=== PATIENT | male | born 1930 | race Caucasian/White ===

== ENCOUNTER 2016-06-09 19:35 | Inpatient (IN) | payer MEDICARE ==
[~2016-06-09] VITALS: Ht 185.4 cm; Wt 105.9 kg
[2016-06-09 22:06] LABS: BASOPHILS 0.2 % (0.0-2.0); EOSINOPHILS 0.2 % (0-7); HEMATOCRIT 39.5 % (42.0-54.0); HEMOGLOBIN 12.7 g/dL (13.5-17.5); IMMATURE GRANULOCYTES 0.7 % (0-5); LYMPHOCYTES 10.5 % (15-50); MCH 29.6 pg (26.0-34.0); MCHC 32.2 g/dL (31.0-37.0); MCV 92.1 fL (80.0-100.0); MEAN PLATELET VOLUME 10.7 fL (7.4-10.4); MONOCYTES 7.3 % (2-11); NEUTROPHILS 81.1 % (40-80); PLATELET COUNT 259 10x3/uL (130-400); RBC 4.29 10x6/uL (4.20-6.10); RDW 13.8 % (11.5-14.5)
[2016-06-09 22:09] LABS: ANION GAP 11.5 mmol/L (8-16); CARBON DIOXIDE 31.9 mmol/L (21.0-32.0); CREATININE - SERUM 1.5 mg/dL (0.6-1.3); POTASSIUM - SERUM 4.4 mmol/L (3.5-5.1)
--- NOTE | 2016-06-09 22:50 | NUR ---
PT ARRIVED TO UNIT VIA HOSPITAL BED ACCOMPANIED BY HOSPITAL STAFF AND FAMILY. PT IS A&OX4. O2 @2LPM VIA NC AND LEFT AC PERIPHERAL 20G IV PATENT AND SLOCKED. PT HAS FX RIBS ON THE LEFT SIDE AND C/O OF PAIN 11/19. WCTM. BED LOW. CL INR EACH.
[2016-06-09 22:59] VITALS: BP 190/85; BMI 31.7
--- NOTE | 2016-06-09 23:30 | NUR ---
PT REQ AND REC'D PRN PAIN MEDICATION. WCTM. BED LOW. CL IN REACH.
[2016-06-10 00:45] VITALS: BP 193/88
--- NOTE | 2016-06-10 01:54 | NUR ---
PT RESTING IN BED, AWAKE, DENIES NEEDS. WCTM. BED LOW. CL IN REACH.
--- NOTE | 2016-06-10 04:29 | NUR ---
PT RESTING IN BED, EYES OPEN. NO NEEDS VOICED. WCTM.
[2016-06-10 05:00] VITALS: BP 188/72
--- NOTE | 2016-06-10 05:29 | NUR ---
EYES CLOSED RESPIRATIONS WITH EASE AND UNLABORED.
--- NOTE | 2016-06-10 06:44 | NUR ---
PT HAS BECOME INCREASINGLY CONFUSED THROUGHT THE NIGHT. PT HAS TAKEN OFF TELEMETRY, O2 AND GOWN SEVERAL TIMES STATING HE DIDN'T KNOW WHY. PT ONLY ORIENTED TO SELF THIS AM.
--- NOTE | 2016-06-10 07:15 | NUR ---
AWAKE ALERT CONFUSED AT PRESENT RIB BELT IN PLACE ABD DISTENDED AT PRESENT RESP EVEN AND UNLABORED AT PRESENT 02 CONT AT 2L N/C AT PRESENT.
--- NOTE | 2016-06-10 09:00 | NUR ---
PT WILL NOT LEAVE TELEMTRY ON AT PRESENT.
[2016-06-10 09:42] VITALS: BP 147/62
--- NOTE | 2016-06-10 11:00 | NUR ---
QUIET IN ROOM AT PRESENT N/C.
--- NOTE | 2016-06-10 14:15 | NUR ---
CONFUSED INCONT OF URINE AT PRESENT DENIES ANY NEEDS NO FAMILY AT BEDSIDE TELEMTRY IN PLACE.
--- NOTE | 2016-06-10 15:00 | NUR ---
ECHO DONE MARTINE WELL AT PRESENT BED ALARM IN PLACE AT PRESENT.
--- NOTE | 2016-06-10 16:00 | NUR ---
REPOSITIONED FOR COMFORT AT PRESENT DENIES ANY NEEDS AT THIS TIME .
[2016-06-10 16:30] LABS: % SATURATION 8 % (15-55); IRON 24 ug/dl (35-150); TOTAL IRON BIND CAPACITY 294 ug/dl (260-445); UNSAT IRON BIND CAPACITY 270 ug/dl (150-375)
[2016-06-10 16:45] LABS: CKMB 2.6 U/L (0.0-3.6); CREATINE KINASE 154 UL (21-232); FERRITIN 191 ng/mL (3-244); TROPONIN-I 0.037 ng/mL (0.000-0.060)
[2016-06-10 17:20] VITALS: BP 139/70
--- NOTE | 2016-06-10 18:07 | NUR ---
SLEEPING QUIETLY AT PRESENT REP EVEN AND UNLABORED RIB BELT IN PLACE INCONT OF URINE.
[2016-06-10 19:00] VITALS: BP 160/81
--- NOTE | 2016-06-10 20:00 | NUR ---
ASSESSMENT PER FLOWSHEET. SLIGHTLY CONFUSED AT TIMES. TURNS SELF CROSSWAYS IN BED REPOSITIONED. RIB BINDER IN PLACE. IV PATENT LEFT AC SALINE LOCK. SITE CLEAR. SKIN TEAR TO RT ELBOW WITH BRUISES. OPSITE IN PLACE. O2 ON 2L/M PER NC. REFUSES TO WEAR SCD'S.
--- NOTE | 2016-06-10 21:30 | NUR ---
HGPK=[id number]. HUMALOG INSULIN 2 UNITS SUBC GIVEN RT ARM PER S/S.
--- NOTE | 2016-06-10 22:31 | NUR ---
RESTING IN BED BED ALARM BED ON SR UP X2 CALL LIGHT WITHIN REACH.
[2016-06-10 23:05] LABS: CKMB 2.1 U/L (0.0-3.6); CREATINE KINASE 136 UL (21-232); TROPONIN-I 0.029 ng/mL (0.000-0.060)
[2016-06-11] VITALS (13 sets, daily range): BP systolic 112–161; BP diastolic 53–80
--- NOTE | 2016-06-11 00:13 | NUR ---
EYES CLOSED RESPIRATIONS WITH EASE AND UNLABORED. SR UP X2 CALL LIGHT WITHIN REACH BED ALARM BED ACTIVATED.
--- NOTE | 2016-06-11 03:01 | NUR ---
PT NOW ON 8L/M OXIMYZER O2 SATS RUNNING 85-88% PLACED ON OXIMYZER BY RT TECH SATS CONTINUE AT 87-89% INCREASED O2 TO 10 L/M PER OXIMYZER. NOTIFIED HEAD PUMPER FOR SOME UPDRAFT TX AND POSSIBLE DIURECTIC. BILATERAL CRACKLES NOTED.
--- NOTE | 2016-06-11 03:29 | NUR ---
GOPAL RN BENCH LAY OUT TECHNICIAN OBTAINED ORDERS FROM ER FOR UNDRAFT TX. ALBUTEROL UP DRAFT TX GIVEN PER RT TECH. URINAL PLACED PT VOIDED 100CC'S SALVADOR COLORED URINE. ABDOMEN DISTENDED BUT SOFT. BLADDER SCAN DONE 0 ML FOUND IN BLADDER. REPPOSITIONED UPRIGHT IN BED. RT TECH INSTRUCTED PT ON USE OF INCENTIVE SPIROMETER.O2 INCREASED TO 15 L/M PER OXIMYZER PER SHITAL RT.
--- NOTE | 2016-06-11 03:40 | NUR ---
O2 SATS NOW SHOWING 93% ON 15 L/M OXIMYZER. RECEIVING ALBUTEROL UPDRAFT TX.
--- NOTE | 2016-06-11 04:18 | NUR ---
SITTING UPRIGHT IN BED O2 SAT READING SHOWS 92-93% ON 15 L/M OXIMYZER.
[2016-06-11 05:18] LABS: BASOPHILS 0.1 % (0.0-2.0); EOSINOPHILS 0.1 % (0-7); HEMATOCRIT 43.9 % (42.0-54.0); IMMATURE GRANULOCYTES 0.5 % (0-5); LYMPHOCYTES 7.4 % (15-50); MCH 29.2 pg (26.0-34.0); MCHC 31.9 g/dL (31.0-37.0); MCV 91.6 fL (80.0-100.0); MEAN PLATELET VOLUME 10.7 fL (7.4-10.4); NEUTROPHILS 84.9 % (40-80); PLATELET COUNT 267 10x3/uL (130-400); RBC 4.79 10x6/uL (4.20-6.10); RDW 13.6 % (11.5-14.5)
[2016-06-11 05:19] LABS: WBC 17.9 10x3/uL (4.8-10.8)
[2016-06-11 05:56] LABS: CALC OSMOLALITY 283 mosm/kg (275-300); CALCIUM 9.2 mg/dL (8.5-10.1); CARBON DIOXIDE 28.4 mmol/L (21.0-32.0); CHLORIDE - SERUM 98 mmol/L (98-107); CKMB 2.4 U/L (0.0-3.6); CREATINE KINASE 132 UL (21-232); CREATININE - SERUM 1.4 mg/dL (0.6-1.3); GLUCOSE 198 mg/dL (74-106); POTASSIUM - SERUM 4.2 mmol/L (3.5-5.1); SODIUM 137 mmol/L (136-145); TROPONIN-I < 0.017 ng/mL (0.000-0.060); UREA NITROGEN 25 mg/dL (7-18); eGFR NON AFRICAN AMERICAN 51 mL/min (90-120)
--- NOTE | 2016-06-11 08:09 | NUR ---
AWAKE AND ALERT. OIRENTED TO SELF ONLY. ATTEMPTS TO REORIENT WITHOUT SUCCESS. LUNGS HAVE RALES THROUGHOUT LUNG KELLER. NON PRODUCTIVE COUGH NOTED. SKIN IS INTACT WITHOUT REDNESS. IV TO LEFT AC IS PATENT WITHOUT REDNESS AT INSERTION SITE. DENIES NEEDS. HOB UP 40 DEGREES. O2 AT 16L OXYMYZER.
--- NOTE | 2016-06-11 10:19 | NUR ---
ASSISTED PER STAFF TO SIT ON SIDE OF BED TO TRY AND URINATE. WILL MONITOR.
--- NOTE | 2016-06-11 10:22 | NUR ---
WOUND CARE CONSULT: OLD BRUISES
--- NOTE | 2016-06-11 11:02 | NUR ---
Rehab Note- Rehab Prescreen Order received. The patient was admitted with broken ribs, that is not an acute rehab diagnosis. The patient is also [employer] & will require a PreAuth prior to IRF stay. Thank you for this referral! Stephany Harden RN Clinical Liaison, Rehab Care/Chris
--- NOTE | 2016-06-11 12:30 | NUR ---
LUNCH TRAY SERVED IN ROOM. REFUSED TO EAT. REFUSED OFFER OF HELP OR AN ALTERNATIVE TRAY. FOUND WITH O2 OFF. SATS AT 78% WILL MONITOR.
--- NOTE | 2016-06-11 14:00 | NUR ---
SATS CONTINUE IN LOW 80'S. EVEN WITH REBREATHER HE ONLY GOES UP TO 82. WILL PLACE ON BIPAP.
--- NOTE | 2016-06-11 14:16 | EC ---
PATIENT:HARVEY MARIE DATE OF SERVICE: 06/09/16 SEX: M MEDICAL RECORD: [id number] DATE OF : [birth year] LOCATION:[id number] AGE OF PATIENT: 85 ADMISSION DATE: 06/09/16 REFERRING PHYSICIAN: INTERPRETING PHYSICIAN: BREANNA ELENA MD ECHOCARDIOGRAM REPORT ECHO CHARGES 4 ECHO COMPLETE CLINICAL DIAGNOSIS: SYNCOPE ECHOCARDIOGRAPHIC MEASUREMENTS (adult normal given) AC root (d.<3.7cm) 3.6 LV Septum d (<1.2 cm> 1.7 Valve Excursion 1.4 LV Septum (systole) 2.6 Left Atria (s.<4.0cm> 4.2 LVPW d(<1.2cm) 1.4 RV (d.<2.3cm) 1.8 LVPW (sytole) 2.2 LV diastole(<5.6CM) 4.4 MV E-F(>70mm/sec) LV systole 2.0 LVOT Diameter 1.9 MV exc.(>10mm) Est.ejection fraction (50-75%) Pericardial Effusion N DOPPLER: LVIT A 135 E 64.0 LA RVSP 49.2 LVOT 127 AOP1/2T Asc. Ao 235 RVOT 88.0 RA PA 147 AV Gradient Peak 22.2 AV Mean 14.0 AV Area 1.4 MV Gradient Peak 9.2 MV Mean 2.4 MV Area COMMENTS: Limousine Rental Clerk: Gricel FABIANOE Jinrikisha Driver:1 Dr. Elena TAPE# PACS DATE OF SERVICE: 06/10/2016 Echocardiogram FINDINGS: 1. Left ventricular chamber size is within normal limits. Left ventricular systolic function is normal. Overall ejection fraction estimated at 50%. 2. Left atrium is enlarged at 4.2 cm. Right atrium and right ventricle chamber sizes are as well mildly dilated. 3. Valvular structures: Aortic valve demonstrates mild calcific aortic ECHOCARDIOGRAM REPORT [id number] HARVEY MARIE stenosis. Valve area calculates at 1.4 cm-squared. There is a gradient of 22 mm across the valve. The remaining valvular structures have normal structure and motion. 4. Doppler interrogation reveals mild mitral regurgitation, mild tricuspid regurgitation, no other valvular insufficiency or stenosis and pulmonary systolic pressure is mildly elevated estimated at 49 mmHg. 5. No evidence of pericardial effusion or left ventricular thrombus. TRANSINT:[id number] Voice Confirmation ID: [id number] DOCUMENT ID: [id number] BREANNA ELENA MD at 1416 CC: [id number] DICTATION DATE: 06/11/16 1005 CONTINUOUS IMPROVEMENT COACH: 06/11/16 1213 ADM IN [place] [id number] [place] [id number]
--- NOTE | 2016-06-11 14:26 | NUR ---
Patient Name: HARVEY MARIE Admission Status: ER Accout number: [id number] Admission Date: 06-09-2016 : 1928 Admission Diagnosis: Attending: MICHAEL Current LOS: 2 Anticipated DC Date: Planned Disposition: Primary Insurance: [employer] CHOICE PPO MCR [employer]VANT Discharge Planning Comments: CM MET WITH PATIENT AND CALLED NIECE (MARCO)REGARDING D/C NEEDS AND PLANS. PATIENT STATED HE IS FROM [place] AND JUST MOVED HERE RECENTLY-(NIECE ALSO MOVED HERE RECENTLY FROM [place]). PATIENT LIVES AT [facility] AND NIECE LIVES TOWARD THE [facility]. NIECE STATED HE IS INDEPENDENT FOR THE MOST PART BUT SHE CHECKS ON HIM ABOUT EVERY 2 DAYS. SHE GOES AND MAKES SURE HE HAS FOOD PREPARED AND HELPS WITH HIS MEDICATION. PATIENT HAS A WALKER, CANE, AND OXYGEN AT HIS HOME. PATIENT DOES NOT HAVE A PCP HERE. PATIENTS PHARMACY IS [facility]. NIECE AND PATIENT [facility]CE VERBALIZED CHOICE OVER PHONE. CM WILL CONTINUE TO FOLLOW PATIENT WITH D/C NEEDS AND PLANS. PCP NONE (DR. COPELAND WILL FOLLOW) [facility] [phone] MARCO (NICARLIN) [phone] DR. RICHARD IN [facility] [phone] Trawl Net Maker: Regina Bejarano Is the patient Alert and Oriented? Yes 0 * How many steps to enter\exit or inside your home? ELEVATOR 0 * PCP NONE (DR. COPELAND WILL FOLLOW) 0 * Pharmacy [facility] 0 * Preadmission Environment Home Alone 0 * ADLs Independent 0 * Equipment Cane Oxygen Walker 0 * List name and contact numbers for known caregivers / representatives who currently or will assist patient after discharge: MARCO (NICARLIN) [phone] * Community resources currently utilized None 0 * Additional services required to return to the preadmission environment? Yes 0 * Can the patient safely return to the preadmission environment? Yes 0 * Has this patient been hospitalized within the prior 30 days at any hospital? No 0 Grand Total: 0
--- NOTE | 2016-06-11 15:30 | NUR ---
DR BERNARDO HERE. PATIENT TRANSFERRED TO ICU ROOM 2308 VIA BED. MARCO SEGURA NOTIFIED OF TRANSFER AND REASON FOR SAME. ALL QUESTIONS ANSWERED.
--- NOTE | 2016-06-11 15:45 | NUR ---
RECIEVED FROM MEDSUR. PLACED ON BIPAP PER RT. VSS AT THIS TIME. 02 SAT 88%. WILL MONITOR.
--- NOTE | 2016-06-11 17:00 | NUR ---
ATTEMPTED F/C PLACEMENT X2. RESISTENCE MET AND INCH INTO URETHRA. COUDE CATH ATTEMPTED WELL REGULAR F/C. REPORTED TO DR. HAJI. STATED TO CONSULT DR. GIBSON IN AM FOR F/C PLACEMENT.
--- NOTE | 2016-06-11 18:00 | NUR ---
PT URINATEAD IN BED. MORPHINE 2MG ADMINISTERED PRIOR TO INCONTINENCE CARE. FULL LINEN CHANGE PROVIDED.
--- NOTE | 2016-06-11 19:40 | NUR ---
YARN DRY ROOM WORKER PER FLOWSHEET. PT LYING SUPINE, ON BIPAP 100% VIA MASK.. AWAKE, DIFFICULT TO UNDERSTAND, ORIENTED TO SITUATION BY NURSE. VSS. LUNGS CTA, DIMINISHED B/L BASES. PAIN NOTED TO L RIB, PT GRIMMACES AND BRACES WITH COUGHING. ABD BINDER ON ORDER, NOT REC'D YET. IVF TO L AC, DSG C/D/I. URINAL AT BS AND C/L IN REACH. ALARMS ON. PT CLOSE TO NURSE STATION.
--- NOTE | 2016-06-11 20:33 | NUR ---
DR. HAJI NOTIFIED OF PT C/O PAIN, RR 24-28. ABLE TO CALL FOR HELP WITH URINAL. HOLDS L SIDE. CHRISS LR ORDERED. NEW ORDERS REC'D.
--- NOTE | 2016-06-11 21:09 | NUR ---
NO VISITORS AT THIS TIME, PT RESTING QUIETLY, NO SIGN OF DISTRESS.
[2016-06-11 21:54] LABS: APPEARANCE CLEAR (CLEAR); COLOR DK YELLOW (YELLOW); SPECIFIC GRAVITY 1.025 (1.005-1.020)
[2016-06-11 21:55] LABS: BILIRUBIN NEGATIVE (NEGATIVE); GLUCOSE 50 mg/dL (NEGATIVE); KETONE NEGATIVE (NEGATIVE); LEUKOCYTE ESTERASE NEGATIVE (NEGATIVE); NITRITE NEGATIVE (NEGATIVE); PROTEIN TRACE mg/dL (NEGATIVE); UROBILINOGEN NORMAL (NORMAL)
--- NOTE | 2016-06-11 23:49 | NUR ---
REASSESSMENT PER FLOWSHEET, NO ACUTE CHANGES. PT INCONT OF URINE ON PAD. JONNY-CARE DONE. PT MORE RELAXED AND RESTING EASIER AT THIS TIME. VSS.
[2016-06-12] VITALS (24 sets, daily range): BP systolic 101–151; BP diastolic 53–76; Ht 185.4 cm; Wt 105.9 kg
--- NOTE | 2016-06-12 00:45 | NUR ---
ABD BINDER PLACED PER MD ORDER. PT COOPERATIVE, ASSISTS WITH TURNING. ORAL CARE PROVIDED.
--- NOTE | 2016-06-12 02:26 | NUR ---
ABD BINDER AND LIDOCAINE PATCH IN PLACE. PT PULLS 750-1000 ON I.S. WITH BREAK FROM BIPAP TO 15L OXYMIZER. WEAK COUGH NOTED. PLEASANTLY CONFUSED, KNOWS NIECE'S NAME IS MARCO AND HE IS IN THE HOSPITAL. REORIENTED BY NURSE. DENIES NEED TO VOID AT THIS TIME.
--- NOTE | 2016-06-12 04:18 | NUR ---
PT REMAINS ON OXYMIZER, POX 96%. TAKING ICE CHIPS, NO DIFFICULTY SWALLOWING.
[2016-06-12 04:58] LABS: HEMATOCRIT 38.8 % (42.0-54.0); HEMOGLOBIN 12.3 g/dL (13.5-17.5); MCH 29.2 pg (26.0-34.0); MCHC 31.7 g/dL (31.0-37.0); MCV 92.2 fL (80.0-100.0); MEAN PLATELET VOLUME 10.5 fL (7.4-10.4); PLATELET COUNT 230 10x3/uL (130-400); RBC 4.21 10x6/uL (4.20-6.10); WBC 20.1 10x3/uL (4.8-10.8)
[2016-06-12 05:13] LABS: ANION GAP 10.4 mmol/L (8-16); CALCIUM 8.7 mg/dL (8.5-10.1); CARBON DIOXIDE 29.2 mmol/L (21.0-32.0); CREATININE - SERUM 1.7 mg/dL (0.6-1.3); MAGNESIUM - SERUM 1.9 mg/dL (1.8-2.4); PHOSPHOROUS 3.1 mg/dL (2.5-4.9); POTASSIUM - SERUM 3.6 mmol/L (3.5-5.1)
[2016-06-12 05:38] LABS: LYMPHOCYTES 9 % (15-50); MONOCYTES 2 % (2-11); NEUTROPHILS 79 % (40-80); PLATELET ESTIMATE NORMAL
--- NOTE | 2016-06-12 05:42 | NUR ---
PO MEDS WITH SIP OF WATER. NO DIFFICULTY SWALLOWING. I.S. 750 X 5.. PT COOPERTIVE, SPLINTING CHEST WITH COUGH.
--- NOTE | 2016-06-12 06:17 | NUR ---
AT BS VISITING.
--- NOTE | 2016-06-12 07:15 | NUR ---
REPORT RECIEVED FROM LIAISON ENGINEER NURSE. PT RESTING IN BED QUIETLY ON 15L OXIMIZER. RESP EVEN AND UNLABORED, PLEASANTLY CONFUSED. ABLE TO STATE NAME BUT CONFUSED TO TIME, PLACE, AND SITUATION. RECIEVING MORPHINE VIA SUPERVISOR DITCHING. STATES PAIN IS WELL MANAGED WITH SUPERVISOR DITCHING , BUT STILL HAS DISCOMFORT WHEN COUGHING OR MOVING IN BED. CALL LIGHT IN REACH. BED IN LOW POSITION. WILL CONTINUE TO ASSESS FOR CHANGES THROUGHOUT SHIFT. ASSESSENT COMPLETE PER FLOWSHEET.
--- NOTE | 2016-06-12 09:45 | NUR ---
MORNING MEDICATIONS ADMINISTERED PER EMAR. PT ABLE TO SWALLOW MEDICATIONS WITHOUT DIFFICULTY.
--- NOTE | 2016-06-12 11:00 | NUR ---
DR. HAJI AT BEDSIDE. UPDATE PROVIDED.
[2016-06-12 11:17] LABS: FOLATE (FOLIC ACID) - SERUM >20.0 ng/mL (>3.0)
--- NOTE | 2016-06-12 12:00 | NUR ---
PT REMAINS ON BIPAP AT THIS TIME. O2 SAT 95%. BREATHING IS EVEN AND UNLABORED. PT DENIES PAIN AT THIS TIME. WILL CONTINUE TO ASSESS.
--- NOTE | 2016-06-12 12:30 | NUR ---
DR. GIBSON AT BEDSIDE TO PLACE F/C. EVIDENT THERE WAS A MEATAL STRICTURE. PAIGE BROWN WAS ABLE TO PLACE COUDE CATHETER USING A GUIDE. SUCCESSFUL PLACEMENT NOTED. 300CC OF URINE NOTED TO COLLECTION BAG. WILL MONITOR OUTPUT.
--- NOTE | 2016-06-12 14:00 | NUR ---
ACCOMPANIED PT TO CT. PLACED ON NRB FOR TRASPORT.
--- NOTE | 2016-06-12 14:30 | NUR ---
PLACED ON VAPOTHERM PER RT AT 40L.
--- NOTE | 2016-06-12 14:45 | NUR ---
CALLED AND SPOKE TO SHERIF, UPDATE PROVIDED. DR. GIBSON STATED HE MAY TAKE PT TO OR TOMORROW TO OPERATE ON FX'D RIBS. PLANS TO PLACE AN EPIDURAL FOR PAIN CONTROL. SHERIF AGREES WITH PLAN. STATED SHE WOULD BE HERE FOR THE NEXT VISITATION TIME AT 1800. DISCUSSED NEED OF PT'S CURRENT MEDICATIONS. STATED SHE WOULD BRING LIST WITH HER. PHARMACY UPDATED.
--- NOTE | 2016-06-12 17:00 | NUR ---
PT RESTING IN BED WITH EYES CLOSED. RESP EVEN AND UNLABORED ON VAPOTHERM. VSS AT THIS TIME. NO ACUTE CHANGES NOTED.
[2016-06-12] MEDS ORDERED: BAYER CHEWABLE81 MG PO (19:21)
[2016-06-12] MEDS ORDERED: CRESTOR10 MG PO (19:22)
[2016-06-12] MEDS ORDERED: LISINOPRIL5 MG PO (19:22)
[2016-06-12] MEDS ORDERED: FUROSEMIDE20 MG PO (19:22)
[2016-06-12] MEDS ORDERED: CALTRATE 600 M600 M1 PO (19:22)
[2016-06-12] MEDS ORDERED: FLOMAX0.4 MG PO (19:22)
[2016-06-12] MEDS ORDERED: OMEPRAZOLE40 MG PO (19:24)
[2016-06-12] MEDS ORDERED: NITROQUICK0.4 MG SL (19:24)
[2016-06-12] MEDS ORDERED: MYLANTA / MAALO30 ML PO (19:24)
[2016-06-12] MEDS ORDERED: VENTOLIN HFA18 GM INH (19:26)
--- NOTE | 2016-06-12 19:30 | NUR ---
REC'D TO CARE, BUTTON DECORATING MACHINE OPERATOR PER FLOWSHEET. PT AWAKENS EASILY, PLEASANTLY CONFUSED, ORIENTED TO SELF ONLY. REORIENTED BY NURSE, ANSWERS QUESTIONS APPROP. REPORTS L SIDE PAIN WITH COUGHING AND MOVEMENT ONLY - EXPERIENCE DESIGNER MORPHINE IN USE. PT USES, REQUIRES REMINDING. VSS, NO SIGN OF DISTRESS. 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 LUNGS WITH CRACKLES B/L - PT ENCOURAGED TO COUGH AND SPLINT CHEST. HUITRON CATH PATENT AND DRAINING CLEAR, YELLOW URINE. PT BACK TO REST EASILY. ALARMS ON AND CL IN REACH.
--- NOTE | 2016-06-12 21:22 | NUR ---
NO VISITORS AT THIS TIME. FSBS 160 - COVERAGE PER S/S.
--- NOTE | 2016-06-12 22:15 | NUR ---
NEW 20GA PIV SITED TO R WRIST X 1 STICK, TUBINGS CHANGED. L AC PIV JENNY'Angel.
--- NOTE | 2016-06-12 23:02 | NUR ---
REASSESSMENT PER FLOWSHEET, NO ACUTE CHANGES. VSS. NO SIGN OF DISTRESS. RT AT BS - PLACED ON BIPAP WITH FIO2 80% PER MD ORDER. ALARMS ON. C/L IN REACH.
[2016-06-13] VITALS (24 sets, daily range): BP systolic 104–150; BP diastolic 55–73
--- NOTE | 2016-06-13 00:32 | NUR ---
BREAK FROM BIPAP FOR ORAL CARE, PT COOPERATIVE. REPOSITIONED UP IN BED, HEELS BRIDGED.
--- NOTE | 2016-06-13 02:54 | NUR ---
COMPLETE SURGERY PREP/BATH AND LINEN CHANGE DONE. WATCH AND 2 RINGS REMOVED AND PLACED IN LOCK DRAWER. JONNY-CARE DONE. SEE REASSESSMENT.
--- NOTE | 2016-06-13 04:40 | NUR ---
REPOSITIONED UP IN BED, HEELS BRIDGED. PT COOPERATIVE, HOLDS L SIDE WITH TURNING..
[2016-06-13 05:07] LABS: BASOPHILS 0.1 % (0.0-2.0); EOSINOPHILS 0.6 % (0-7); HEMATOCRIT 35.5 % (42.0-54.0); HEMOGLOBIN 10.9 g/dL (13.5-17.5); IMMATURE GRANULOCYTES 0.4 % (0-5); LYMPHOCYTES 8.7 % (15-50); MCH 28.7 pg (26.0-34.0); MCHC 30.7 g/dL (31.0-37.0); MCV 93.4 fL (80.0-100.0); MEAN PLATELET VOLUME 10.9 fL (7.4-10.4); MONOCYTES 5.4 % (2-11); NEUTROPHILS 84.8 % (40-80); PLATELET COUNT 215 10x3/uL (130-400); WBC 16.2 10x3/uL (4.8-10.8)
[2016-06-13 05:21] LABS: ANION GAP 9.2 mmol/L (8-16); CARBON DIOXIDE 28.5 mmol/L (21.0-32.0); CREATININE - SERUM 1.4 mg/dL (0.6-1.3); MAGNESIUM - SERUM 1.6 mg/dL (1.8-2.4); PHOSPHOROUS 2.8 mg/dL (2.5-4.9); POTASSIUM - SERUM 3.7 mmol/L (3.5-5.1)
--- NOTE | 2016-06-13 07:15 | NUR ---
REPORT RECIEVED FROM DIRECTOR OF PUPIL PERSONNEL PROGRAM NURSE. PT RESTING QUIETLY ON BIPAP.RESP EVEN AND UNLABORED. NO SIGNS OF ACUTE DISTRESS NOTED AT THIS TIME. VSS. WILL CONT TO ASSESS FOR CHANGES. CALL LIGHT IN REACH. BED IN LOW POSITION. ASSESSMENT COMPLETE PER FLOWSHEET.
--- NOTE | 2016-06-13 09:00 | NUR ---
SPOKE WITH DR. GIBSON. STATED HE WOULD NOT OPERATE ON PT. BUT WOULD STILL LIKE ANESTHESIA TO PLACE EPIDURAL.
--- NOTE | 2016-06-13 11:00 | NUR ---
THORACIC EPIDDURAL PLACED PER ANESTHESIA, PT EXPERIECED HYPOTENSION AND BRADYCARDIA. STARTED ON DOPAMINE GTT. WILL TITRATE NEEDED.
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
--- NOTE | 2016-06-13 15:00 | NUR ---
NO CHANGES NOTED AT THIS TIME. PLACED ON VAPOTHERM PER RT. O2 SAT 97%. WILL CONTINUE TO MONITOR.
--- NOTE | 2016-06-13 17:00 | NUR ---
RESP EVEN AND UNLABORED ON VAPOTHERM. VSS AT THIS TIME. CALL LIGHT IN REACH. BED IN LOW POSITION. WILL CONTINUE TO ASSESS FOR CHANGES.
--- NOTE | 2016-06-13 19:00 | NUR ---
REPORT RECEIVED AND ASSESSMENT COMPLETED. SEE ASSESSMENT FOR FULL DETAILS. PT ON VAPORTHERM 40% SAT 95% VSS WILL CONTINUE TO MONITOR.
--- NOTE | 2016-06-13 21:36 | NUR ---
2100 FSBS TAKEN. 226. TREATED PER SLIDING SCALE. NO OTHER CHANGES AT THIS TIME. VSS. WILL MONITOR
--- NOTE | 2016-06-13 23:20 | NUR ---
REASSESSMENT COMPLETED SEE FLOWSHEET. PT PULLED IV. REPLACED IN RIGHT WRIST. PT NOW ON BIPAP @ 100%. VSS WILL MONITOR.
[2016-06-14] VITALS (24 sets, daily range): BP systolic 99–171; BP diastolic 50–97
--- NOTE | 2016-06-14 01:00 | NUR ---
NO CHANGE IN PT STATUS AT THIS TIME. VSS. WILL MONITOR.
--- NOTE | 2016-06-14 03:00 | NUR ---
REASSESSMENT COMPLETED. SEE FLOWSHEET.
[2016-06-14 05:02] LABS: BASOPHILS 0.1 % (0.0-2.0); EOSINOPHILS 0.6 % (0-7); HEMATOCRIT 34.5 % (42.0-54.0); IMMATURE GRANULOCYTES 0.4 % (0-5); LYMPHOCYTES 11.3 % (15-50); MCHC 31.9 g/dL (31.0-37.0); MONOCYTES 6.2 % (2-11); NEUTROPHILS 81.4 % (40-80); PLATELET COUNT 237 10x3/uL (130-400); RBC 3.79 10x6/uL (4.20-6.10); RDW 13.6 % (11.5-14.5); WBC 14.2 10x3/uL (4.8-10.8)
--- NOTE | 2016-06-14 05:12 | NUR ---
PT REPOSITIONED. NO CHANGES IN STATUS AT THIS TIME. VSS. WILL MONITOR.
[2016-06-14 05:35] LABS: ANION GAP 13.1 mmol/L (8-16); CALCIUM 8.6 mg/dL (8.5-10.1); CARBON DIOXIDE 28.1 mmol/L (21.0-32.0); CREATININE - SERUM 1.3 mg/dL (0.6-1.3); MAGNESIUM - SERUM 1.9 mg/dL (1.8-2.4); PHOSPHOROUS 2.6 mg/dL (2.5-4.9); POTASSIUM - SERUM 3.2 mmol/L (3.5-5.1)
--- NOTE | 2016-06-14 07:00 | NUR ---
Received report and assumed care of patient. Pt currently awake, alert and oriented. Pt having difficulty hearing due to Vapotherm noise. Epidural in place, dressing CDI. Currently infusing 4ml/hr with a 3ml/hand packer/packager dose. Pt complaining of pain 11/19, CARRY OUT CLERK dose administered. Vapotherm @ 40L 100%. Right wirst PIV with medipore tape for securement in place with D51/2 @ 75mls/hr. PIV site is CDI, no redness or signs of infiltration. Rodríguez in place draining clear, yellow urine. SCDs in place, skin checked for redness or breakdown. Heels elevated off bed via pillows. See shift assessment flowsheet for all findings.
--- NOTE | 2016-06-14 08:45 | NUR ---
Patient changed settings on vapotherm. vapotherm readjusted. Instructed patient not to touch the vapotherm.
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
--- NOTE | 2016-06-14 10:12 | NUR ---
Nutrition follow-up: Diet: Regular as tolerated Pt eating breakfast at this time; po intake ~80% of meal Labs reviewed Wt: 228# Will provide food choices with selective menus and honor food preferences. RDN following.
--- NOTE | 2016-06-14 10:30 | NUR ---
breathing treatment per RT and BIPAP mask. Pt keeps removing mask.
--- NOTE | 2016-06-14 10:40 | NUR ---
Ross with speech here for swallow eval, informed him patient is receiving breathing treatment and that itd be finished shortly.
--- NOTE | 2016-06-14 11:22 | NUR ---
Patient asking for Go phone, phone not found in patient belongings.
--- NOTE | 2016-06-14 12:07 | NUR ---
Ross with speech in room to see patien for swallow eval. PT did well and is on a regular diet per his recommendations. Pt denied lunch tray due to eating with the evaluation. Ross will follow up tomorrow due to patient confusion.
--- NOTE | 2016-06-14 13:30 | NUR ---
RT in room doing breathing treatment.
--- NOTE | 2016-06-14 14:45 | NUR ---
Patient appears asleep.
--- NOTE | 2016-06-14 17:30 | NUR ---
Patient D/C IV due to confusion. Pt reoriented. New PIV 20 gauge started in right hand after 1 additional attempt. Pt tolerated well. PIV wrapped in COBAN.
--- NOTE | 2016-06-14 17:58 | NUR ---
Patients neice called, password verified, update given.
--- NOTE | 2016-06-14 18:37 | NUR ---
RT in room to do breathing treatment at this time.
--- NOTE | 2016-06-14 19:35 | NUR ---
REC'D TO CARE, INSURANCE LOSS CONTROL SURVEYOR PER FLOWSHEET. PT AWAKE, PLEASANTLY CONFUSED. IV INFUSING TO R HAND, SECURED WITH COBAN. 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 LUNGS WITH CRACKLES B/L AND DIMINISHED BASES. PT HOLDS L SIDE WITH COUGHING. EPIDURAL INFUSING - SEE FLOWSHEET. PT ONLY SHOWING SIGNS OF PAIN WITH MOVEMENT AND COUGHING. HUITRON CATH PATENT.. ATTEMPT TO REORIENT, WILL CONT CLOSE MONITORING. ALARMS ON.
--- NOTE | 2016-06-14 21:00 | NUR ---
NO VISITORS, PT RESTING QUIETLY.
--- NOTE | 2016-06-14 22:10 | NUR ---
PT INCONT OF SMALL SMEAR YELLOW STOOL. JONNY-CARE, HUITRON CARE DONE AND PADS CHANGED. PT COOPERATIVE AND ASSISTED WITH TURNING.
--- NOTE | 2016-06-14 22:52 | NUR ---
REASSESSMENT PER FLOWSHEET. NO ACUTE CHANGES. AT THIS TIME PT IS RESTING QUIETLY, BIPAP VIA MASK PER MD ORDER. VSS. NO SIGN OF DISTRESS.
[2016-06-15] VITALS (23 sets, daily range): BP systolic 93–190; BP diastolic 47–100
--- NOTE | 2016-06-15 00:51 | NUR ---
PT CONFUSED AND AGITATED. SWITCHED BACK TO VAPOTHERM, GIVEN DRINK OF WATER AND PT CALMED. UNABLE TO REORIENT, PT HAVING HALLUCINATIONS. POX 95% - WILL CONT CLOSE MONITORING.
--- NOTE | 2016-06-15 01:00 | NUR ---
PT CONFUSED BUT COOPERATIVE, STILL HALLUCINATING AND GRABBING AT THINGS IN THE AIR.
--- NOTE | 2016-06-15 03:06 | NUR ---
ABG RESULTED. SEE REASSESSMENT.
[2016-06-15 04:54] LABS: BASOPHILS 0.2 % (0.0-2.0); EOSINOPHILS 0.8 % (0-7); HEMATOCRIT 34.8 % (42.0-54.0); HEMOGLOBIN 11.2 g/dL (13.5-17.5); IMMATURE GRANULOCYTES 0.9 % (0-5); LYMPHOCYTES 12.2 % (15-50); MCH 29.1 pg (26.0-34.0); MCHC 32.2 g/dL (31.0-37.0); MCV 90.4 fL (80.0-100.0); MONOCYTES 9.3 % (2-11); NEUTROPHILS 76.6 % (40-80); PLATELET COUNT 254 10x3/uL (130-400); RBC 3.85 10x6/uL (4.20-6.10); RDW 13.5 % (11.5-14.5); WBC 13.3 10x3/uL (4.8-10.8)
[2016-06-15 05:10] LABS: ANION GAP 10.2 mmol/L (8-16); CALCIUM 8.8 mg/dL (8.5-10.1); CARBON DIOXIDE 30.3 mmol/L (21.0-32.0); CREATININE - SERUM 1.4 mg/dL (0.6-1.3); POTASSIUM - SERUM 3.5 mmol/L (3.5-5.1)
--- NOTE | 2016-06-15 05:12 | NUR ---
PT RESTING QUIETLY AT THIS TIME. VSS. NO SIGN OF DISTRESS.
--- NOTE | 2016-06-15 07:00 | NUR ---
Received report and assumed care of patient from Morgan Duarte RN. Patient is currently awake, alert and confused. Vapotherm at 40 LPM and 85% FIO2. Epidural dressing CDI. Right hand PIV wrapped with Coban, dressing CDI. Sinus rhythm on CM. Rodríguez cath draining clear yellow urine. See shift assessment flowsheet for all findings.
--- NOTE | 2016-06-15 07:45 | NUR ---
Patient confused, pulling off Vapotherm . Eva with Rt switched him to oxmizer.
--- NOTE | 2016-06-15 09:10 | NUR ---
Patient attempting to get OOB. Pt had BM, cleaned up, linens changed. Pt pulled up in bed. Instructed to splint and cough, good productive cough performed.
--- NOTE | 2016-06-15 09:33 | NUR ---
Patient attempting to get OOB again. Bed alarm on. Pt pulled up and turned. Epidural remains intact.
--- NOTE | 2016-06-15 10:20 | NUR ---
Patient resting at this time.
--- NOTE | 2016-06-15 11:20 | NUR ---
around to see patient. POC discussed.
--- NOTE | 2016-06-15 11:30 | NUR ---
Patients brother, Rohan Cruz called from [place] and was provided update upon being able to provide and information about patient. Pt also okayed me to speak to his brother about his condition and care.
--- NOTE | 2016-06-15 12:37 | NUR ---
Patient tolerating BIPAP, no attempts to remove it at this time.
--- NOTE | 2016-06-15 13:23 | NUR ---
Patient had pulled off O2, O2 saturation had decreased, pt pulled out christine cath. A complete linen change was performed, christine cath was replaced and bilateral soft wrist restraints were placed per order.
--- NOTE | 2016-06-15 14:15 | NUR ---
Bipap remains in place, bilateral wrist restraints. Patient sleeping. VSS.
--- NOTE | 2016-06-15 17:13 | NUR ---
Patient resting at this time. On oxymizer, bilateral wrist restraints remain in place. VSS.
--- NOTE | 2016-06-15 19:10 | NUR ---
REPORT RECEIVED AND CARE TAKEN OVER. PATIENT RESTING IN BED, COMPLAINS OF MODERATE PAIN IN LEFT RIBS, BOLUS GIVEN THROUGH EPIDURAL WHICH IS IN PLACE AND PATENT. S1S2 NOTED, CRACKLES HEARD WITH LUNG SOUNDS THAT DID NOT CLEAR WITH COUGH. COUGH IS WEAK AND NON-PRODUCTIVE. INCENITIVE DONE AT THIS TIME WITH POOR EFFORT. PULLED TO ABOUT 500. OXYMYZER ON @ 10L WITH SATS IN MID 90'S. PERIPHERAL PULSES +2. SEE FLOWSHEET FOR MORE DETAILS.
--- NOTE | 2016-06-15 19:47 | NUR ---
Paged for order for hypertension through answering service.
--- NOTE | 2016-06-15 20:05 | NUR ---
DR COPELAND CALLED BACK AND I REPORTED PATIENT WAS HYPERTENSIVE, BUT AFTER BOLUS OF PAIN MEDS PATIENT'S PRESSURE DROPPED TO LOW 100'S. TOLD HER I WOULD MONITOR BP AND CALL BACK WITH ANY NEEDS.
--- NOTE | 2016-06-15 21:10 | NUR ---
NO VISITORS AT THIS TIME.
--- NOTE | 2016-06-15 23:10 | NUR ---
REASSESSMENT COMPLETE. PATIENT IS NOW ON BIPAP WITH SATS IN HIGH 90'S. [facility] INTACT, PATIENT DENIES PAIN AT THIS MOMENT. VSS. WILL MONITOR.
[2016-06-16] VITALS (23 sets, daily range): BP systolic 89–172; BP diastolic 41–90
--- NOTE | 2016-06-16 01:10 | NUR ---
PATIENT RESTING IN BED WITH EYES CLOSED, REPOSITIONED FOR COMFORT, [facility] INTACT AND DRESSING DRY.
--- NOTE | 2016-06-16 03:10 | NUR ---
REASSESSMENT COMPLETE, NO CHAGES AT THIS TIME. XRAY IN ROOM.
[2016-06-16 04:35] LABS: BASOPHILS 0.2 % (0.0-2.0); EOSINOPHILS 1.3 % (0-7); HEMATOCRIT 33.5 % (42.0-54.0); HEMOGLOBIN 10.7 g/dL (13.5-17.5); IMMATURE GRANULOCYTES 2.6 % (0-5); LYMPHOCYTES 11.6 % (15-50); MCH 28.8 pg (26.0-34.0); MCHC 31.9 g/dL (31.0-37.0); MCV 90.1 fL (80.0-100.0); MEAN PLATELET VOLUME 10.4 fL (7.4-10.4); MONOCYTES 9.5 % (2-11); NEUTROPHILS 74.8 % (40-80); PLATELET COUNT 248 10x3/uL (130-400); RBC 3.72 10x6/uL (4.20-6.10); RDW 13.6 % (11.5-14.5); WBC 13.4 10x3/uL (4.8-10.8)
[2016-06-16 04:49] LABS: ANION GAP 9.7 mmol/L (8-16); CALCIUM 8.7 mg/dL (8.5-10.1); CREATININE - SERUM 1.1 mg/dL (0.6-1.3); MAGNESIUM - SERUM 1.9 mg/dL (1.8-2.4); PHOSPHOROUS 2.4 mg/dL (2.5-4.9); POTASSIUM - SERUM 3.7 mmol/L (3.5-5.1)
--- NOTE | 2016-06-16 05:10 | NUR ---
PATIENT INCONTINENT OF STOOL, PATIENT CLEANED AND LINENS CHANGED. PATIENT TOLERATED WELL, VSS.
--- NOTE | 2016-06-16 07:40 | NUR ---
LYING IN BED RESTING AT THIS TIME, BIPAP IN PLACE. NO ACUTE DISTRESS NOTED. PT AWAKENS EASILY WHEN STAFF STATES PT NAME. [facility] PUMP IN PLACE, NO LEAKING NOTED. WILL CONTINUE PLAN OF CARE.
--- NOTE | 2016-06-16 07:55 | NUR ---
DR MANNING ROUNDED ON PT AT THIS TIME. NOTED PT HAS BEEN HAVING CONFUSION. DR MANNING TURNED OFF EPIDURAL PUMP AT THIS TIME TO SEE IF CONFUSION CAN BECOME MORE CLEAR. NO ACUTE DISTRESS NOTED. WILL CONTINUE PLAN OF CARE.
--- NOTE | 2016-06-16 09:21 | NUR ---
INCONTINENT CARE PROVIDED. NOTED INCONTINENT BOWEL MOVEMENT. PT CLEANED UP AND JONNY CARE AND HUITRON CARE PROVIDED VIA TOTAL X 2 PERSON ASSIST. NO ACUTE DISTRESS NOTED. WILL CONTINUE PLAN OF CARE.
--- NOTE | 2016-06-16 10:11 | NUR ---
SITTING UP IN BED AT THIS TIME. NO ACUTE DISTRESS NOTED. STILL NOTED TO HAVE CONFUSION TO SITUATION, TIME, AND LOCATION. REORIENTATION PROVIDED FREQUENTLY. WILL CONTINUE PLAN OF CARE.
--- NOTE | 2016-06-16 11:37 | NUR ---
UP IN BED AWAKE AT THIS TIME. NOTED PT STILL HAVING SHORTNESS OF BREATH, OXIMIZER AT 13L AND OXYGEN SATURATION AT 88% PT IS EATING LUNCH. RESPIRATORY WILL PLACE BIPAP SOON PT FINISHES LUNCH. WILL CONTINUE PLAN OF CARE.
--- NOTE | 2016-06-16 12:58 | NUR ---
RESTING AT THIS TIME. NO ACUTE DISTRESS NOTED. BIPAP IN PLACE. OXYGEN SATURATION AT 91%. WILL CONTINUE PLAN OF CARE.
--- NOTE | 2016-06-16 14:49 | NUR ---
NOTED PT TO BE MORE ORIENTED AT THIS TIME. STILL SOME CONFUSION TO SITUATION AND TIME HOWEVER PT ABLE TO STATE LOCATION AND NAME. PT ALSO AT THIS TIME COMPLAINS OF PAIN TO RIBS STATING HE IS HURTING "PRETTY BAD." WILL CONTACT DR NAIK TO NOTIFY FOR FURTHER ORDERS.
--- NOTE | 2016-06-16 15:01 | NUR ---
ANESTHESIOLOGY ROUNDING ON PT AT THIS TIME. EPIDURAL RESTARTED AT THIS TIME. WILL CONTINUE PLAN OF CARE.
--- NOTE | 2016-06-16 16:00 | NUR ---
PT NOT NOTED TO ATTEMPT TO PULL AT LINES OR TUBING. BILATERAL SOFT WRIST RESTRAINTS DC AT THIS TIME. WILL CONTINUE TO OBSERVE.
--- NOTE | 2016-06-16 16:08 | NUR ---
NOTED PT BROTHER AND IMELDA TAPAN, VISITED PT AT THIS TIME FROM OUT OF STATE. UPDATE GIVEN. PT SHERIF REQUESTED THIS NURSE SPEAK WITH HER OUTSIDE OF ROOM. SHERIF STATED SHE WAS CONCERNED IF THE INJURY OF THE PATIENT WAS CONSISTENT WITH THE STORY OF A FALL. THIS NURSE CONTACT CASE MANAGEMENT AND WITH THE HELP OF CASE MANAGEMENT REVIEWED PT PAST NOTES AND NOTED THAT THERE WERE NO IMPLICATIONS WHICH CHALLENGED THE INTEGRITY OF THE CAUSE OF INJURY. DR COPELAND ALSO CALLED AT THIS TIME AND NOTIFIED OF PT SHERIF CONCERN AND DR COPELAND STATED SHE ALSO FELT LIKE THE STORY WAS CONSISTENT WITH THE INJURY. PT DEONNACARLIN NOTIFIED OF INFORMATION AND SHE RESPONDED THAT SHE FELT BETTER AND FELT AT "PEACE" WITH THE STORY. NO FURTHER QUESTIONS OR CONCERNS.
--- NOTE | 2016-06-16 17:14 | NUR ---
NOTED EPIDURAL DRIP ORDER HAD BEEN DC BY "[facility]" CALLED DR MANNING TO SEE IF HE WANTED THIS NURSE TO REORDER IT SINCE THEY DID NOT HAVE INTENTIONS TO DC ORDER YET. DR MANNING STATED TO NOT REORDER ANYTHING BECAUSE HE WOULD ROUND AND SEE PT IN A LITTLE WHILE AND FIX THE ORDER THEN. WILL CONTINUE TO OBSERVE.
--- NOTE | 2016-06-16 18:09 | NUR ---
STATES AT THIS TIME HIS PAIN LEVEL HAS DECREASED TO A TOLERABLE LEVEL. DENIES ANY NEEDS. NO ACUTE DISTRESS NOTED. WILL CONTINUE PLAN OF CARE.
--- NOTE | 2016-06-16 19:30 | NUR ---
REPORT RECEIVED AND CARE ASSUMED. AWAKE AND ORIENTED TO NAME, PLACE AND TIME. DENIES ANY PAIN AT THIS TIME. EPIDURAL ON AT 4 ML CONTINUOUS DRIP. O2 VIA OXIMIZER ON AT 10 ML. HUITRON CATHETER PATENT WITH YELLOW URINE. RIGHT HAND IV SITE PATENT,BUT OOZING BLOODY DRAINAGE. SCD'S ON BILATERALLY. WILL CONTINUE TO MONITOR CLOSELY.
--- NOTE | 2016-06-16 22:40 | NUR ---
NEW IV RESITED IN LEFT FOREARM X ONE ATTEMPT WITH #20G CATHETER PER KARYN PUGH RN
--- NOTE | 2016-06-16 23:05 | NUR ---
REASSESSMENT COMPLETED. BI-PAP PLACED ON PATIENT AT THIS TIME. NO SIGNS OF DISTRESS NOTED. EPIDURAL PUMP WITH CAD. ON CONTINUOUS DRIP AT 4 ML.HR.
[2016-06-17] VITALS (24 sets, daily range): BP systolic 87–159; BP diastolic 43–73
[2016-06-17 04:48] LABS: BASOPHILS 0.2 % (0.0-2.0); HEMATOCRIT 31.2 % (42.0-54.0); HEMOGLOBIN 10.1 g/dL (13.5-17.5); IMMATURE GRANULOCYTES 4.6 % (0-5); LYMPHOCYTES 11.6 % (15-50); MCH 29.1 pg (26.0-34.0); MCHC 32.4 g/dL (31.0-37.0); MCV 89.9 fL (80.0-100.0); MEAN PLATELET VOLUME 10.3 fL (7.4-10.4); NEUTROPHILS 72.6 % (40-80); PLATELET COUNT 262 10x3/uL (130-400); RBC 3.47 10x6/uL (4.20-6.10); RDW 13.8 % (11.5-14.5); WBC 13.5 10x3/uL (4.8-10.8)
[2016-06-17 05:08] LABS: ANION GAP 13.3 mmol/L (8-16); CALCIUM 8.5 mg/dL (8.5-10.1); CARBON DIOXIDE 26.2 mmol/L (21.0-32.0); CREATININE - SERUM 1.3 mg/dL (0.6-1.3); MAGNESIUM - SERUM 1.8 mg/dL (1.8-2.4); PHOSPHOROUS 2.8 mg/dL (2.5-4.9); POTASSIUM - SERUM 3.5 mmol/L (3.5-5.1)
--- NOTE | 2016-06-17 07:36 | NUR ---
SITTING UP IN BED AT THIS TIME. BIPAP IN PLACE. NO ACUTE DISTRESS NOTED AT THIS TIME. PT STILL HAVING SOME CONFUSION TO TIME. REORIENTATIN PROVIDED. ABLE TO STATE LOCATION, SITUATION, AND NAME. WILL CONTINUE PLAN OF CARE.
--- NOTE | 2016-06-17 09:12 | NUR ---
PT SWITCHED FROM BIPAP TO OXIMIZER AT 13L AT THIS TIME. OXYGEN SATURATION AT 91%. WILL CONTINUE PLAN OF CARE.
--- NOTE | 2016-06-17 09:13 | NUR ---
SITTING UP IN BED EATING BREAKFAST VIA SET UP ASSIST. NO ACUTE DISTRESS NOTED. WILL CONTINUE PLAN OF CARE.
--- NOTE | 2016-06-17 12:27 | NUR ---
UP IN BED EATING LUNCH VIA SETUP ASSIST. DENIES ANY NEEDS. WILL CONTINUE PLAN OF CARE.
--- NOTE | 2016-06-17 14:26 | NUR ---
UP IN BED AWAKE AT THIS TIME. DENIES ANY NEEDS. NO ACUTE DISTRESS NOTED. WILL CONTINUE PLAN OF CARE.
--- NOTE | 2016-06-17 17:29 | NUR ---
TOTAL BED CHANGE PROVIDED. NOTED SMALL BOWEL MOVEMENT. JONNY CARE AND HUITRON CARE PROVIDED VIA TOTAL X 2 ASSIST. DENIES ANY NEEDS AT THIS TIME. WILL CONTINUE PLAN OF CARE.
--- NOTE | 2016-06-17 17:56 | NUR ---
NOTED BLOOD PRESSURE OF 87/46 WITH MAP OF 58 AT THIS TIME. BP CUFF READJUSTED AND BLOOD PRESSURE RECHECKED AND STILL NOTED LOW. PT IS ON EPIDURAL DRIP AND HAS NOT RECIEVED BOLUS. WHEN SPEAKING WITH PT HE STATES HE FEELS FINE. WILL CONTINUE TO OBSREVE.
--- NOTE | 2016-06-17 18:24 | NUR ---
BP 97/44 MAP 56. CONTINUING TO OBSERVE.
--- NOTE | 2016-06-17 18:44 | NUR ---
BP 105/43 WITH MAP OF 67. WILL CONTINUE TO OBSERVE.
--- NOTE | 2016-06-17 19:40 | NUR ---
REC'D PT ON OXYMIZER @ 11LITERSS RESTING EYES CLOSED, AWAKENS EASILY ORIENTED TO PERSON AND TIME, REORIENTED TO SITUATION, STATES " I FELL", LEFT FOREARM PIV WITH NS @ 50CC/HR, ABD ROUND SOFT, PT DENIES TENDERNESS, HUITRON PATENT DRAINING SALVADOR COLORED URINE, BILAT SCD'S INTACT AND ON, EPIDURAL INFUSING TO BACK @ 4CC/HR WITH 3CC Q15MIN BOLUS AVAILABLE, PT DENIES PAIN AT THIS TIME, PPP, SR UP X 2, VISIBLE TO NURSES STATION.
--- NOTE | 2016-06-17 21:15 | NUR ---
EVENING MEDS GIVEN, PT INCONTINENT OF STOOL, PARTIAL BATH AND LINEN CHANGE PROVIDED, STOOL SAMPLE OBTAINED AND SENT TO LAB, PT REPOSITIONED ONTO RIGHT SIDE SUPPORTED WITH PILLOWS, O2 SAT DECREASED TO 83% WITH TURNING, WILL MONITOR CLOSELY FOR CHANGES.
--- NOTE | 2016-06-17 21:50 | NUR ---
RT AT BS TO PLACE PT ON BIPAP @ 70%, VSS, O2 SAT 94%, BP STABLE.
--- NOTE | 2016-06-17 22:35 | NUR ---
PT YELLING "HELP ME, I CAN'T BREATH IT'S TOO LOUD, TAKE IT OFF", ATTEMPTED TO CALM PT ON BIPAP, REMAINS AGITATED, O2 SAT 94%.
--- NOTE | 2016-06-17 22:45 | NUR ---
PT AGITATED PULLING AT BIPAP, BIPAP REMOVED AND PT PLACED ON OXYMIZER @ 11 LITERS, PT STATES " I WAS GOING TO HAVE A HEART ATTACK IF THAT THING STAYED ON", O2 SAT 89%, EXPLAINED TO PT WE WOULD ATTEMPT TO LEAVE BIPAP OFF.
--- NOTE | 2016-06-17 23:15 | NUR ---
PT CALLING FOR HELP HAD PULLED OXYMIZER OFF, O2 SAT 84%, OXYMIZER REAPPLIED, EXPLAINED TO PT HE MUST LEAVE ON, PT COMPLAINS OF SEVERE LEFT SIDED PAIN WHEN COUGHING, REMINDED PT BROKEN RIBS, EPIDURAL BOLUS BUTTON PUSHED FOR BREAKTHROUGH PAIN, PT ATTEMPTING TO COUGH CONGESTION NOTED, PILLOW PROVIDED FOR SPLINTING WHEN COUGHING, O2 SAT 93%.
[2016-06-18] VITALS (24 sets, daily range): BP systolic 122–180; BP diastolic 55–98
--- NOTE | 2016-06-18 00:43 | NUR ---
PT CONTINUES TO COMPLAIN OF RIB PAIN, EPIDURAL CONTINUES TO INFUSE @ 4CC/HR, NORCO 10/325 GIVEN PO FOR BREAKTHROUGH PAIN, BP 159/69, RT AT BEDSIDE, PT AGREEABLE TO WEAR BIPAP AT THIS TIME.
--- NOTE | 2016-06-18 02:15 | NUR ---
PT ASKING FOR BIPAP TO BE REMOVED, RT AT BS, PT PLACED ON 15 LITER OXYMIZER, REPOSITIONED ONTO BACK, ARMS ELEVATED ON PILLOWS, VSS.
--- NOTE | 2016-06-18 03:40 | NUR ---
RADIOLOGY @ BS FOR AM CXR
[2016-06-18 04:08] LABS: BASOPHILS 0.4 % (0.0-2.0); EOSINOPHILS 2.1 % (0-7); HEMATOCRIT 32.9 % (42.0-54.0); HEMOGLOBIN 10.4 g/dL (13.5-17.5); IMMATURE GRANULOCYTES 5.6 % (0-5); LYMPHOCYTES 16.4 % (15-50); MCH 28.4 pg (26.0-34.0); MCHC 31.6 g/dL (31.0-37.0); MCV 89.9 fL (80.0-100.0); MEAN PLATELET VOLUME 10.4 fL (7.4-10.4); MONOCYTES 8.1 % (2-11); NEUTROPHILS 67.4 % (40-80); PLATELET COUNT 309 10x3/uL (130-400); RBC 3.66 10x6/uL (4.20-6.10); RDW 13.7 % (11.5-14.5)
[2016-06-18 04:27] LABS: % SATURATION 10 % (15-55); IRON 19 ug/dl (35-150); TOTAL IRON BIND CAPACITY 187 ug/dl (260-445); UNSAT IRON BIND CAPACITY 168 ug/dl (150-375)
[2016-06-18 04:36] LABS: ALBUMIN 2.2 g/dL (3.4-5.0); ANION GAP 12.7 mmol/L (8-16); BILIRUBIN - TOTAL 0.5 mg/dL (0.2-1.3); CALCIUM 8.8 mg/dL (8.5-10.1); CARBON DIOXIDE 26.7 mmol/L (21.0-32.0); CREATININE - SERUM 1.3 mg/dL (0.6-1.3); MAGNESIUM - SERUM 1.8 mg/dL (1.8-2.4); PHOSPHOROUS 3.3 mg/dL (2.5-4.9); POTASSIUM - SERUM 3.4 mmol/L (3.5-5.1); PROTEIN - SERUM 6.8 g/dL (6.4-8.2)
--- NOTE | 2016-06-18 05:00 | NUR ---
PT REPOSITIONED UP IN BED AND ONTO LEFT SIDE SUPPORTED WITH PILLOWS.
--- NOTE | 2016-06-18 06:10 | NUR ---
SERUM K 3.4 40MEQ GIVEN PO IN ORANGE JUICE PER ELECTROLYTE PROTOCOL, DOSE TO BE REPEATED IN 4HRS, WILL REPORT TO ONCOMING SHIFT.
--- NOTE | 2016-06-18 07:15 | NUR ---
REPORT RECIEVED FROM MILL MANAGER NURSE. PT RESTING IN BED QUIETLY. RECIEVING O2 VIA OXYMIZER AT 15 LITERS. 02 SAT 92%. ORIENTED TO PERSON AND PLACE ONLY. REORIENTATION PROVIDED. LEFT FOREARM INFUSING NS AT 50CC/HR, ABD SOFT, DENIES TENDERNESS, HUITRON PATENT, DRAINING SALVADOR COLORED URINE, BILAT SCD'S INTACT AND ON, EPIDURAL INFUSING AT 4CC/HR, EPIDUREAL SITE C/D/I. DENIES PAIN AT THIS TIME. STATES HE HAS PAIN WHEN HE COUGHS. WEAK PEDAL PULSES NOTED. CALL LIGHT IN REACH. BED IN LOW POSITION. WILL CONTINUE TO ASSESS.
--- NOTE | 2016-06-18 09:00 | NUR ---
PRODUCTIVE COUGH NOTED POST USE OF IS. CLEAR SECRECTIONS NOTED. PULLING 750 ON IS. WILL CONTINUE TO ENCOURAGE COUGHING AND DEEP BREATHING.
--- NOTE | 2016-06-18 10:00 | NUR ---
PLACED IN CHAIR PER PT. TOLERATED WELL. CALL LIGHT IN REACH. WILL CONT TO ASSESS.
--- NOTE | 2016-06-18 10:10 | NUR ---
Nutrition follow-up: Diet: Regular mechanical soft with thin liquids PO intake ~75% average of meals Labs reviewed RDN following.
--- NOTE | 2016-06-18 11:00 | NUR ---
PT ASSISTED TO BSC WITH HELP OF ANOTHER NURSE. PT HAD DIARRHEA. PERICARE/FOLEYCARE PROVIDED. ASSITED BACK TO CHAIR.
--- NOTE | 2016-06-18 11:45 | NUR ---
LUNCH TRAY PLACED ON BEDSIDE TABLE. PT DENIED FURTHER NEEDS. CALL LIGHT IN REACH.
--- NOTE | 2016-06-18 14:00 | NUR ---
PT REMAINS IN CHAIR. NO ACUTE CHANGES NOTED AT THIS TIME. WILL CONT TO MONITOR.
--- NOTE | 2016-06-18 16:00 | NUR ---
PT ASSISTED TO BSC. DIARRHEA NOTED ONCE AGAIN. SAMPLE TAKEN TO LAB FOR CDT. WILL CONTINUE TO MONITOR.
--- NOTE | 2016-06-18 16:15 | NUR ---
ASSISTED BACK TO BED PER PT. CALL LIGHT PLACED IN REACH.
--- NOTE | 2016-06-18 17:00 | NUR ---
SHERIF CALLED IN REGARDS TO CT GUIDED THORACENTESIS. CONSENTS FILLED OUT AND IN CHART.
--- NOTE | 2016-06-18 19:30 | NUR ---
REPORT REC'D AND CARE ASSUMED, REC'D PT ON O2 VIA 15L OXYMIZER, AWAKENS TO VERBAL STIMULI, PT ORIENTED TO PERSON ONLY AT THIS TIME, REORIENTED EASILY AT THIS TIME, LEFT FOREARM PIV PATENT WITH NS @ 50CC/HR INFUSING, PT DENIES TENDERNESS, PT DENIES PAIN AT THIS TIME, STATES " I AM BETTER TODAY", EPIDURAL INFUSING @ 4CC/HR WITH 3CC Q15MIN BOLUS AVIALABLE FOR BREAKTHROUGH PAIN, RIGHT ARM BRUISE NOTED, HUITRON PATENT DRAINING CONCENTRATED URINE, BILAT SCD'S INTACT AND ON, PP WEAK, GENERALIZED EDEMA, SR UP X 2, VISIBLE TO NURSES STATION.
--- NOTE | 2016-06-18 21:10 | NUR ---
EVENING MEDS GIVEN, PT REPOSITIONED UP IN BED AND ONTO LEFT SIDE SUPPORTED WITH PILLOWS.
--- NOTE | 2016-06-18 21:20 | NUR ---
PT'S NIECE AT BS, UPDATE GIVEN AND QUESTIONS ANSWERED.
--- NOTE | 2016-06-18 23:40 | NUR ---
PT SLEEPING SOUNDLY AT THIS TIME, AWAKENS TO VERBAL STIMULI, REMAINS DISORIENTED TO TIME AND PLACE, PT REMAINS ON 15LITER OXYMIZER, O2 SAT 93%, CRACKLES NOTED TO RIGHT UPPER LOBE, LEFT LUNG DIMINSHED, VSS, WILL CONT TO MONITOR FOR CHANGES.
[2016-06-19] VITALS (23 sets, daily range): BP systolic 123–195; BP diastolic 56–125
--- NOTE | 2016-06-19 00:30 | NUR ---
PT REPOSITIONED IN BED FOR COMFORT, PT HUMMING AND SINGING AT TIMES, DENIES PAIN OR NEEDS, WILL CONT TO MONITOR FOR CHANGES.
--- NOTE | 2016-06-19 03:10 | NUR ---
RADIOLOGY AT BS FOR AM CXR, PT REPOSITIONED UP AND ONTO BACK .
[2016-06-19 05:06] LABS: BASOPHILS 0.3 % (0.0-2.0); EOSINOPHILS 2.3 % (0-7); HEMATOCRIT 34.8 % (42.0-54.0); HEMOGLOBIN 11.2 g/dL (13.5-17.5); IMMATURE GRANULOCYTES 4.3 % (0-5); LYMPHOCYTES 12.6 % (15-50); MCH 28.9 pg (26.0-34.0); MCHC 32.2 g/dL (31.0-37.0); MCV 89.7 fL (80.0-100.0); MEAN PLATELET VOLUME 9.8 fL (7.4-10.4); NEUTROPHILS 74.5 % (40-80); PLATELET COUNT 332 10x3/uL (130-400); RBC 3.88 10x6/uL (4.20-6.10); RDW 13.8 % (11.5-14.5); WBC 14.1 10x3/uL (4.8-10.8)
--- NOTE | 2016-06-19 05:15 | NUR ---
PT INCONTINENT OF STOOL, COMPLETE BATH AND LINEN CHANGE PROVIDED, REPOSITIONED UP IN BED AND ONTO LEFT SIDE SUPPORTED WITH PILLOW, PT'S O2 SAT DECREASED TO 83% WHILE TURNING TAKING LONGER TO RECOVER, WILL MONITOR CLOSELY FOR CHANGES.
[2016-06-19 05:18] LABS: ANION GAP 11.3 mmol/L (8-16); CALCIUM 9.1 mg/dL (8.5-10.1); CARBON DIOXIDE 27.7 mmol/L (21.0-32.0); CREATININE - SERUM 1.1 mg/dL (0.6-1.3); MAGNESIUM - SERUM 1.8 mg/dL (1.8-2.4)
--- NOTE | 2016-06-19 06:00 | NUR ---
PT RESTING EYES CLOSED, O2 SAT 91%, BP IMPROVED SINCE APRESOLINE, NO VISITORS IN AT THIS TIME
--- NOTE | 2016-06-19 07:00 | NUR ---
Received report and assumed care of patient. Pt currently asleep, nebulizer mask currently on patient. 15 L oxymizer also being worn by patient. Rodríguez cath draining clear yellow urine. BP currently reading high. Left forearm PIV with NS @ 50. PAtient to be going to IR with thoracentesis this morning. Consents verified on front of chart. Gabby with IR called and will be taking patient this morning.
--- NOTE | 2016-06-19 08:01 | NUR ---
Gabby with IR through to see patient. Pts epidural and mental status discussed.
--- NOTE | 2016-06-19 08:10 | NUR ---
Patient taken to IR per Aysha with radiology.
[2016-06-19 08:17] LABS: INR 1.18 (0.85-1.17); PROTIME 14.9 SECONDS (11.6-15.0)
--- NOTE | 2016-06-19 09:09 | NUR ---
Patient back from IR. Reconnected to monitors, c.o pain in left side of chest. Epidural ASSOCIATE PROFESSOR OF LITERACY pushed
--- NOTE | 2016-06-19 10:55 | NUR ---
Patients O2 saturation alarming. RT currently at a Rapid Response, pt switched from oxymizer to BIPAP. Pt tolerating well.
--- NOTE | 2016-06-19 11:03 | NUR ---
Patients O2 saturation remains better since being placed on BIPAP. Pt not attempting to remove mask at this time.
[2016-06-19 11:43] LABS: PROTEIN - BODY FLUID 2.8 G/DL
[2016-06-19 12:01] LABS: LYMPH - BF 35 %; MACROPHAGES BF 29 %; MESOTHELIALS BF 12 %; NEUT - BF 24 %
--- NOTE | 2016-06-19 12:15 | NUR ---
through, epidural discontinued. Pt tolerated well.
--- NOTE | 2016-06-19 12:28 | NUR ---
Patients nephew here to see patient. Pts POC discussed. Ny with CM will follow up with nephew.
--- NOTE | 2016-06-19 12:48 | NUR ---
RECEIVED MESSAGE TO CALL PATIENT'S NEPHEWWILBER. [phone]. WE SPOKE ABOUT PATIENT AND HIS NEED FOR A PCP. THEY ARE PLANNING TO TRY TO GET ONE OF THE [facility] PHYSICIANS TO TAKE HIM PCP. HIS NEPHEW HAS QUESTIONS ABOUT REHAB AT SNF AND IF [employer] WILL PAY. I EXPLAINED THE DIFFERENCE IN MANANGED MEDICARE REPLACEMENT AND REGULAR MEDICARE AND THAT [employer] WOULD BE CONTACTED PRIOR TO PLACEMENT FOR PREAUTHORIZATION. HE DOES NOT REALLY UNDERSTAND SO I HAVE TOLD HIM THAT IF PATIENT NEEDS SNF REHAB THE FACILITY WILL GET PREAUTH AND THEY WILL TALK WITH HIM AT THAT TIME. CM TO FOLLOW.
--- NOTE | 2016-06-19 14:39 | NUR ---
Patient up to side of bed with Alfred with PT. Pt tolerating well. L forearm PIV d/c, fluids paused. Will resite.
--- NOTE | 2016-06-19 14:54 | NUR ---
Patient laying back in bed. Oxymizer decreased to 10L per . Will monitor 02 saturation closely.
--- NOTE | 2016-06-19 15:30 | NUR ---
PAtients PIV resited to Left A/C, coban used to secure sites. PIV flushes and draws. PIPE ROLLER and Main fluids restarted.
--- NOTE | 2016-06-19 16:47 | NUR ---
Patient tolerating oxymizer @ 10L. Resting quietly.
--- NOTE | 2016-06-19 18:31 | NUR ---
Breathing treatment per RT. Pt states he has BM.
--- NOTE | 2016-06-19 19:30 | NUR ---
REC'D PT RESTING IN BED, EYES CLOSED, O2 @ 10LITERS VIA OXYMIZER, PT AWAKENS TO VERBAL STIMULI, ORIENTED TO PERSON ONLY AT THIS TIME, REORIENTS EASILY, LEFT A/C PIV WITH NS @ 50CC/HR, ABD SOFT, HUITRON PATENT DRAINING CONCENTRATED URINE, LEFT BACK DRSG CDI FROM PREVIOUS THOARCENTESIS TODAY, PT DENIES NEEDS, DILAUDID AUTOMATION CONTROLS ENGINEER 0.2MG Q10MIN WITH 4MG Q4HR LOCKOUT, SR UP X 2, BED IN LOW POSITION, CALL LIGHT IN REACH, VISIBLE TO NURSES STATION.
--- NOTE | 2016-06-19 21:15 | NUR ---
EVENING MEDS GIVEN, PT REPOSITIONED UP AND ONTO LEFT SIDE SUPPORTED WITH PILLOWS, PT MORE ALERT AT THIS TIME, DENIES PAIN, VSS, NO VISITORS IN AT THIS TIME.
--- NOTE | 2016-06-19 23:05 | NUR ---
REASSESSMENT COMPLETED, PT EASILY AWAKENS, DENIES PAIN AT THIS TIME, BP STABLE, WILL MONITOR FOR CHANGES.
[2016-06-20] VITALS (23 sets, daily range): BP systolic 127–185; BP diastolic 56–93
--- NOTE | 2016-06-20 | NUR ---
ROUTINE EYE DROPS GIVEN ORDRED, ONE DROP APPLIED TO LEFT EYE, PT DENIES NEEDS, SR UP X 2, VISIBLE TO NURSES STATION.
--- NOTE | 2016-06-20 02:00 | NUR ---
PT RESTING EYES CLOSED, RESP EVEN AND UNLABORED, VSS, WILL CONT TO MONITOR
--- NOTE | 2016-06-20 03:50 | NUR ---
RADIOLOGY @ BS FOR AM CXR.
--- NOTE | 2016-06-20 04:15 | NUR ---
LAB AT FOR AM LAB DRAW
[2016-06-20 04:56] LABS: BASOPHILS 0.3 % (0.0-2.0); EOSINOPHILS 1.6 % (0-7); HEMATOCRIT 35.4 % (42.0-54.0); HEMOGLOBIN 11.4 g/dL (13.5-17.5); IMMATURE GRANULOCYTES 2.8 % (0-5); LYMPHOCYTES 12.9 % (15-50); MCHC 32.2 g/dL (31.0-37.0); MCV 90.1 fL (80.0-100.0); MONOCYTES 5.7 % (2-11); NEUTROPHILS 76.7 % (40-80); PLATELET COUNT 396 10x3/uL (130-400); RBC 3.93 10x6/uL (4.20-6.10); RDW 13.9 % (11.5-14.5); WBC 13.5 10x3/uL (4.8-10.8)
[2016-06-20 05:39] LABS: CARBON DIOXIDE 25.8 mmol/L (21.0-32.0); CREATININE - SERUM 1.1 mg/dL (0.6-1.3); MAGNESIUM - SERUM 1.8 mg/dL (1.8-2.4); POTASSIUM - SERUM 3.8 mmol/L (3.5-5.1)
--- NOTE | 2016-06-20 05:40 | NUR ---
PT REPOSITIONED UP IN BED, PT DIAPHORETIC, BLANKET REMOVED, PT POSITIONED ONTO RIGHT SIDE SUPPORTED WITH PILLOW, PT STATES "IT HURTS", DILAUDID DRY JANITOR IN USE, BP ELEVATED 185/58, WILL MONITOR CLOSELY FOR CHANGES.
--- NOTE | 2016-06-20 06:00 | NUR ---
NO VISITORS IN AT THIS TIME
--- NOTE | 2016-06-20 07:15 | NUR ---
RECIEVED REPORT FROM ANIMAL SHELTER WORKER NURSE. PT RESTING IN BED QUIELTY. RECIEVING O2 AT 10L OXYMIZER. AA0 TO SELF AND SITUATION. ASSESSMENT COMPLETE PER FLOWSHEET. DENIES NEEDS AT THIS TIME. WILL CONTINUE TO ASSESS. CALL LIGHT IN REACH. BED IN LOW POSITION. ASSESSMENT COMPLETE PER FLOWSHEET.
--- NOTE | 2016-06-20 08:00 | NUR ---
BATH AND TOTAL LINEN CHANGE PROVIDED POST INCONTINENT EPISODE OF STOOL. TURNED AND REPOSITIONED FOR COMFORT.
--- NOTE | 2016-06-20 09:55 | NUR ---
Nutrition follow-up: Diet: regualr mechanical soft with thin liquids Ensure with meals PO intake ~50% of meals Labs reviewed s/p thoracentesis 06/19 Wt: 227# RDN following.
--- NOTE | 2016-06-20 10:15 | NUR ---
PT TRANSFERED TO CHAIR PER PT. TOLERATED WELL.
--- NOTE | 2016-06-20 12:00 | NUR ---
PT ATE 50% OF LUNCH WITH MINIMAL ASSIST.
[2016-06-20 14:22] LABS: FUNGUS STAIN Final report (())
--- NOTE | 2016-06-20 15:00 | NUR ---
PT AT BEDSIDE TO ASSIST PT BACK TO BED. PT REFUSED. STATED HE WANTED TO STAY IN CHAIR. WILL ASSIST BACK TO BED WHEN READY.
[2016-06-20 15:23] LABS: AFB SPECIMEN PROCESSING Concentration (())
--- NOTE | 2016-06-20 17:00 | NUR ---
REFUSED DINNER. STATED HE ONLY WANTED TO DRINK HIS ENSURE AND EAT SOME JELLO.
--- NOTE | 2016-06-20 19:00 | NUR ---
ASSISTED BACK TO BED WITH ASSIST OF NURSE. TOLERATED WELL.
--- NOTE | 2016-06-20 19:00 | NUR ---
REPORT RECIEVED, INITIAL ASSESSMENT COMPLETE, PLEASE SEE FLOW SHEETS FOR DETAILS. COMPLAINS OF PAIN ON LEFT RIB AREA AND BUTTOCKS 01/20, INFORMED HIM HE CAN USE HIS [place]URA TUAR[place] WHEN NEEDED, HE VERBALIZED UNDERSTANDING. PT ALERT AND ORIENTED X2, DISORIENTED TO PLACE AND TIME. REORIENTED AT THIS TIME. BED LOW AND LOCKED, CALL LIGHT IN REACH. VSS ATT, WILL CONTINUE TO MONITOR.
--- NOTE | 2016-06-20 21:00 | NUR ---
PT RESTING IN BED, PROVIDED POSITION CHANGE TO BACK. SAYS PAIN TOLERABLE ATT. DENIES ANY NEEDS. BED LOW AND LOCKED, CALL LIGHT IN REACH, WILL CONTINUE TO MONITOR.
--- NOTE | 2016-06-20 23:00 | NUR ---
REASSESSMENT COMPLETE, PLEASE SEE FLOW SHEETS FOR DETAILS. NO CHANGES NOTED. PT PULLED UP AND REPOSITIONED IN BED. DENIES PAIN/NEEDS ATT, VSS, WILL CONTINUE TO MONITOR.
[2016-06-21] VITALS (24 sets, daily range): BP systolic 120–198; BP diastolic 58–94
--- NOTE | 2016-06-21 01:00 | NUR ---
TURNING PROVIDED. DENIES PAIN/NEEDS AT THIS TIME, WOULD LIKE TO GO BACK TO SLEEP AND DOES SO QUICKLY. NO S&S OF ACUTE DISTRESS NOTED, RR EVEN AND UNLABORED, VSS, WILL CONTINUE TO MONTIOR.
--- NOTE | 2016-06-21 03:00 | NUR ---
REASSESSMENT COMPLETE, PLEASE SEE FLOW SHEETS FOR DETAILS. PT DISORIENTED TO PLACE AND TIME STILL. DENIES PAIN/NEEDS AT THIS TIME. VSS, WILL CONTINUE TO MONITOR.
[2016-06-21 03:27] LABS: BASOPHILS 0.2 % (0.0-2.0); EOSINOPHILS 1.8 % (0-7); HEMATOCRIT 34.3 % (42.0-54.0); HEMOGLOBIN 10.9 g/dL (13.5-17.5); IMMATURE GRANULOCYTES 1.6 % (0-5); LYMPHOCYTES 10.9 % (15-50); MCH 28.5 pg (26.0-34.0); MCHC 31.8 g/dL (31.0-37.0); MCV 89.8 fL (80.0-100.0); MEAN PLATELET VOLUME 9.5 fL (7.4-10.4); NEUTROPHILS 79.5 % (40-80); PLATELET COUNT 386 10x3/uL (130-400); RBC 3.82 10x6/uL (4.20-6.10); RDW 13.8 % (11.5-14.5); WBC 14.1 10x3/uL (4.8-10.8)
[2016-06-21 03:33] LABS: CALC OSMOLALITY 281 mosm/kg (275-300); CALCIUM 8.6 mg/dL (8.5-10.1); CARBON DIOXIDE 28.6 mmol/L (21.0-32.0); CHLORIDE - SERUM 102 mmol/L (98-107); GLUCOSE 167 mg/dL (74-106); POTASSIUM - SERUM 3.6 mmol/L (3.5-5.1); SODIUM 138 mmol/L (136-145); UREA NITROGEN 19 mg/dL (7-18); eGFR NON AFRICAN AMERICAN 75 mL/min (90-120)
[2016-06-21 03:47] LABS: MAGNESIUM - SERUM 2.2 mg/dL (1.8-2.4)
--- NOTE | 2016-06-21 05:00 | NUR ---
PT SLEEPING, NO S&S OF ACUTE DISTRESS NOTED, BP ELEVATED WILL GIVE APRESOLINE ORDERED. BREATHING SHALLOW. NSR NOTED. BED LOW AND LOCKED, CALL LIGHT IN REACH, WILL CONTINUE TO MONITOR.
--- NOTE | 2016-06-21 07:15 | NUR ---
REPORT RECIEVED FROM REAL ESTATE TRANSACTION MANAGER NURSE. PT RESTING IN BED QUIETLY. RECIEVING O2 AT 10L VIA OXYMIZER. O2 SAT 94% DENIES NEEDS AT THIS TIME. ASSESSMENT COMPLETE PER FLOWSHEET. WILL CONT TO MONITOR FOR CHANGES. CALL LIGHT IN REACH. BED IN LOW POSITION. BED ALARM ON.
--- NOTE | 2016-06-21 09:45 | NUR ---
ASSISTED TO RECLINER PER PT. TOLERATED WELL. TOTAL LINEN CHANGE PROVIDED. CALL LIGHT PLACED IN REACH. WILL CONT TO MONITOR.
--- NOTE | 2016-06-21 11:15 | NUR ---
LUNCH TRAY SET UP ON BEDSIDE TABLE. NO ASSISTANCE REQUIRED. WILL ASSESS INTAKE.
--- NOTE | 2016-06-21 13:06 | NUR ---
Rehab Prescreening Consult recieved and the chart has been reviewed. He has [employer] managed MCR that will require a preauth. A PT/OT eval will need to be completed prior to submitting information for their review. Leticia Gaming RN Clinical Liaison, Rehab
--- NOTE | 2016-06-21 13:37 | NUR ---
SPEECH THERAPY AND OCCUPATIONAL THERAPY AT BEDSIDE.
--- NOTE | 2016-06-21 14:30 | NUR ---
PT AT BEDSIDE. PT STATED HE WOULD LIKE TO REMAIN IN RECLINER. WILL ASSIST TO BED ONCE READY.
--- NOTE | 2016-06-21 18:00 | NUR ---
REMAINS IN CHAIR. O2 WEANED DOWN TO 5LNC PER RT. PT TOLERATING WELL. WILL CONT TO ASSESS.
--- NOTE | 2016-06-21 19:00 | NUR ---
REPORT REC'D, ASSUMED PATIENT CARE. ASSESSMENT COMPLETED PER FLOW SHEETS. PT SITTING IN CHAIR AT THIS TIME, DENIES ANY DISCOMFORT, CONFUSED WITH TIME. REORIENTED. ST ON CM WITH HR TO 104. LUNG SOUNDS WHEEZING WITH EXPIRATION TO ULB, DIMINISHED TO LLB, UNLABORED. O2 SAT 96% ON 6L OXIMYZER. LEFT PIV INTACT, CLEAN AND DRY INFUSING IV FLUIDS PER ORDER VIA PUMP. HUITRON INTACT TO GRAVITY WITH CL/YELLOW DRAINAGE TO BAG. PPP. BEDSIDE TABLE AND CALL LIGHT IN REACH. WILL CONT TO MONITOR.
--- NOTE | 2016-06-21 21:00 | NUR ---
ASSITED TO BED, PT MARTINE WELL. REPOSITIONED FOR COMFORT. FAMILY AT BEDSIDE, UPDATED.
--- NOTE | 2016-06-21 23:00 | NUR ---
REASSESSMENT COMPLETED PER FLOW SHEETS. PT AROUSES EASILY WITH VOICES, NO SIGNS OF DISTRESS NOTED AT THIS TIME. VSS. NO NEEDS VOICES. CALL LIGHT IN REACH, CPOC.
[2016-06-22] VITALS (15 sets, daily range): BP systolic 104–188; BP diastolic 45–98
--- NOTE | 2016-06-22 00:30 | NUR ---
CARE ASSUMED...PT RESTING WITH NO DISTRESS. VSS. NO NEEDS VOICED. CONT CURRENT POC.
--- NOTE | 2016-06-22 01:18 | NUR ---
PRN APRESOLINE ADM FOR BP 188/108. NEEDS MET. WILL REASSES.
--- NOTE | 2016-06-22 02:06 | NUR ---
PRN APRESOLINE EFFECTIVE...149/59
--- NOTE | 2016-06-22 03:20 | NUR ---
REASESSMENT COMPLETED. SEE FLOWSHEET FOR ALL FINDINGS. RESTING WITH NO DISTRESS. AOX4. RESP UNLABORED. SCANT EXP WHEEZES THRU OUT UPPER LOBES. SPO2 97% ON O2 AT 4 LPM NC. SR-ST ON THE MONITOR. AFEBRILE. ABD SOFT, BSA X4. F/C PATENT WITH CLR YELLOW UOP. DENIES DISCOMFORT. HOB UP. C/L IN REACH. CONT CURRENT POC.
[2016-06-22 04:00] LABS: BASOPHILS 0.3 % (0.0-2.0); EOSINOPHILS 1.7 % (0-7); HEMATOCRIT 35.6 % (42.0-54.0); HEMOGLOBIN 11.3 g/dL (13.5-17.5); IMMATURE GRANULOCYTES 1.7 % (0-5); MCH 28.5 pg (26.0-34.0); MCHC 31.7 g/dL (31.0-37.0); MCV 89.9 fL (80.0-100.0); MEAN PLATELET VOLUME 9.7 fL (7.4-10.4); MONOCYTES 5.7 % (2-11); NEUTROPHILS 79.6 % (40-80); PLATELET COUNT 435 10x3/uL (130-400); RBC 3.96 10x6/uL (4.20-6.10); RDW 13.9 % (11.5-14.5); WBC 14.3 10x3/uL (4.8-10.8)
[2016-06-22 04:14] LABS: CALC OSMOLALITY 284 mosm/kg (275-300); CARBON DIOXIDE 27.4 mmol/L (21.0-32.0); CHLORIDE - SERUM 102 mmol/L (98-107); GLUCOSE 180 mg/dL (74-106); MAGNESIUM - SERUM 1.7 mg/dL (1.8-2.4); POTASSIUM - SERUM 3.5 mmol/L (3.5-5.1); SODIUM 139 mmol/L (136-145); UREA NITROGEN 18 mg/dL (7-18); eGFR NON AFRICAN AMERICAN 75 mL/min (90-120)
--- NOTE | 2016-06-22 04:44 | NUR ---
PER ELECTROLYTE PROTOCOL, MAG AND K+ LEVELS TREATED PO. NO DISTRESS. POSITIONED FOR COMFORT. VSS. CONT CURRENT POC.
--- NOTE | 2016-06-22 05:29 | NUR ---
REPOSITIONED IN BED. VSS. NO NEEDS VOICED. CONT POC.
--- NOTE | 2016-06-22 07:15 | NUR ---
REPORT RECIEVED FROM COPING MACHINE OPERATOR NURSE. PT RESTING IN BED QUIETLY. NO S/SX OF ACUTE DISTRESS NOTED AT THIS TIME. RECIEVING 02 AT 4L O2 SAT 98%. ASSESSMENT COMPLETE PER FLOWSHEET. CALL LIGHT IN REACH. BED IN LOW POSITION. WILL CONT TO ASSESS FOR CHANGES.
--- NOTE | 2016-06-22 09:15 | NUR ---
ASSITED TO CHAIR PER RT. INCONTINENT CARE PROVIDED. WATERY STOOL NOTED WHEN ASSISTING PT TO CHAIR. PT STATED," HE DIDN'T KNOW IT WAS COMING". MAX ASSIST NEEDED WHEN MOVING. CALL LIGHT IN REACH. WILL CONT TO ASSESS.
--- NOTE | 2016-06-22 10:42 | NUR ---
Nutrition Follow Up: Pt reported that he felt better and his appetite seemed to be improving. He stated that he likes Ensure and has been drinking it. Pt is eating 55% meal avg on a Regular [facility] Soft diet; Ensure TID. +BM 06/20/16. I<O. Wt gain of 3# since admit. Labs noted - Glucose elevated. Meds noted including NS @ 50 ml/hr, Lantus, Dopamine, Humalog and Zofran. Pt with fair po intake at this time. Rec continue current diet, supplement regimen. RD following.
--- NOTE | 2016-06-22 12:30 | NUR ---
ATE 25% OF LUNCH TRAY. DRANK 100% OF THE ENSURE. STATED HE WASN'T TO HUNGRY. FRESH ICE WATER PLACED IN REACH.
--- NOTE | 2016-06-22 13:00 | NUR ---
REPORT GIVEN TO ЕЛЕНА FINNEY ON MED SURG. WILL TRANSFER VIA W/C WITH ASSIST.
--- NOTE | 2016-06-22 13:15 | NUR ---
REPORT RECEIVED FROM ЕЛЕНА IBARRA IN ICU AT THIS TIME. WILL CONTINUE WITH PLAN OF CARE ONCE PT IS TRANSFERRED TO 2200.
--- NOTE | 2016-06-22 14:30 | NUR ---
RECEIVED TO ROOM 2201 AT THIS TIME FROM ICU VIA WHEELCHAIR. ALERT AND ORIENTED. RESPIRATIONS EVEN AND NON LABORED. OXYGEN ON 4L VIA NC. CALL LIGHT IN REACH, ORIENTED TO ROOM. WILL CONTINUE WITH PLAN OF CARE.
--- NOTE | 2016-06-22 17:06 | NUR ---
OT NOTE: PT COMPLETED BUE AAROM FOR INCREASED ACTIVITY TOLERANCE . PT COMPLETED GROOMING TASK WITH SETUP. THANK YOU, SIOBHAN MANN/Morgan
--- NOTE | 2016-06-22 19:20 | NUR ---
RECIEVED PT LYING IN BED WITH EYES CLOSED, EASILY AROUSED, ASSESSMENT COMPLETED, NO ACUTE DISTRESS NOTED, DENIES PAIN OR DISCOMFORT, SAFETY MEASURES IN PLACE, CL IN REACH, DOOR OPEN FOR EASY MONITORING
--- NOTE | 2016-06-22 20:52 | NUR ---
MEDS GIVEN PER MAR, MARTINE WELL, NO DISTRESS NOTED, FALL PRECAUTIONS IN PLACE, CL IN REACH
--- NOTE | 2016-06-22 23:40 | NUR ---
PRN ZOFRAN GIVEN PER JUL FOR NAUSEA WITH EMESIS, MARTINE WELL, WILL MONITOR
[2016-06-23] VITALS (7 sets, daily range): BP systolic 122–192; BP diastolic 57–73
[2016-06-23 04:52] LABS: BASOPHILS 0.2 % (0.0-2.0); HEMATOCRIT 32.8 % (42.0-54.0); HEMOGLOBIN 10.5 g/dL (13.5-17.5); IMMATURE GRANULOCYTES 1.8 % (0-5); MCH 28.9 pg (26.0-34.0); MCV 90.4 fL (80.0-100.0); MEAN PLATELET VOLUME 9.7 fL (7.4-10.4); MONOCYTES 5.8 % (2-11); NEUTROPHILS 80.2 % (40-80); PLATELET COUNT 459 10x3/uL (130-400); RBC 3.63 10x6/uL (4.20-6.10); RDW 14.1 % (11.5-14.5)
[2016-06-23 05:10] LABS: CALC OSMOLALITY 284 mosm/kg (275-300); CALCIUM 8.7 mg/dL (8.5-10.1); CARBON DIOXIDE 30.9 mmol/L (21.0-32.0); CHLORIDE - SERUM 102 mmol/L (98-107); GLUCOSE 209 mg/dL (74-106); MAGNESIUM - SERUM 1.8 mg/dL (1.8-2.4); POTASSIUM - SERUM 4.1 mmol/L (3.5-5.1); SODIUM 138 mmol/L (136-145); UREA NITROGEN 21 mg/dL (7-18); eGFR NON AFRICAN AMERICAN 75 mL/min (90-120)
--- NOTE | 2016-06-23 07:20 | NUR ---
IV INFILTRATED; IV REMOVED WITH CATHETER IN TACT AND PLACED IN SHARPS. WARM COMPRESS PLACED ON INFILTRATED SITE
--- NOTE | 2016-06-23 07:20 | NUR ---
RECIEVED PATIENT DURING WALKING ROUNDS. PATIENT LYING IN BED WITH EVEN RESPRIATIONS. EYES CLOSED. ASSESSMENT DONE PER FLOWSHEET. BED IN LOW POSITION AND CALL LIGHT WITHIN REACH. WILL CONTINUE TO MONITOR. NO SIGNS OF DISTRESS.
--- NOTE | 2016-06-23 07:39 | NUR ---
PATIENT RESTING QUIETLY WITH EYES CLOSED. PATIENT WEARING OXYGEN VIA NASAL CANNULA AT 4L/MIN. BED IN LOWEST POSITION, CALL LIGHT IN REACH. BED RAILS UP X'S 2. HOB 40 DEGREES. IV TO LEFT AC INFUSING NS AT 50ML/HR. DILAUDID CORPORATE LEGAL SECRETARY 0.2MG/10MIN/4MG LOCKOUT FOR 4 HOURS. HUITRON CATHETER DRAINING TO GRAVITY. SCDS TO BILATERAL LEGS. NO SIGNS OF DISTRESS NOTED. DOOR IS OPEN.
--- NOTE | 2016-06-23 13:27 | NUR ---
VERY SLEEPY AND LETHARGIC, BUT EASILY AROUSABLE. WILL CONTINUE TO MONITOR.
--- NOTE | 2016-06-23 16:04 | NUR ---
FREQUENTLY DROWSEY ALL DAY TODAY; PHYSICAL STIMULI TO WAKE UP AND FALLS BACK TO SLEEP DURING CONVERSATION.
--- NOTE | 2016-06-23 18:39 | NUR ---
AROUSES TO PHYSICAL STIMULI; HAS BEEN ASLEEP ALL DAY. NO OTHER CHANGING SINCE INITAL SHIFT ASSESSMENT.
--- NOTE | 2016-06-23 19:40 | NUR ---
REC'D PT IN BED RESTING AT THIS TIME WITH EYES CLOSED EASILY TO AROUSED WHEN NAME IS CALLED. RESP EVEN AND UNLABORED WITH NO DISTRESS NOTED. HAS O2 IN USE VIA N/C @ 5 L/M. ASSESSMENT COMPLETED AT THIS TIME. WILL CONTINUE TO OBSERVE. C/L IN REACH AT BEDSIDE
[2016-06-24] VITALS: BP 152/76
--- NOTE | 2016-06-24 01:11 | NUR ---
RESTING WITH EYES CLOSED, HUITRON DRAINING TO GRAVITY, NC IN PLACE, NO DISTRESS NOTED, FALL PRECAUTIONS IN PLACE, CL IN REACH
[2016-06-24 04:00] VITALS: BP 151/65
[2016-06-24 05:31] LABS: BASOPHILS 0.3 % (0.0-2.0); EOSINOPHILS 0.9 % (0-7); HEMATOCRIT 32.5 % (42.0-54.0); HEMOGLOBIN 10.2 g/dL (13.5-17.5); LYMPHOCYTES 9.5 % (15-50); MCH 28.7 pg (26.0-34.0); MCHC 31.4 g/dL (31.0-37.0); MCV 91.3 fL (80.0-100.0); MEAN PLATELET VOLUME 9.9 fL (7.4-10.4); MONOCYTES 5.8 % (2-11); NEUTROPHILS 82.5 % (40-80); PLATELET COUNT 441 10x3/uL (130-400); RBC 3.56 10x6/uL (4.20-6.10); WBC 13.8 10x3/uL (4.8-10.8)
[2016-06-24 05:45] LABS: CALC OSMOLALITY 284 mosm/kg (275-300); CALCIUM 8.5 mg/dL (8.5-10.1); CARBON DIOXIDE 32.6 mmol/L (21.0-32.0); CHLORIDE - SERUM 99 mmol/L (98-107); CREATININE - SERUM 0.9 mg/dL (0.6-1.3); GLUCOSE 191 mg/dL (74-106); POTASSIUM - SERUM 3.5 mmol/L (3.5-5.1); SODIUM 140 mmol/L (136-145); eGFR NON AFRICAN AMERICAN 84 mL/min (90-120)
[2016-06-24 05:47] LABS: UREA NITROGEN 15 mg/dL (7-18)
--- NOTE | 2016-06-24 07:00 | NUR ---
REPORT RECIEVED ASSUMED CARE. PATIENT IN BED WITH IV INTACT. NO COMPLAINTS. CALL LIGHT WITHIN REACH.
--- NOTE | 2016-06-24 08:00 | NUR ---
IV OUT. CATH TIP INTACT. NO COMPLAINTS AT THIS TIME. ASSESSMENT COMPLETE, VS STABLE. PATIENT OUT OF BED WITH PT TO CHAIR. BOUDREUXS APPLIED TO RASH ON BUTTOCKS. NO OTHER PROBLEMS AT THIS TIME. CALL LIGHT WITHIN REACH.
[2016-06-24 08:03] VITALS: BP 130/57
--- NOTE | 2016-06-24 10:20 | NUR ---
PATIENT IV RESTARTED ON RIGHT AC AT THIS TIME. TOLERATED WITH SMALL AMOUNT OF PAIN. SITTING UP IN CHAIR WITH NO COMPLAINTS. CALL LIGHT WITHIN REACH.
[2016-06-24 11:11] VITALS: BP 132/56
--- NOTE | 2016-06-24 14:00 | NUR ---
PATIENT BACK TO BED ASSISTED BY PT. NO COMPLAINTS AT THIS TIME. IV INTACT. CALL LIGHT WITHIN REACH.
--- NOTE | 2016-06-24 16:10 | NUR ---
PATIENT IN BED WITH NO COMPLAINTS. LAYING ON SIDE WITH IV INTACT. IVF DC'D PER ORDER. VAULT CUSTODIAN DC'D PER ORDER. CALL LIGHT WITHIN REACH.
[2016-06-24 16:22] VITALS: BP 132/57
--- NOTE | 2016-06-24 19:30 | NUR ---
REC'D IN BED AWAKE AND ALERT TO SELF. RESP EVEN AND UNALBORED WITH NO DISTRESS NOTED. HAS O2 IN USE VIA N/C. NO C/O NOTED OR VOICED. ASSESSMENT COMPLETED. C/L IN REACH AT BEDSIDE.
[2016-06-24 20:00] VITALS: BP 170/67
[2016-06-25] VITALS (7 sets, daily range): BP systolic 125–155; BP diastolic 53–71
--- NOTE | 2016-06-25 | NUR ---
EYES CLOSED RESPIRATIONS WITH EASE AND UNLABORED. SR UP X2 CALL LIGHT WITHIN REACH.
[2016-06-25 05:00] LABS: BASOPHILS 0.3 % (0.0-2.0); EOSINOPHILS 0.8 % (0-7); HEMATOCRIT 32.4 % (42.0-54.0); HEMOGLOBIN 10.1 g/dL (13.5-17.5); IMMATURE GRANULOCYTES 0.9 % (0-5); LYMPHOCYTES 10.4 % (15-50); MCH 28.5 pg (26.0-34.0); MCHC 31.2 g/dL (31.0-37.0); MCV 91.5 fL (80.0-100.0); MEAN PLATELET VOLUME 9.9 fL (7.4-10.4); MONOCYTES 7.3 % (2-11); NEUTROPHILS 80.3 % (40-80); PLATELET COUNT 427 10x3/uL (130-400); RBC 3.54 10x6/uL (4.20-6.10); RDW 13.9 % (11.5-14.5); WBC 14.2 10x3/uL (4.8-10.8)
[2016-06-25 05:32] LABS: ANION GAP 8.4 mmol/L (8-16); CALCIUM 8.1 mg/dL (8.5-10.1); CREATININE - SERUM 1.1 mg/dL (0.6-1.3); POTASSIUM - SERUM 3.4 mmol/L (3.5-5.1)
--- NOTE | 2016-06-25 07:40 | NUR ---
AWAKE ALERT COLOR ADQ SKIN WARM AND DRY RESP EVEN AND UNLABORED AT PRESENT SCDS IN PLACE AT PRESENT.
--- NOTE | 2016-06-25 08:00 | NUR ---
PT ASSESSMENT COMPLETE NO ACUTE DISTRESS NOTED VOICES ALL NEEDS TO STAFF PT IS CONFUSED AT TIMES ALL ADLS PER STAFF ASSIST. PT UP WITH ASSIST PER P.T. DRESSING NOTED TO LEFT MID BACK
--- NOTE | 2016-06-25 10:54 | NUR ---
Faxed an update to [facility] this AM per their request. It is doubtful they will approve based on the PT notes. PT documented on 06/23 that his therapy was held. On 06/24 they documented he walked a few feet to the chair. Per the clinical reviewer Noemy at [facility] this is not an acceptable note to describe a patient's functional decline or capabilities. The [facility] will be made aware. Leticia Gaming RN Clinical Liaison, Rehab
--- NOTE | 2016-06-25 12:00 | NUR ---
NUTRITION MONITORING & EVAL CHART REVIEWED. PT VISIT. TOLERATING REG MECH SOFT DIET. 100% INTAKE BREAKFAST. ENSURE WITH MEALS. RD FOLLOWING
--- NOTE | 2016-06-25 14:43 | NUR ---
PT WITH NO DISTRESS NTOED SITTING UP IN CHAIR AT BEDSIDE.
--- NOTE | 2016-06-25 15:11 | NUR ---
Recieved a call from Noemy at [facility]. This patient has been denied for acute inpatient rehab. Called the [facility] with this information. Leticia Gaming RN Clinical Liaison, rehab
--- NOTE | 2016-06-25 17:22 | NUR ---
OT NOTE: PT COMPLETED SITTING BALANCE AXS WITH SBA/CGA. PT COMPLETED BUE AROM IN ALL PLANES WHILE SEATED. PT COMPLETED ORAL CARE AND GROOMING WITH SET UP. THANK YOU, SIOBHAN MANN/Morgan
--- NOTE | 2016-06-26 02:00 | NUR ---
PT IN BED WITH RESPIRATIONS EVEN AND UNLABORED. NO DISTRESS IS NOTED. SIDE RAILS X 2. BED IS LOW. CALL LIGHT IN REACH.
[2016-06-26 05:42] LABS: BASOPHILS 0.3 % (0.0-2.0); EOSINOPHILS 1.6 % (0-7); HEMATOCRIT 31.4 % (42.0-54.0); HEMOGLOBIN 9.9 g/dL (13.5-17.5); LYMPHOCYTES 17.5 % (15-50); MCH 28.9 pg (26.0-34.0); MCHC 31.5 g/dL (31.0-37.0); MCV 91.5 fL (80.0-100.0); MEAN PLATELET VOLUME 9.7 fL (7.4-10.4); MONOCYTES 7.7 % (2-11); NEUTROPHILS 71.9 % (40-80); PLATELET COUNT 466 10x3/uL (130-400); RBC 3.43 10x6/uL (4.20-6.10); RDW 14.1 % (11.5-14.5); WBC 11.5 10x3/uL (4.8-10.8)
[2016-06-26 05:56] LABS: ANION GAP 7.1 mmol/L (8-16); CALCIUM 8.8 mg/dL (8.5-10.1); CARBON DIOXIDE 36.1 mmol/L (21.0-32.0); CREATININE - SERUM 1.1 mg/dL (0.6-1.3); MAGNESIUM - SERUM 1.9 mg/dL (1.8-2.4); PHOSPHOROUS 3.3 mg/dL (2.5-4.9); POTASSIUM - SERUM 3.2 mmol/L (3.5-5.1)
[2016-06-26 08:12] VITALS: BP 142/60
--- NOTE | 2016-06-26 08:19 | NUR ---
PT ASSESSMENT COMPLETE AWAKE AND ALERT ORINETD TO NAME ONLY VOICES NEEDS TO STAFF HAS DRESSING TO LEFT MIDDLE BACK LUNGS CLEAR WITH EXPIRATORY WHEEZING NOTED BSA X 4 O2 5 LPM OXYMIZER WILL MONITOR,
--- NOTE | 2016-06-26 10:16 | NUR ---
PATIENT ALERT IN HIGH [place] POSITION. RESPIRATIONS EVEN AND UNLABORED. SIDE RAILS UP X2. BED IN LOW POSITION. CALL LIGHT IN REACH.
[2016-06-26 12:06] VITALS: BP 160/67
[2016-06-26 17:31] VITALS: BP 140/76
[2016-06-26 20:00] VITALS: BP 102/46
--- NOTE | 2016-06-26 20:04 | NUR ---
OT NOTE: PT COMPLETED SELF FEEDING TASK WITH SET UP. PT COMPLETED BED MOB WITH MOD A. PT COMPLETED BUE STRENGTHENING EXS FOR INCREASED ENDURANCE WITH ADLS. THANK YOU, SIOBHAN MANN/Giuliana
--- NOTE | 2016-06-26 23:15 | NUR ---
RESTING WITH EYES CLOSED, RESP WITH EASE, NO ACUTE DISTRESS NOTED, FALL PRECAUTIONS IN PLACE, CL IN REACH
[2016-06-27] VITALS: BP 160/70
--- NOTE | 2016-06-27 00:35 | NUR ---
CARE ASSUMED AT THIS TIME. REPORT FROM ELIDIA GUADALUPE. PT RESTING QUIETLY, BREATHING EVEN AND UNLABOURED ON 4LNC. EYES CLOSED. BED IN LOWEST POSITION, CALL LIGHT IN REACH, ASSESSMENT PER FLOWSHEET. WILL CONTINUE TO MONITOR.
--- NOTE | 2016-06-27 03:49 | NUR ---
PT BATHED, LINEN AND GOWN CHANGED AT THIS TIME. REPOSITIONED FOR COMFORT, PT DENIES ANY NEEDS. CALL LIGHT IN REACH, WILL CONTINUE TO MONITOR.
[2016-06-27 04:00] VITALS: BP 144/69
[2016-06-27 05:50] LABS: BASOPHILS 0.5 % (0.0-2.0); EOSINOPHILS 1.8 % (0-7); HEMATOCRIT 33.8 % (42.0-54.0); HEMOGLOBIN 10.4 g/dL (13.5-17.5); IMMATURE GRANULOCYTES 0.9 % (0-5); LYMPHOCYTES 15.2 % (15-50); MCH 28.3 pg (26.0-34.0); MCHC 30.8 g/dL (31.0-37.0); MCV 91.8 fL (80.0-100.0); MEAN PLATELET VOLUME 9.5 fL (7.4-10.4); MONOCYTES 6.3 % (2-11); NEUTROPHILS 75.3 % (40-80); PLATELET COUNT 439 10x3/uL (130-400); RBC 3.68 10x6/uL (4.20-6.10); RDW 14.1 % (11.5-14.5); WBC 10.4 10x3/uL (4.8-10.8)
--- NOTE | 2016-06-27 05:51 | NUR ---
CXR CHANGED TO PCXR DUE TO PATIENT TO WEAK
[2016-06-27 06:09] LABS: CALC OSMOLALITY 287 mosm/kg (275-300); CALCIUM 8.2 mg/dL (8.5-10.1); CARBON DIOXIDE 35.5 mmol/L (21.0-32.0); CHLORIDE - SERUM 102 mmol/L (98-107); GLUCOSE 162 mg/dL (74-106); SODIUM 142 mmol/L (136-145); UREA NITROGEN 16 mg/dL (7-18); eGFR NON AFRICAN AMERICAN 75 mL/min (90-120)
--- NOTE | 2016-06-27 07:00 | NUR ---
REPORT RECIEVED ASSUMED CARE. PATIENTIN BED WITH IV INTACT. NO COMPLAINTS AT THIS TIME. CALL LIGHT WITHIN REACH.
[2016-06-27 08:18] VITALS: BP 155/81
--- NOTE | 2016-06-27 08:30 | NUR ---
PATIENT SITTING UP IN BED EATING BREAKFAST. NO COMPLAINTS OR SIGNS OF DISTRESS. CALL LIGHT WITHIN REACH.
--- NOTE | 2016-06-27 10:47 | NUR ---
06/27/2016 10:45 DCP: Discharge Planning Clinical update faxed to [facility] N[facility]ez. Waiting determination. CM will follow.
[2016-06-27 11:41] VITALS: BP 127/52
--- NOTE | 2016-06-27 13:28 | NUR ---
OT NOTE: PT REPORTED FEELING MUCH BETTER TODAY. PERFORMED SIT TO STAND EXS WITH MIN/CGA. STILL REPORTS PAIN IN L SIDE SECONDARY TO RIB FXS. PERFORMED 1 SET OF UE AROM EXS WITHOUT DIFFICULTY
--- NOTE | 2016-06-27 13:40 | NUR ---
PATIENT ASSISTED TO [facility] [place] [facility] ASSIST. NO COMPLAINTS OR PROBLEMS. IV INTACT. CALL LIGHT WITHIN REACH.
--- NOTE | 2016-06-27 15:45 | NUR ---
PATIENT IN BED WITH IV INTACT. NO COMPLAINTS. CALL LIGHT WITHIN REACH.
[2016-06-27 15:53] VITALS: BP 118/54
--- NOTE | 2016-06-27 18:24 | NUR ---
OT NOTE: PT REQUIRED MIN A FOR OPENING CONTAINERS DURING DINNER. PT COMPLETED BED MOB WITH MIN A. THANK YOU, SIOBHAN MANN/Morgan
--- NOTE | 2016-06-27 18:45 | NUR ---
PATIENT IN BED WITH IV INTACT. NO COMPLAINTS. BSCDS ON AND WORKING. HUITRON INTACT. CALL LIGHT WITHIN REACH.
--- NOTE | 2016-06-27 19:40 | NUR ---
PT RESTING QUIETLY WATCHING TV. RESP EVEN AND UNLABORED ON 4L NC. DENIES ANY NEEDS AT THIS TIME. BED IN LOWEST POSITION,CALL LIGHT IN REACH, ASSESSMENT PER FLOWSHEET.
[2016-06-27 20:00] VITALS: BP 113/51
--- NOTE | 2016-06-27 23:35 | NUR ---
PT YELLING OUT, UPON ENTERING ROOM PT RESTING IN BED. WHEN ASKED IF HE WAS FEELING OK HE REPLIED," YEP! i JUST MISSED YOU." BED IN LOWEST POSITION,CALL LIGHT IN REACH. WILL CONTINUE TO MONITOR.
[2016-06-28] VITALS: BP 145/54
--- NOTE | 2016-06-28 02:00 | NUR ---
RESTING WITH EYES CLOSED, RESP WITH EASE, NO DISTRESS NOTED, HUITRON DRAINING TO GRAVITY, FALL PRECAUTIONS IN PLACE, CL IN REACH
--- NOTE | 2016-06-28 03:00 | NUR ---
PATIENT SLEEPING WITH NO DISTRESS NOTED. RR EVEN AND UNLABORED. O2 @ 4L VIA NC. IV TO LEFT FA PATENT WITH NO REDNESS OR SWELLING. B/A ON. SCD'S ON. SRX2. BED LOW. CALL LIGHT WITHIN REACH.
[2016-06-28 04:00] VITALS: BP 150/79
[2016-06-28 06:11] LABS: BASOPHILS 0.5 % (0.0-2.0); EOSINOPHILS 2.3 % (0-7); HEMATOCRIT 32.7 % (42.0-54.0); HEMOGLOBIN 10.1 g/dL (13.5-17.5); IMMATURE GRANULOCYTES 0.8 % (0-5); MCH 28.4 pg (26.0-34.0); MCHC 30.9 g/dL (31.0-37.0); MCV 91.9 fL (80.0-100.0); MEAN PLATELET VOLUME 9.5 fL (7.4-10.4); MONOCYTES 6.9 % (2-11); NEUTROPHILS 73.5 % (40-80); PLATELET COUNT 419 10x3/uL (130-400); RBC 3.56 10x6/uL (4.20-6.10); WBC 10.6 10x3/uL (4.8-10.8)
[2016-06-28 06:28] LABS: CALC OSMOLALITY 283 mosm/kg (275-300); CALCIUM 8.4 mg/dL (8.5-10.1); CARBON DIOXIDE 34.9 mmol/L (21.0-32.0); CHLORIDE - SERUM 99 mmol/L (98-107); GLUCOSE 182 mg/dL (74-106); POTASSIUM - SERUM 4.3 mmol/L (3.5-5.1); SODIUM 139 mmol/L (136-145); UREA NITROGEN 16 mg/dL (7-18); eGFR NON AFRICAN AMERICAN 75 mL/min (90-120)
[2016-06-28 06:46] LABS: HEMOGLOBIN A1C 8.7 % (4.8-6.0)
--- NOTE | 2016-06-28 07:55 | NUR ---
PT ASSESSMENT COMPLETE. PT AWAKE, ALERT AND ORIENTED X3, CONFUSED TO PLACE. SEE ASSSESSMENT FLOWSHEET. CALL LIGHT IN REACH, SIDE RAILS UP X2, BED IN LOW POSITION.
[2016-06-28 07:58] VITALS: BP 144/57
[2016-06-28 11:39] VITALS: BP 107/54
--- NOTE | 2016-06-28 12:50 | NUR ---
NUTRITION MONITORING & EVAL CHART REVIEWED, PT VISIT. TOLERATING REG MECH SOFT DIET. 50 TO 75% INTAKE RECENT MEALS. RD FOLLOWING
--- NOTE | 2016-06-28 13:00 | NUR ---
AMBULATING IN HALLWAY WITH PT AT THIS TIME.
[2016-06-28 15:45] VITALS: BP 135/54
--- NOTE | 2016-06-28 17:29 | NUR ---
PT EATING SUPPER MEAL BLOOD SUGAR TREATED PER ORDER WITH HUMALOG SLIDING SCALE.
--- NOTE | 2016-06-28 18:52 | NUR ---
OT NOTE: PT COMPLETED ORAL CARE AND GROOMING WITH SET UP. PT COMPLETED BUE GROSS MOTOR AXS FOR INCREASED I WITH ADLS. THANK YOU, SIOBHAN MANN/Morgan
[2016-06-28 20:00] VITALS: BP 116/57
--- NOTE | 2016-06-28 20:59 | NUR ---
AWAKE,ALERT,O2 PER NC INTACT WITH NO DISTRESS NOTED. IV PATENT TO LEFT ARM WITHOUT REDNESS OR EDEMA. NO COMPLIANTS VOICED. CL IN REACH.
[2016-06-29] VITALS: BP 140/66
--- NOTE | 2016-06-29 02:44 | NUR ---
RESTING QUIETLY.NO DISTRESS NOTED. CL IN REACH.
[2016-06-29 04:00] VITALS: BP 159/72
[2016-06-29 05:08] LABS: BASOPHILS 0.4 % (0.0-2.0); EOSINOPHILS 2.5 % (0-7); HEMATOCRIT 34.2 % (42.0-54.0); HEMOGLOBIN 10.7 g/dL (13.5-17.5); IMMATURE GRANULOCYTES 0.9 % (0-5); LYMPHOCYTES 20.2 % (15-50); MCH 28.5 pg (26.0-34.0); MCHC 31.3 g/dL (31.0-37.0); MCV 91.2 fL (80.0-100.0); MEAN PLATELET VOLUME 9.5 fL (7.4-10.4); MONOCYTES 6.2 % (2-11); NEUTROPHILS 69.8 % (40-80); PLATELET COUNT 382 10x3/uL (130-400); RBC 3.75 10x6/uL (4.20-6.10); RDW 13.9 % (11.5-14.5); WBC 10.9 10x3/uL (4.8-10.8)
[2016-06-29 05:33] LABS: ALBUMIN 2.5 g/dL (3.4-5.0); ALKALINE PHOSPHATASE 120 U/L (46-116); ALT (SGPT) 19 U/L (10-68); CALC OSMOLALITY 280 mosm/kg (275-300); CALCIUM 8.8 mg/dL (8.5-10.1); CARBON DIOXIDE 34.3 mmol/L (21.0-32.0); CHLORIDE - SERUM 99 mmol/L (98-107); GLUCOSE 165 mg/dL (74-106); MAGNESIUM - SERUM 1.8 mg/dL (1.8-2.4); PHOSPHOROUS 3.7 mg/dL (2.5-4.9); POTASSIUM - SERUM 4.2 mmol/L (3.5-5.1); PRO BNP 2365 pg/mL (0-450); SODIUM 138 mmol/L (136-145); UREA NITROGEN 15 mg/dL (7-18); eGFR NON AFRICAN AMERICAN 75 mL/min (90-120)
--- NOTE | 2016-06-29 06:29 | NUR ---
AWAKE WITH NO COMPLIANTS. NO DISTRESS NOTED. CL IN REACH
--- NOTE | 2016-06-29 07:16 | NUR ---
Patient is awake and he is oriented, he is able to state what city he is in, he can tell me how he fractured his left ribs, says he fell out of bed and hit a wall. O2 at 4, scd's on, iv in left forearm, patent. No c/o at this time.
[2016-06-29 08:13] VITALS: BP 167/79
--- NOTE | 2016-06-29 08:52 | NUR ---
CM REASSESSMENT NOTE: PATIENT WILL D/C TODAY BY AMBULANCE TO A SKILLED BED AT [facility]. D/C IMM NOTICE SIGNED. FAMILY (MARCO) AWARE OF DISCHARGE AND IS CALLING [facility].
[2016-06-29] MEDS ORDERED: MUCINEX DM ER1 EAC1 PO (10:12)
[2016-06-29] MEDS ORDERED: TOBREX5 ML LEFT EYE (10:12)
[2016-06-29] MEDS ORDERED: LASIX20 MG PO (10:12)
[2016-06-29] MEDS ORDERED: LIDODERM 5 %1 PATCH TRANSDERM (10:13)
[2016-06-29] MEDS ORDERED: PROTONIX40 MG PO (10:13)
[2016-06-29] MEDS ORDERED: LANTUS INSULIN10 ML SC (10:13)
[2016-06-29] MEDS ORDERED: HUMALOG 30100 UNITS/ SC (10:13)
[2016-06-29] MEDS ORDERED: MIRALAX17 GM PO (10:13)
--- NOTE | 2016-06-29 12:15 | NUR ---
REPORT CALLED TO ELOINA AT [facility], D/C'D PT'S IV SITE, HUITRON CATH INTACT. PATIENT IS AWARE HE IS LEAVING TO GET REHAB AT [facility] PATIENT REMAINS ON O2 AT 4L/M PER N/C. PATIENT IS EATING DINNER, DID SCOOT HIM UP IN BED AND HE HAD BM, DID CHANGE PATIENT AND CLEAN UP EMS IS ON THEIR WAY TO TAKE HIM TO [facility].
--- NOTE | 2016-06-29 12:40 | NUR ---
EMS HERE TO TAKE PATIENT TO [facility] BUT THEY ALLOWED PATIENT TO EAT AT THIS TIME.
[2016-06-29 12:43] VITALS: BP 117/57
--- NOTE | 2016-06-29 13:00 | NUR ---
PATIENT FINISHED EATING AND EMS ASSISTED PATIENT TO STRETCHER, HE IS D[facility].
--- NOTE | 2016-07-11 10:18 | OP ---
PATIENT NAME: HARVEY MARIE MEDICAL RECORD: [id number] :[birth year] LOCATION:D[id number] ADMISSION DATE:06/11/16 SURGEON: EVGENY GIBSON MD DATE OF OPERATION: 06/12/2016 PREOPERATIVE DIAGNOSES: 1. Inability to pass a urinary catheter. 2. Urinary retention. POSTOPERATIVE DIAGNOSES: 1. Inability to pass a urinary catheter. 2. Urinary retention. 3. Meatal urethral stricture. PROCEDURE: Placement of a 16-Kenyan coude catheter over a guide. SURGEON: Evgeny Gibson MD INVENTORY CONTROL/SHIPPING RECEIVING: None. BLOOD LOSS: Minimal. ANESTHESIA: None. OPERATIVE COURSE: The patient was seen in his bedside. The penis and genitals were sterilely prepped and draped. I retracted the foreskin. I prepped the meatus. I loaded a well-lubricated 16-Kenyan coude catheter over a guide. I was able to advance the coude catheter a few inches into the penile urethra and then encountered a strictured area. With general force I was able to get past the strictured area and advanced the coude catheter into the bladder. The guide was removed. The balloon was inflated with 10 cc of normal saline. There was a prompt production a large amount of clear urine. TRANSINT:[id number] Voice Confirmation ID: [id number] DOCUMENT ID: [id number] EVGENY GIBSON MD at 1018 CC: [id number] DICTATION DATE: 06/12/16 1240 MEDICAL INVESTIGATOR: 06/12/16 1350 DIS IN 06/29/16 [place] [id number] [place] [id number]
--- NOTE | 2016-07-11 10:18 | PN ---
PATIENT:HARVEY MARIE MEDICAL RECORD: [id number] LOCATION:D[facility] ADMISSION DATE: 06/11/16 PROGRESS NOTE DATE OF SERVICE: 06/13/2016 Progress Note Addendum CHIEF COMPLAINT: Pain. I saw the patient as he was about to undergo placement of epidural catheter by Dr. Onofre for chest wall analgesia. He is afebrile. He is tachypneic. He has got a moderately labored work of breathing as well as expiratory wheezes. The patient underwent a CTA of the chest. I have personally reviewed the CT images. I have personally reviewed the CT report. Symptoms are somewhat improved. I do not think it would be necessary to proceed with rib plating or ORIF of the ribs. Lying supine aggravates his shortness of breath. Sitting up alleviates to some degree. For the typed portion of the progress note including the past medical and surgical history, allergies, current medications as well as family history, please see the chart. On the CT images, the patient appears to have bilateral airspace disease posteriorly. Perhaps a small pleural effusion on the left, but not enough where it would necessitate a chest tube or a CT-guided placement of a drain. REVIEW OF SYSTEMS: No nausea or vomiting, no fever or chills. Positive for dyspnea on exertion, positive for PND, positive for orthopnea, positive for chest wall pain. The review of systems is negative other than as is described above. PHYSICAL EXAMINATION: GENERAL: The patient appears acutely ill. He also appears chronically ill. VITAL SIGNS: Reviewed. HEAD: External ears appear normal. EYES: Extraocular movements are intact. NECK: Trachea is midline. CHEST: No intercostal retractions. PULMONARY: Moderately labored. Also, as described above. BACK: Mild thoracic kyphosis. ABDOMEN: No peritonitis with movement. EXTREMITIES: No peripheral cyanosis. INTEGUMENT: There is an intertriginous rash. NEUROLOGIC: Answers questions. LYMPHATICS: No lymphangitic streaking of the exposed extremities. IMPRESSION: Blunt chest trauma with respiratory insufficiency and numerous rib fractures. A chest wall pain. A small pleural effusion versus small left hemothorax. Bilateral airspace disease. PLAN: Analgesia by the anesthesia staff. Pulmonary toilet, etc. by the extracorporeal circulation specialist. I will be available to see the patient on a p.r.n. basis. TRANSINT:[id number] Voice Confirmation ID: [id number] DOCUMENT ID: [id number] PROGRESS NOTE [id number] HARVEY MARIE, SUSANA PEDRO at 1018 CC: [id number] DICTATION DATE: 06/13/16 1024 MANAGEMENT PSYCHOLOGIST: 06/13/16 1752 DIS IN 06/29/16 [place] [id number] [place] [id number]
--- NOTE | 2016-07-11 10:18 | CN ---
PATIENT NAME:HARVEY MARIE MEDICAL RECORD: [id number] : [birth year] LOCATION:[facility] ADMIT DATE: 06/11/16 ACCOUNT: [id number] CONSULTING PHYSICIAN: SUSANA GIBSON MD REFERRING PHYSICIAN: NICHELLE NARAYAN MD DATE OF CONSULTATION: 06/12/2016 CHIEF COMPLAINT: Chest trauma. HISTORY OF PRESENT ILLNESS: The patient was at a restaurant and fell. He injured numerous ribs. It appears at least one rib, likely has 2 different fractures. I have reviewed his sequential chest x-rays. I am concerned that he has got significant alveolar disease bilaterally, worse on the left, probably have a pulmonary contusion and likely have either a pleural effusion and/or a hemothorax on the left. I have talked to Dr. Mehta. I am going to ask the anesthesia staff to consider placing either a thoracic epidural or some rib blocks. The patient is on BiPAP and is struggling. It may be that he will require mechanical ventilation. If he has several ribs that have 2 different breaks, he may be a candidate for rib placing. The nurses could not insert a urinary catheter. I have inserted coude catheter at the bedside and this is dictated separately. The patient was very orthopneic, so being supine aggravates. Nothing alleviates. He is evidently doing better on BiPAP than he had been doing. He cannot talk because he is so dyspneic. This limits the history of present illness as well as the review of systems in this patient. This is a surgery consultation note addendum. For the typed portion of the consult note, please see the chart. This includes the past medical and surgical history, allergies, social history, as well as current medications. REVIEW OF SYSTEMS: Limited due to the severity of his illness. PHYSICAL EXAMINATION: GENERAL: The patient appears acutely ill. Also appears chronically ill. VITAL SIGNS: Reviewed. HEAD: External ears appear normal. EYES: Extraocular movements are intact. NECK: Trachea is midline. CHEST: Severely labored. Expiratory wheezes. Decreased breath sounds in the left base. Intercostal retractions. ABDOMEN: No peritonitis with movement. EXTREMITIES: No peripheral cyanosis. INTEGUMENT: There is an intertriginous rash. BACK: Mild thoracic kyphosis. LYMPHATICS: No lymphangitic streaking of the exposed extremities. PSYCHIATRIC: Anxious affect. NEUROLOGIC: He is able to follow some commands. GENITOURINARY: Uncircumcised. IMPRESSION: Blunt chest trauma with probable pleural effusion, hemothorax and several broken ribs and the patient has ventilatory failure and is in respiratory distress. He is on BiPAP and there was difficulty inserting a urinary catheter, which has not been inserted until I came and evaluated the patient. This is dictated separately. CONSULT REPORT [id number] HARVEY MARIE PLAN: A CT scan to better evaluate the patient's pulmonary anatomy as well as the number of rib fractures and see how much fluid was present on the left side and whether removal of this fluid from the left hemithorax may be therapeutic for this patient and the urinary catheter has been placed without difficulty. TRANSINT:[id number] Voice Confirmation ID: [id number] DOCUMENT ID: [id number] SUSANA GIBSON MD at 1018 CC: NANCY MEHTA MD and NICHELLE NARAYAN MD [id number] DICTATION DATE: 06/12/16 1238 AEROSOL SUPERVISOR: 06/12/16 1604 DIS IN 06/29/16 [facility] [address] [place] [address]
[2016-07-17 13:15] LABS: FUNGUS MYCOLOGY CULTURE Final report (())
[2016-08-08 13:20] LABS: ACID FAST CULTURE Negative (()); ACID FAST SMEAR Negative (())
== END 2016-06-29 13:10 | DRG 186 ==
LOC: D.ER 19:35 → D.MS 21:28 → OBSVTIME 21:28 → D.MS 21:28 → D.ICU 06-11 15:10 → D.MS 06-22 14:21
PROVIDERS: Emergency Medicine; Family Medicine; General Practice; Internal Medicine Pulmonary Disease; ADMIT Family Medicine
PROC: 5A09557 Assistance with Respiratory Ventilation, Greater than 96 Consecutive Hours, Continuous Positive Airway Pressure (ICD-10-PCS; 2016-06-11)
PROC: 3E0R3CZ (ICD-10-PCS; 2016-06-11)
PROC: 0T9B70Z Drainage of Bladder with Drainage Device, Via Natural or Artificial Opening (ICD-10-PCS; principal; 2016-06-12)
PROC: 00HU33Z Insertion of Infusion Device into Spinal Canal, Percutaneous Approach (ICD-10-PCS; 2016-06-13)
PROC: 0T9B70Z Drainage of Bladder with Drainage Device, Via Natural or Artificial Opening (ICD-10-PCS; 2016-06-13)
PROC: 0W9B3ZZ Drainage of Left Pleural Cavity, Percutaneous Approach (ICD-10-PCS; 2016-06-19)
DX: J94.2 Hemothorax (principal); J96.01 Acute respiratory failure with hypoxia; J18.9 Pneumonia, unspecified organism; R53.2 Functional quadriplegia; I50.33 Acute on chronic diastolic (congestive) heart failure; S27.329A Contusion of lung, unspecified, initial encounter; J44.0 Chronic obstructive pulmonary disease with (acute) lower respiratory infection; J98.11 Atelectasis; N17.9 Acute kidney failure, unspecified; S22.42XA Multiple fractures of ribs, left side, initial encounter for closed fracture; I13.0 Hypertensive heart and chronic kidney disease with heart failure and stage 1 through stage 4 chronic kidney disease, or unspecified chronic kidney disease; E11.22 Type 2 diabetes mellitus with diabetic chronic kidney disease; N18.9 Chronic kidney disease, unspecified; W19.XXXA Unspecified fall, initial encounter; I25.10 Atherosclerotic heart disease of native coronary artery without angina pectoris; D64.9 Anemia, unspecified; Z95.5 Presence of coronary angioplasty implant and graft; I25.2 Old myocardial infarction; Z87.891 Personal history of nicotine dependence; I95.9 Hypotension, unspecified; R00.1 Bradycardia, unspecified; Z66 Do not resuscitate

== ENCOUNTER 2016-07-13 19:26 | Inpatient (IN) | payer MEDICARE ==
[~2016-07-13] VITALS: Ht 180.3 cm; Wt 86.3 kg
[~2016-07-13 19:26] MED LIST: BAYER CHEWABLE81 MG PO; CALTRATE 600 M600 M1 PO; CRESTOR10 MG PO; FLOMAX0.4 MG PO; FUROSEMIDE20 MG PO; HUMALOG 30100 UNITS/ SC; LANTUS INSULIN10 ML SC; LASIX20 MG PO; LIDODERM 5 %1 PATCH TRANSDERM; LISINOPRIL5 MG PO; MIRALAX17 GM PO; MUCINEX DM ER1 EAC1 PO; MYLANTA / MAALO30 ML PO; NITROQUICK0.4 MG SL; OMEPRAZOLE40 MG PO; PROTONIX40 MG PO; TOBREX5 ML LEFT EYE; VENTOLIN HFA18 GM INH
[2016-07-13 20:42] LABS: BASOPHILS 0.3 % (0.0-2.0); EOSINOPHILS 2.9 % (0-7); HEMATOCRIT 36.2 % (42.0-54.0); IMMATURE GRANULOCYTES 0.7 % (0-5); LYMPHOCYTES 24.2 % (15-50); MCH 28.2 pg (26.0-34.0); MCHC 30.4 g/dL (31.0-37.0); MCV 92.8 fL (80.0-100.0); MEAN PLATELET VOLUME 9.8 fL (7.4-10.4); MONOCYTES 8.1 % (2-11); NEUTROPHILS 63.8 % (40-80); PLATELET COUNT 315 10x3/uL (130-400); RDW 14.4 % (11.5-14.5)
[2016-07-13 20:57] LABS: ALBUMIN 3.1 g/dL (3.4-5.0); ANION GAP 11.1 mmol/L (8-16); BILIRUBIN - TOTAL 0.34 mg/dL (0.2-1.3); CALCIUM 8.5 mg/dL (8.5-10.1); CARBON DIOXIDE 32.4 mmol/L (21.0-32.0); CREATININE - SERUM 1.5 mg/dL (0.6-1.3); POTASSIUM - SERUM 4.5 mmol/L (3.5-5.1); PROTEIN - SERUM 7.3 g/dL (6.4-8.2)
[2016-07-13 21:05] LABS: APTT 27.6 SECONDS (22.8-39.4); INR 1.06 (0.85-1.17); PROTIME 13.7 SECONDS (11.6-15.0)
[2016-07-14 00:22] VITALS: BP 138/63; BMI 22.5
--- NOTE | 2016-07-14 01:00 | NUR ---
HUITRON CATH INCERTED PER ORDER DUE TO URINE RETENTION AND ACCURATE I&O. 16 GREEK HUITRON CATH INCERTED USING STERILE TECHNIQUE MET WITH CLEAR YELLOW URINE RETURN, INSTILLED 10 CC OF NS INTO BULB. STAT LOCK IN PLACE AND CATH SECURE. PT TOLERATED WELL.
[2016-07-14 01:49] VITALS: BP 185/86
[2016-07-14 06:44] LABS: HEMATOCRIT 37.5 % (42.0-54.0); HEMOGLOBIN 11.5 g/dL (13.5-17.5)
--- NOTE | 2016-07-14 07:30 | NUR ---
RECIEVED PT DURING WALKING ROUNDS. PT RESTING COMFORTABLY IN BED WITH NO COMPLAINTS OF PAIN OR DISCOMFORT AT THIS TIME. PT ORIENTED X4. ASSESSMENT DONE PER FLOWSHEET. BED IN LOW POSITION AND CALL LIGHT WITHIN REACH. WILL CONTINUE TO MONITOR.
[2016-07-14 09:08] VITALS: BP 146/70
[2016-07-14 09:39] VITALS: Ht 180.3 cm; Wt 86.3 kg
--- NOTE | 2016-07-14 11:11 | NUR ---
PT IV CONTINUOUSLY ALARMING SAYING "OCCULUEDED PT SIDE" STUDENT NURSE RE SECURED THE PTS IV AT THIS TIME TO PREVENT THE IV TUBING FROM HAVING A OCCLUSION. PT RESTING COMFORTABLY AND BED IN LOW POSITION. WILL CONTINUE TO MONITOR.
--- NOTE | 2016-07-14 12:06 | NUR ---
RESTING QUIETLY IN BED WITH EYES CLOSED. NO NEEDS NOTED. NO SIGNS OF BLEEDING THIS AM.
[2016-07-14 12:41] VITALS: BP 103/66
[2016-07-14 14:02] LABS: HEMATOCRIT 36.6 % (42.0-54.0); HEMOGLOBIN 11.1 g/dL (13.5-17.5)
--- NOTE | 2016-07-14 17:00 | NUR ---
PT HAS MEDIUM SIZED FIRM STOOL AT THIS TIME, SAMPLE SENT TO LAB FOR OCCULT STOOL. BED IN LOW POSITION AND CALL LIGHT WITHIN REACH. WILL CONTINUE TO MONITOR.
[2016-07-14 19:05] VITALS: BP 145/85
[2016-07-14 20:00] VITALS: BP 146/57
--- NOTE | 2016-07-14 20:15 | NUR ---
BM, INCONTINENT AT THIS TIME. BED CHANGE AND BED BATH PROVIDED. NO BLOOD NOTED IN STOOL. WILL CONTINUE TO MONITOR.
[2016-07-14 23:41] LABS: HEMATOCRIT 36.1 % (42.0-54.0); HEMOGLOBIN 11.2 g/dL (13.5-17.5)
--- NOTE | 2016-07-15 03:25 | NUR ---
PT RESTING QUIETLY, RESP EVEN AND UNLABORED. FOLY CATH TO LEFT SIDE OF BED, HAT BINDER TO RESUME CARE.
[2016-07-15 05:50] LABS: BASOPHILS 0.5 % (0.0-2.0); HEMATOCRIT 38.1 % (42.0-54.0); HEMOGLOBIN 11.9 g/dL (13.5-17.5); IMMATURE GRANULOCYTES 0.3 % (0-5); LYMPHOCYTES 20.6 % (15-50); MCH 28.4 pg (26.0-34.0); MCHC 31.2 g/dL (31.0-37.0); MCV 90.9 fL (80.0-100.0); MEAN PLATELET VOLUME 9.5 fL (7.4-10.4); MONOCYTES 7.4 % (2-11); NEUTROPHILS 69.2 % (40-80); PLATELET COUNT 276 10x3/uL (130-400); RBC 4.19 10x6/uL (4.20-6.10); RDW 14.3 % (11.5-14.5); WBC 9.7 10x3/uL (4.8-10.8)
[2016-07-15 06:11] LABS: ANION GAP 12.5 mmol/L (8-16); CARBON DIOXIDE 28.6 mmol/L (21.0-32.0); POTASSIUM - SERUM 4.1 mmol/L (3.5-5.1)
[2016-07-15 06:15] LABS: CREATININE - SERUM 1.1 mg/dL (0.6-1.3)
--- NOTE | 2016-07-15 07:25 | NUR ---
SLEEPING AT THIS TIME. HOB FLAT WITH RESPIRATIONS EVEN AND NON LABORED. SRX3 WITH BED IN LOWEST POSITION AND WHEELS LOCKED. CALL LIGHT IN REACH AND DOOR OPEN. WILL CONTINUE WITH PLAN OF CARE.
[2016-07-15 08:14] VITALS: BP 159/77
--- NOTE | 2016-07-15 11:15 | NUR ---
SCHEDULED FLORAJEN ADMINISTERED AT THIS TIME. PT ALERT AND ORIENTED. ASSESSMENT PERFORMED. CALL LIGHT IN REACH, DENIES PAIN OR NEEDS. HARESH MAT ALARM IN USE FOR FALL PRECAUTIONS. WILL CONTINUE WITH PLAN OF CARE, DOOR OPEN.
[2016-07-15] MEDS ORDERED: ANUSOL-HC25 MG RC (11:40)
--- NOTE | 2016-07-15 12:20 | NUR ---
SPOKE WITH WILLY RN AT [facility], , REGARDING PT'S DISCHARGE. SHE STATED THAT SHE WOULD SEE IF THEY COULD ACCEPT HIM BACK TODAY AND CALL ME BACK AT [phone].
[2016-07-15 12:31] VITALS: BP 124/68
--- NOTE | 2016-07-15 13:15 | NUR ---
SPOKE WITH ЕЛЕНА AGUILERA AT [facility] AND SHE STATED THAT SINCE PT HAS [employer] INSURANCE IT WOULD REQUIRE A PRIOR AUTHORIZATION BEFORE PT COULD RETURN AND THAT IT COULD NOT BE DONE TODAY. INFORMED PT THAT HE WOULD NOT BE GOING BACK TO [facility] TODAY AND THAT IT WOULD LIKELY BE TOMORROW BEFORE HE WOULD RETURN. PT VERBALIZED UNDERSTANDING.
[2016-07-15 13:47] LABS: HEMATOCRIT 36.6 % (42.0-54.0); HEMOGLOBIN 11.3 g/dL (13.5-17.5)
[2016-07-15 15:33] VITALS: BP 120/69
--- NOTE | 2016-07-15 16:55 | NUR ---
PT PLACED ON AND OFF OF THE BED MADRID AT THIS TIME. PULLED UPRIGHT AND POSITIONED IN BED. CALL LIGHT IN REACH, WILL CONTINUE WITH PLAN OF CARE.
--- NOTE | 2016-07-15 19:30 | NUR ---
RECIEVED SHIFT REPORT. PT IS LYING IN BED. ALERT AND ORIENTED AND ABLE TO VERBALIZE NEEDS. IV IS PATENT AND SALINE LOC AT THIS TIME. O2 @ 2 PER NASAL CANNULA. SCD'S ON. PT IS AMBULATORY WITH ASSISTANCE. HUITRON IS DRAINING URINE BY GRAVITY. PT STATES PAIN IS 8/10. NO NEEDS ARE VERBALIZED AT THIS TIME. WILL CONTINUE TO MONITOR. SIDE RAILS ARE UP X 2. BED IS IN LOWEST POSITION. HARESH MAT IS ON FOR SAFETY. CALL LIGHT IS WITHIN REACH.
--- NOTE | 2016-07-15 20:10 | NUR ---
SHIFT ASSESSMENT COMPLETED. SUPPOSITORY GIVEN PER ORDER. PT RECIEVED 2 UNITS INSULIN PER SLIDING SCALE FOR SELB=233. NO NEEDS ARE VOICED. WILL MONITOR. SIDE RAILS X 2. BED LOW. HARESH ON. CALL LIGHT IN REACH.
[2016-07-15 21:00] VITALS: BP 114/65
[2016-07-15 22:18] LABS: HEMATOCRIT 35.9 % (42.0-54.0); HEMOGLOBIN 11.3 g/dL (13.5-17.5)
[2016-07-16 01:00] VITALS: BP 102/60
[2016-07-16 05:11] LABS: HEMATOCRIT 37.3 % (42.0-54.0); HEMOGLOBIN 11.7 g/dL (13.5-17.5)
[2016-07-16 08:40] VITALS: BP 117/50
--- NOTE | 2016-07-16 10:10 | NUR ---
Patient Name: HARVEY MARIE Admission Status: ER Accout number: [id number] Admission Date: 07-13-2016 : 1928 Admission Diagnosis: Attending: CRISTINA Current LOS: 3 Anticipated DC Date: 07-16-2016 Planned Disposition: [facility] Primary Insurance: [employer] CHOICE PPO [employer] Discharge Planning Comments: CM CALLED PATIENTS SHERIF (MARCO) REGARDING D/C NEEDS AND PLANS. PATIENT WAS ADMITTED FROM [facility] AND WILL RETURN THERE AT DISCHARGE. PATIENT WILL GO TO [facility] ONCE DISCHARGED FROM [facility]. PATIENT HAS NO LOCAL PCP YET AND USES [facility] AT THE [facility]. CM WILL CONTINUE TO FOLLOW PATIENT WITH D/C NEEDS AND PLANS. [facility] [phone] [facility] ([place]) [phone] Nuclear Powerplant Supervisor: Regina Bejarano How many steps to enter\exit or inside your home? 0 0 * PCP DR. RICHARD IN [place] NO ONE HERE 0 * [facility] [phone] * Preadmission Environment [facility] 0 * Facility Name [facility] 0 * ADLs Partial Dependent 0 * Partial ADLs (Assistance needed) Bathing Dressing Medication Management Toileting Transfers 0 * Equipment Shower Chair Walker Wheelchair 0 * List name and contact numbers for known caregivers / representatives who currently or will assist patient after discharge: MARCO MATRINES ([facility]) [phone] 0 * Community resources currently utilized None 0 * Additional services required to return to the preadmission environment? Yes 0 * Can the patient safely return to the preadmission environment? Yes 0 * Has this patient been hospitalized within the prior 30 days at any hospital? Yes 0 Grand Total: 0
[2016-07-16 10:22] LABS: BASOPHILS 0.4 % (0.0-2.0); EOSINOPHILS 2.2 % (0-7); HEMATOCRIT 37.8 % (42.0-54.0); HEMOGLOBIN 11.7 g/dL (13.5-17.5); IMMATURE GRANULOCYTES 0.4 % (0-5); LYMPHOCYTES 20.3 % (15-50); MCH 28.5 pg (26.0-34.0); MEAN PLATELET VOLUME 10.1 fL (7.4-10.4); MONOCYTES 7.5 % (2-11); NEUTROPHILS 69.2 % (40-80); PLATELET COUNT 283 10x3/uL (130-400); RBC 4.11 10x6/uL (4.20-6.10); RDW 14.4 % (11.5-14.5); WBC 10.8 10x3/uL (4.8-10.8)
[2016-07-16 10:32] LABS: ALBUMIN 2.9 g/dL (3.4-5.0); ANION GAP 9.6 mmol/L (8-16); BILIRUBIN - TOTAL 0.47 mg/dL (0.2-1.3); CALCIUM 8.8 mg/dL (8.5-10.1); CARBON DIOXIDE 30.3 mmol/L (21.0-32.0); CREATININE - SERUM 1.1 mg/dL (0.6-1.3); POTASSIUM - SERUM 3.9 mmol/L (3.5-5.1); PROTEIN - SERUM 6.8 g/dL (6.4-8.2)
[2016-07-16 12:23] VITALS: BP 115/51
[2016-07-16 14:19] LABS: HEMATOCRIT 37.4 % (42.0-54.0); HEMOGLOBIN 11.7 g/dL (13.5-17.5)
[2016-07-16 16:38] VITALS: BP 127/56
[2016-07-16 19:00] VITALS: BP 134/55
[2016-07-16 23:43] LABS: HEMATOCRIT 35.3 % (42.0-54.0); HEMOGLOBIN 11.1 g/dL (13.5-17.5)
[2016-07-17 04:00] VITALS: BP 173/72
--- NOTE | 2016-07-17 04:00 | NUR ---
PATIENT ASLEEP IN BED, SEDS IN PLACE, O2 AT 2L. NO NEEDS AT THIS TIME. BED LOW, CALL LIGHT WITHIN REACH. CONTINUE TO MONITOR
[2016-07-17 05:38] LABS: BASOPHILS 0.4 % (0.0-2.0); EOSINOPHILS 2.7 % (0-7); HEMATOCRIT 37.5 % (42.0-54.0); HEMOGLOBIN 11.8 g/dL (13.5-17.5); IMMATURE GRANULOCYTES 0.5 % (0-5); LYMPHOCYTES 20.8 % (15-50); MCH 28.2 pg (26.0-34.0); MCHC 31.5 g/dL (31.0-37.0); MEAN PLATELET VOLUME 9.6 fL (7.4-10.4); MONOCYTES 7.4 % (2-11); NEUTROPHILS 68.2 % (40-80); PLATELET COUNT 265 10x3/uL (130-400); RBC 4.18 10x6/uL (4.20-6.10); RDW 14.3 % (11.5-14.5); WBC 10.1 10x3/uL (4.8-10.8)
[2016-07-17 05:43] LABS: MCV 89.7 fL (80.0-100.0)
--- NOTE | 2016-07-17 07:05 | NUR ---
PATIENT RESTING QUIETLY WITH EYES CLOSED UPON ENTERING ROOM. PATIENT AROUSED EASILY. PATIENT DENIES NEEDS AT THIS TIME. ASSESSMENT COMPLETED. BED IN LOWEST POSITION, CALL LIGHT IN REACH. BED RAILS UP X'S 2.
[2016-07-17 08:13] VITALS: BP 132/69
[2016-07-17 12:23] VITALS: BP 109/50
--- NOTE | 2016-07-17 12:42 | NUR ---
DNR PAPER WORK ON THE CHART. SHOWED IT TO AND VASHTI LEY.
[2016-07-17 14:11] LABS: HEMATOCRIT 37.3 % (42.0-54.0); HEMOGLOBIN 11.6 g/dL (13.5-17.5)
[2016-07-17 15:28] VITALS: BP 125/54
--- NOTE | 2016-07-17 16:25 | NUR ---
CM REASSESSMENT NOTE: PATIENT HAS A DISCHARGE IN TO [facility]. PATIENT IS RETURNING THERE FOR REHAB. ELVIN AT [employer] SENT AUTH IN AND HAS TALKED TO 3 DIFFERENT ASSEMBLER CAMPER AT [employer]. CM HAS CALLED 3 TIMES TO [employer] AND THEY ARE SAYING THEY HAVE NOT HEARD ANYTHING FROM INS[employer] ON HIS AUTH. [employer] STATED THEY WILL CALL WHEN APPROVED.
--- NOTE | 2016-07-17 18:15 | NUR ---
HUITRON CARE COMPLETED BY THE INA URENA.
[2016-07-17 19:00] VITALS: BP 140/59
--- NOTE | 2016-07-17 20:00 | NUR ---
ASSESSMENT PER FLOWSHEET. IV LEFT FOREARM SALINE LOCKED SITE CLEAR. HUITRON TO BEDSIDE DRAINAGE WITH SALVADOR COLORED URINE. SR UP X2 CALL LIGHT WITHIN REACH O2 ON 2L/M PER NC. NO DISTRESS..
--- NOTE | 2016-07-17 21:15 | NUR ---
MEDS GIVEN PER MAR. JGEJ=[id number]. HUMALOG INSULIN 4 UNITS GIVEN SUBC PER S/S
[2016-07-17 21:57] LABS: HEMATOCRIT 35.2 % (42.0-54.0); HEMOGLOBIN 11.2 g/dL (13.5-17.5)
--- NOTE | 2016-07-18 | NUR ---
RESTING QUIETLY REPOSITIONED IN BED SR UP X2 CALL LIGHT WITHIN REACH.
--- NOTE | 2016-07-18 02:29 | NUR ---
EYES CLOSED RESPIRATIONS WITH EASE AND UNLABORED.
[2016-07-18 04:00] VITALS: BP 104/55
--- NOTE | 2016-07-18 06:00 | NUR ---
CKMI=[id number] 2 UNITS HUMALOG INSULIN GIVEN SUBC PER S/S. NO CHANGES IN ASSESSMENT.
[2016-07-18 06:36] LABS: HEMATOCRIT 37.2 % (42.0-54.0); HEMOGLOBIN 11.6 g/dL (13.5-17.5)
[2016-07-18 08:13] VITALS: BP 136/69
--- NOTE | 2016-07-18 09:13 | NUR ---
CM REASSESSMENT NOTE: JEFFRY MACKEY WITH [facility] CALLED AND STATED SHE HAD A HARD TIME WITH [employer] RETURNING CALLS AND GETTING INFO FROM THEM. PATIENT HAS BEEN DECLINED AT THIS TIME. CM RESUBMITTED NEW PT NOTES FROM YESTERDAY AND OTHER CLINICALS. [facility] STATED THEY WOULD CALL CM BACK TODAY WITH AN ANSWER.
[2016-07-18 09:41] LABS: BASOPHILS 0.3 % (0.0-2.0); EOSINOPHILS 2.6 % (0-7); IMMATURE GRANULOCYTES 0.5 % (0-5); MCH 28.3 pg (26.0-34.0); MCHC 31.1 g/dL (31.0-37.0); MCV 91.1 fL (80.0-100.0); MONOCYTES 7.6 % (2-11); PLATELET COUNT 269 10x3/uL (130-400); RBC 4.03 10x6/uL (4.20-6.10); RDW 14.3 % (11.5-14.5)
[2016-07-18 09:51] LABS: ALBUMIN 2.9 g/dL (3.4-5.0); ANION GAP 9.9 mmol/L (8-16); BILIRUBIN - TOTAL 0.54 mg/dL (0.2-1.3); CALCIUM 8.9 mg/dL (8.5-10.1); CARBON DIOXIDE 31.3 mmol/L (21.0-32.0); CREATININE - SERUM 1.2 mg/dL (0.6-1.3); POTASSIUM - SERUM 4.2 mmol/L (3.5-5.1); PROTEIN - SERUM 6.3 g/dL (6.4-8.2)
[2016-07-18 12:10] VITALS: BP 122/47
--- NOTE | 2016-07-18 12:53 | NUR ---
NUTRITION MONITORING & EVAL CHART REVIEWED, PT VISIT. TOLERATING MECH SOFT DIET. NOTE POSSIBLE DC. RD FOLLOWING
[2016-07-18 14:26] LABS: HEMATOCRIT 36.7 % (42.0-54.0); HEMOGLOBIN 11.4 g/dL (13.5-17.5)
[2016-07-18 16:36] VITALS: BP 144/69
--- NOTE | 2016-07-18 17:00 | NUR ---
HUITRON CARE COMPLETED. DISCHARGE INSTRUCTIONS COMPLETED WITH PATIENT, PATIENT VERBALIZED UNDERSTANDING AND DENIES QUESTIONS. D/C IV, PATIENT TOLERATED WELL. PATIENT DENIES NEEDS.
--- NOTE | 2016-07-18 17:21 | NUR ---
CALLED REPORT TO SADIE AT [facility].
--- NOTE | 2016-07-18 17:40 | NUR ---
PATIENT LEFT VIA WHEELCHAIR WITH STAFF MEMBER FROM [facility].
== END 2016-07-18 20:52 | DRG 393 ==
LOC: D.ER 19:26 → D.MS 23:01
PROVIDERS: Emergency Medicine; Family Medicine Adult Medicine; Internal Medicine Gastroenterology; ADMIT Emergency Medicine
DX: K64.9 Unspecified hemorrhoids (principal); R53.2 Functional quadriplegia; D62 Acute posthemorrhagic anemia; N17.9 Acute kidney failure, unspecified; K59.00 Constipation, unspecified; K57.90 Diverticulosis of intestine, part unspecified, without perforation or abscess without bleeding; I10 Essential (primary) hypertension; I25.10 Atherosclerotic heart disease of native coronary artery without angina pectoris; K21.9 Gastro-esophageal reflux disease without esophagitis; E11.65 Type 2 diabetes mellitus with hyperglycemia; Z79.4 Long term (current) use of insulin

== ENCOUNTER 2016-07-24 14:40 | Emergency (ER) | payer MEDICARE ==
[2016-07-14 09:39] VITALS: BMI 26.5
[~2016-07-24 14:40] MED LIST changes: +ANUSOL-HC25 MG RC
== END 2016-07-24 17:40 | disposition home or self-care (01) ==
LOC: D.ER 14:40
DX: S09.90XA Unspecified injury of head, initial encounter (principal); W19.XXXA Unspecified fall, initial encounter; Y93.89 Activity, other specified; Y92.129 Unspecified place in nursing home as the place of occurrence of the external cause; E11.9 Type 2 diabetes mellitus without complications; K21.9 Gastro-esophageal reflux disease without esophagitis; I10 Essential (primary) hypertension

== ENCOUNTER 2016-07-27 00:03 | Inpatient (IN) | payer MEDICARE ==
[~2016-07-27] VITALS: Ht 180.3 cm; Wt 123.8 kg
[2016-07-27 00:36] LABS: BASOPHILS 0.3 % (0.0-2.0); EOSINOPHILS 2.9 % (0-7); HEMATOCRIT 37.3 % (42.0-54.0); HEMOGLOBIN 11.8 g/dL (13.5-17.5); IMMATURE GRANULOCYTES 0.5 % (0-5); LYMPHOCYTES 16.6 % (15-50); MCH 28.3 pg (26.0-34.0); MCHC 31.6 g/dL (31.0-37.0); MCV 89.4 fL (80.0-100.0); MEAN PLATELET VOLUME 9.7 fL (7.4-10.4); MONOCYTES 8.5 % (2-11); NEUTROPHILS 71.2 % (40-80); PLATELET COUNT 299 10x3/uL (130-400); RBC 4.17 10x6/uL (4.20-6.10); RDW 14.5 % (11.5-14.5); WBC 11.7 10x3/uL (4.8-10.8)
[2016-07-27 00:42] LABS: APPEARANCE HAZY (CLEAR); BILIRUBIN NEGATIVE (NEGATIVE); COLOR YELLOW (YELLOW); GLUCOSE NEGATIVE (NEGATIVE); KETONE NEGATIVE (NEGATIVE); LEUKOCYTE ESTERASE 2+ (NEGATIVE); NITRITE NEGATIVE (NEGATIVE); PH 5.5 (5.0-6.0); PROTEIN TRACE mg/dL (NEGATIVE); SPECIFIC GRAVITY 1.015 (1.005-1.020); UROBILINOGEN NORMAL (NORMAL)
[2016-07-27 00:50] LABS: AMORPHOUS SEDIMENT <1+ /lpf (NONE SEEN); BACTERIA MANY /hpf (NONE SEEN); EPITHELIAL CELLS RARE /hpf (0-5); GRANULAR CAST RARE /lpf (NONE SEEN); HYALINE CAST OCC /lpf (NONE SEEN); WAXY CAST RARE /lpf (NONE SEEN); WHITE CELLS - URINE >50 /hpf (0-5)
[2016-07-27 00:53] LABS: CALCIUM 8.8 mg/dL (8.5-10.1); CARBON DIOXIDE 34.9 mmol/L (21.0-32.0); CREATININE - SERUM 1.4 mg/dL (0.6-1.3); POTASSIUM - SERUM 3.9 mmol/L (3.5-5.1); TROPONIN-I 0.016 ng/mL (0.000-0.060)
--- NOTE | 2016-07-27 02:06 | NUR ---
REC'D SHIFT REPORT FROM ER NURSE GLENIS. PT WILL BE ARRIVING SOON. ROOM SET-UP READY FOR PT. WILL CONTINUE WITH ADMISSION WORKUP WHEN PT ARRIVES.
--- NOTE | 2016-07-27 02:29 | NUR ---
PT ARRIVED TO ROOM VIA STRETCHER. TRANSFERRED TO OUR UNIT BED. ORIENTED PT TO ROOM SITUATION HOWEVER PT VERY CONFUSED AND NOT RETAINING INFORMATION PROVIDED. PT HAS HUITRON CATHETER DRAINING CLEAR YELLOW URINE BUT NOT ABLE TO INFORM ME ON REASON FOR HUITRON. HUITRON BAG DATED 07/22/16. PT HAS L.AC PIV WITH DRSG CDI, NO SWAB CAP IN PLACE SO I PLACED ONE. CONNECTED PT TO 4L NC ORDERED. WILL OBTAIN VITALS AND ADMISSION WORK-UP TO BEST OF MY ABILITY HOWEVER PT IS A VERY POOR HISTORIAN. CL IN REACH, BED IN LOWEST, SIDE RAILS X2 AND BUILT IN BED ALARM ON.
[2016-07-27 02:55] VITALS: BP 119/60; BMI 29.3
--- NOTE | 2016-07-27 03:38 | NUR ---
INITIATED PTS IVPB ANBX ALONG WITH SCHEDULED IV FLUIDS OF NS @75ML/HR. TUBING NEW AND DATED. INFUSING VIA L.AC PIV WITH DRSG CDI AND SWAB CAPS IN USE ON ALL OPEN PORTS. PT RESTING QUIETLY IN BED WITH EYES CLOSED. NO NEEDS IDENTIFIED AT THIS TIME. WILL CPOC.
[2016-07-27 04:00] VITALS: BP 119/60
--- NOTE | 2016-07-27 04:53 | NUR ---
PUMP BEEPING R/T ARM BEING BENT AND OCCLUDING IV FLOW. INSTRUCTED PT TO TRY AND KEEP ARM STRAIGHT POSSIBLE WHEN ABLE TO. PT VERBALIZED UNDERSTANDING AND REQUESTED CUP OF ICE WATER AND WAS PROVIDED WITH IT. CL IN REACH, BED IN LOWEST, SIDE RAILS X2 AND BUILT IN BED ALARM ON. NO FURTHER NEEDS IDENTIFIED AT THIS TIME. WILL CPOC.
--- NOTE | 2016-07-27 07:30 | NUR ---
RESTING QUIETLY EYES CLOSED RESP UNLABORED SKIN W/D NAD NOTED
[2016-07-27 08:56] VITALS: BP 119/46
[2016-07-27 10:49] VITALS: Ht 180.3 cm; Wt 123.8 kg
[2016-07-27 12:00] VITALS: BP 102/39
--- NOTE | 2016-07-27 12:06 | NUR ---
FSBS 211 HUMALOG 4 UNIT GIVEN SQ LT ARM
--- NOTE | 2016-07-27 13:19 | NUR ---
SCDs ON PT AND PATENT
--- NOTE | 2016-07-27 16:26 | NUR ---
FSBS 202 HUMALOG 4 UNITS GIVEN SQ ABDOMEN
[2016-07-27 17:41] VITALS: BP 111/51
[2016-07-27 18:11] LABS: % SATURATION 11 % (15-55); IRON 30 ug/dl (35-150); TOTAL IRON BIND CAPACITY 259 ug/dl (260-445); UNSAT IRON BIND CAPACITY 229 ug/dl (150-375)
--- NOTE | 2016-07-27 20:45 | NUR ---
PT RECEIVED LYING IN BED RESTING QUIETLY AT THIS TIME. AROUSED EASILY. ASSESSMENT COMPLETED PER FLOW SHEET AT THIS TIME. IV NOTED TO LEFT A/C. INFUSING NS @ 75 CC HR. PATENT. DRESSING CDI. HUITRON ATTACHED TO RIGHT THIGH DRAINING SALVADOR URINE AT THIS TIME. O2 @ 3 L VIA NC. PT DENIES NEEDS AT THIS TIME. BED LOW. PHONE AND CALL LIGHT NI REACH. SRX2.
--- NOTE | 2016-07-27 21:14 | NUR ---
PT FSBS 191 AT THIS TIME.
--- NOTE | 2016-07-27 23:52 | NUR ---
ADMINISTERED ANUSOL SUPPOSITORY AT THIS TIME. PT DENIES NEEDS. BED LOW. PHONE AND CALL LIGHT IN REACH. SRX2.
[2016-07-28] VITALS: BP 120/56
--- NOTE | 2016-07-28 00:24 | NUR ---
ADMINISTERED TOBREX TO LEFT EYE AT THIS TIME. PT DENIES NEEDS. BED LOW. PHONE AND CALL LIGHT IN REACH. SRX2.
--- NOTE | 2016-07-28 01:41 | NUR ---
TEFLARO IVPB INITIATED AT THIS TIME PER ORDERS. PT RESTING QUIETLY WITH EYES CLOSED. RESPIRATIONS EVEN, NON-LABORED. NO ACUTE DISTRESS NOTED AT THIS TIME. BED LOW. PHONE AND CALL LIGHT IN REACH. SRX2.
--- NOTE | 2016-07-28 01:53 | NUR ---
PT RESTING QUIETLY AT THIS TIME WITH EYES CLOSED. RESPIRATIONS EVEN, NON-LABORED. NO ACUTE DISTRESS NOTED AT THIS TIME. BED LOW. PHONE AND CALL LIGHT IN REACH. SRX2.
[2016-07-28 04:00] VITALS: BP 154/72
--- NOTE | 2016-07-28 05:12 | NUR ---
PT BED LINENS CHANGED AT THIS TIME DUE TO INCONTINENT BM. HUITRON LEAKING. BED WET WITH URINE. MANIPULATED HUITRON SALVADOR URINE DRAINING NOW TO GRAVITY. PT DENIES NEEDS. BED LOW. PHONE AND CALL LIGHT IN REACH. SRX2.
[2016-07-28 05:26] LABS: BASOPHILS 0.3 % (0.0-2.0); EOSINOPHILS 4.7 % (0-7); HEMATOCRIT 33.5 % (42.0-54.0); HEMOGLOBIN 10.4 g/dL (13.5-17.5); IMMATURE GRANULOCYTES 0.7 % (0-5); LYMPHOCYTES 22.6 % (15-50); MCH 27.9 pg (26.0-34.0); MCV 89.8 fL (80.0-100.0); MEAN PLATELET VOLUME 9.8 fL (7.4-10.4); MONOCYTES 8.3 % (2-11); NEUTROPHILS 63.4 % (40-80); PLATELET COUNT 273 10x3/uL (130-400); RBC 3.73 10x6/uL (4.20-6.10); RDW 14.6 % (11.5-14.5); WBC 8.9 10x3/uL (4.8-10.8)
[2016-07-28 05:50] LABS: ANION GAP 9.8 mmol/L (8-16); CALCIUM 8.6 mg/dL (8.5-10.1); CARBON DIOXIDE 30.5 mmol/L (21.0-32.0); CREATININE - SERUM 1.3 mg/dL (0.6-1.3); POTASSIUM - SERUM 4.3 mmol/L (3.5-5.1)
--- NOTE | 2016-07-28 06:33 | NUR ---
PT FSBS 152 AT THIS TIME.
--- NOTE | 2016-07-28 07:55 | NUR ---
AWAKE AND ALERT O2 ON @ 2. WILL CONTINUE TO MONITOR.
[2016-07-28 09:19] VITALS: BP 128/59
[2016-07-28 12:21] VITALS: BP 129/60
--- NOTE | 2016-07-28 13:27 | NUR ---
FOUND PATIENT IN BLOOD. HE HAD PULLED OUT HIS IV AND HUITRON. CONFUSED-THINKS HE IS AT [facility]. TOLD PATIENT HE IS IN HOSPITAL. PATIENT IS ORIENTED TO BIRTHDATE, YEAR AND WHO THE PRESIDENT IS. IV RESTARTED INR ARM WITH 20 GAUGE ON 1ST ATTEMPT. BED ALARM ON.
[2016-07-28 15:49] VITALS: BP 86/68
--- NOTE | 2016-07-28 18:04 | NUR ---
PT IS ALERT. ASSESSMENT DONE PER FLOWSHEET. NO OTHER NEEDS AT THIS TIME. WILL CONTINUE TO MONITOR.
[2016-07-28 21:37] VITALS: BP 144/51
[2016-07-29 00:30] VITALS: BP 156/65
[2016-07-29 04:30] VITALS: BP 143/72
[2016-07-29 06:03] LABS: BASOPHILS 0.4 % (0.0-2.0); EOSINOPHILS 5.1 % (0-7); HEMATOCRIT 34.2 % (42.0-54.0); HEMOGLOBIN 10.7 g/dL (13.5-17.5); IMMATURE GRANULOCYTES 0.4 % (0-5); LYMPHOCYTES 20.6 % (15-50); MCH 28.1 pg (26.0-34.0); MCHC 31.3 g/dL (31.0-37.0); MCV 89.8 fL (80.0-100.0); MEAN PLATELET VOLUME 9.9 fL (7.4-10.4); MONOCYTES 6.7 % (2-11); NEUTROPHILS 66.8 % (40-80); PLATELET COUNT 277 10x3/uL (130-400); RBC 3.81 10x6/uL (4.20-6.10); RDW 14.5 % (11.5-14.5); WBC 9.5 10x3/uL (4.8-10.8)
[2016-07-29 06:36] LABS: ANION GAP 9.4 mmol/L (8-16); CALCIUM 8.9 mg/dL (8.5-10.1); CARBON DIOXIDE 29.7 mmol/L (21.0-32.0); CREATININE - SERUM 1.2 mg/dL (0.6-1.3); POTASSIUM - SERUM 4.1 mmol/L (3.5-5.1)
--- NOTE | 2016-07-29 07:25 | NUR ---
PT SITTING UP IN BED SLEEPING NO S/S DISTRESS NOTED WILL CONT TO MONITOR
[2016-07-29 08:11] LABS: MAGNESIUM - SERUM 1.6 mg/dL (1.8-2.4); PHOSPHOROUS 3.3 mg/dL (2.5-4.9)
[2016-07-29 08:59] VITALS: BP 168/72
[2016-07-29 12:14] VITALS: BP 144/60
--- NOTE | 2016-07-29 13:33 | NUR ---
DES PACHECO RN INSERTED 16F HUITRON WITH MY ASSISTANCE. STERILE TECHNIQUE INITIATED. 10 CC STERILE FLUID IN BALLOON.
[2016-07-29 16:13] VITALS: BP 93/48
--- NOTE | 2016-07-29 18:12 | NUR ---
PT SITTING UP IN BED YELLING OUT. "I SHIT MY PANTS, I SHIT MY PANTS!" CHECKED PT PT IS CLEAN AND DRY. PT DENIES OTHER NEEDS AND TELLS NURSING STAFF "I LOVE YOU".
--- NOTE | 2016-07-29 19:15 | NUR ---
INITIAL ROUNDS MADE. PT SITTING UP IN BED WATCHING TV. NO NEEDS OR C/O VOICED AT THIS TIME. CALL LIGHT INREACH. WILL CONT TO MONITOR.
[2016-07-29 21:37] VITALS: BP 123/60
--- NOTE | 2016-07-30 00:22 | NUR ---
SCHOOL CHILDCARE ATTENDANT AT BEDSIDE FOR VS. NEEDS ADDRESSED AT THIS TIME. CALL LIGHT IN REACH. WILL CONT TO MONITOR.
[2016-07-30 00:30] VITALS: BP 161/79
[2016-07-30 04:45] VITALS: BP 105/50
--- NOTE | 2016-07-30 05:00 | NUR ---
RESTING WELL WITH EYES CLOSED, CONT TO MONITOR.
[2016-07-30 06:23] LABS: BASOPHILS 0.4 % (0.0-2.0); EOSINOPHILS 6.1 % (0-7); HEMATOCRIT 35.3 % (42.0-54.0); HEMOGLOBIN 11.1 g/dL (13.5-17.5); IMMATURE GRANULOCYTES 0.3 % (0-5); MCHC 31.4 g/dL (31.0-37.0); MCV 89.1 fL (80.0-100.0); MONOCYTES 8.8 % (2-11); NEUTROPHILS 65.4 % (40-80); PLATELET COUNT 309 10x3/uL (130-400); RBC 3.96 10x6/uL (4.20-6.10); RDW 14.2 % (11.5-14.5); WBC 9.9 10x3/uL (4.8-10.8)
[2016-07-30 06:41] LABS: ANION GAP 9.3 mmol/L (8-16); CALCIUM 8.8 mg/dL (8.5-10.1); CARBON DIOXIDE 29.8 mmol/L (21.0-32.0); CREATININE - SERUM 1.2 mg/dL (0.6-1.3); MAGNESIUM - SERUM 1.9 mg/dL (1.8-2.4); POTASSIUM - SERUM 4.1 mmol/L (3.5-5.1)
--- NOTE | 2016-07-30 07:30 | NUR ---
RECEIVED PT IN BED EYES CLOSED RESP UNLABORED O2 ON 4LPM NC NAD NOTED
[2016-07-30 08:00] VITALS: BP 112/58
--- NOTE | 2016-07-30 11:42 | NUR ---
FSBS 208 HUMALOG 4 UNITS GIVEN SQ ABD
[2016-07-30 12:08] VITALS: BP 110/50
[2016-07-30 16:00] VITALS: BP 125/59
--- NOTE | 2016-07-30 17:27 | NUR ---
FSBS 113
--- NOTE | 2016-07-30 19:15 | NUR ---
INITIAL ROUNDS MADE. PT SITTING UP IN BED WATCHING TV. NO NEEDS OR C/O VOICED AT THIS TIME. CALL LIGHT INREACH. WILL CONT TO MONITOR.
[2016-07-30 21:40] VITALS: BP 117/52
[2016-07-31 02:00] VITALS: BP 126/66
--- NOTE | 2016-07-31 03:48 | NUR ---
RESTING WELL WITH EYES CLOSED. CALL LIGHT IN REACH. WILL CONT TO MONITOR.
[2016-07-31 04:21] LABS: BASOPHILS 0.5 % (0.0-2.0); EOSINOPHILS 5.5 % (0-7); HEMATOCRIT 33.2 % (42.0-54.0); HEMOGLOBIN 10.3 g/dL (13.5-17.5); IMMATURE GRANULOCYTES 0.4 % (0-5); LYMPHOCYTES 25.9 % (15-50); MCH 27.9 pg (26.0-34.0); MEAN PLATELET VOLUME 9.9 fL (7.4-10.4); MONOCYTES 7.8 % (2-11); NEUTROPHILS 59.9 % (40-80); PLATELET COUNT 273 10x3/uL (130-400); RBC 3.69 10x6/uL (4.20-6.10); RDW 14.3 % (11.5-14.5); WBC 8.1 10x3/uL (4.8-10.8)
[2016-07-31 04:45] LABS: ANION GAP 10.2 mmol/L (8-16); CALCIUM 8.6 mg/dL (8.5-10.1); CARBON DIOXIDE 29.5 mmol/L (21.0-32.0); CREATININE - SERUM 1.2 mg/dL (0.6-1.3); POTASSIUM - SERUM 3.7 mmol/L (3.5-5.1)
--- NOTE | 2016-07-31 07:30 | NUR ---
RESTING QUIETLY NAD NOTED
[2016-07-31 07:52] VITALS: BP 147/65
[2016-07-31 09:17] LABS: FOLATE (FOLIC ACID) - SERUM 10.6 ng/mL (>3.0)
--- NOTE | 2016-07-31 09:55 | NUR ---
MORNING MEDS GIVEN COMPUTER DID NOT SAVE AND RECOMPILE
[2016-07-31 11:42] VITALS: BP 154/72
--- NOTE | 2016-07-31 11:57 | NUR ---
FSBA 250 HUMALOG 4 UNITS GIVEN SQ ABDOMEN
[2016-07-31 15:51] VITALS: BP 144/69
--- NOTE | 2016-07-31 16:57 | NUR ---
FSBS 117
--- NOTE | 2016-07-31 19:15 | NUR ---
INITIAL ROUNDS MADE. PT SITTING UP IN BED WATCHING TV WITH FAMILY AT BEDSIDE. DISCUSSED PLAN OF CARE AND ANSWERED QUESTIONS. PT DENIES NEEDS OR C/O AT THIS TIME. CALL LIGHT IN REACH. WILL CONT TO MONITOR.
--- NOTE | 2016-07-31 23:56 | NUR ---
POLICE SPECIALIST AT BEDSIDE FOR VS. NEEDS ADDRESSED AT THIS TIME. CALL LIGHT IN REACH. WILL CONT TO MONITOR.
[2016-08-01] VITALS: BP 139/61
[2016-08-01 04:00] VITALS: BP 136/63
[2016-08-01 07:03] LABS: BASOPHILS 0.5 % (0.0-2.0); EOSINOPHILS 5.6 % (0-7); HEMATOCRIT 34.4 % (42.0-54.0); HEMOGLOBIN 10.9 g/dL (13.5-17.5); IMMATURE GRANULOCYTES 0.5 % (0-5); LYMPHOCYTES 22.4 % (15-50); MCH 28.5 pg (26.0-34.0); MCHC 31.7 g/dL (31.0-37.0); MCV 89.8 fL (80.0-100.0); MEAN PLATELET VOLUME 9.8 fL (7.4-10.4); MONOCYTES 7.4 % (2-11); NEUTROPHILS 63.6 % (40-80); PLATELET COUNT 288 10x3/uL (130-400); RBC 3.83 10x6/uL (4.20-6.10); RDW 14.2 % (11.5-14.5); WBC 8.8 10x3/uL (4.8-10.8)
[2016-08-01 07:22] LABS: ANION GAP 10.3 mmol/L (8-16); CALCIUM 8.8 mg/dL (8.5-10.1); CARBON DIOXIDE 29.5 mmol/L (21.0-32.0); CREATININE - SERUM 1.1 mg/dL (0.6-1.3); POTASSIUM - SERUM 3.8 mmol/L (3.5-5.1)
[2016-08-01 07:48] VITALS: BP 130/69
--- NOTE | 2016-08-01 09:54 | NUR ---
PT IS ALERT. ASSESSMENT DONE PER FLOWSHEET. NO OTHER NEEDS AT THIS TIME. WILL CONTINUE TO MONITOR.
[2016-08-01 11:46] VITALS: BP 152/62
--- NOTE | 2016-08-01 13:55 | NUR ---
Nutrition follow-up: Diet: ADA consistent CHO PO intake ~75% of meals->pt being assisted with meals Labs reviewed Wt: 191# +BM Will continue to provide food choices with selective menus and honor food preferences. RDN following.
--- NOTE | 2016-08-01 14:30 | NUR ---
PT SHOWS NO SS OF DISTRESS AT THIS TIME. WILL CONTINUE TO MONTIOR.
[2016-08-01 16:01] VITALS: BP 136/66
--- NOTE | 2016-08-01 19:29 | NUR ---
PT IS ALERT. ASSESSMENT DONE PER FLOWSHEET. NO OTHER NEEDS WILL CONTINUE TO MONITOR.
[2016-08-01 20:00] VITALS: BP 149/62
--- NOTE | 2016-08-01 22:42 | NUR ---
PT SLEEPING. HOB ELEVATED. RESP EVEN AND UNLABORED. APPEARS COMFORTABLE. WEARING SCD'S, IV TO RT FA PATENT WITH NA @ 75ML/HR INFUSING. ELANA PATENT TO BSD WITH CLEAR YELLOW URINE IN BAG. BED ALARM ON. CALL LIGHT WITH IN REACH. WILL CONT. TO MONITOR.
[2016-08-02] VITALS: BP 156/81
--- NOTE | 2016-08-02 00:31 | NUR ---
PT YELLING OUT HELP. NURSE WENT INTO ROOM AND ASKED PT WHAT HE NEEDS. PT STATES " I DON'T KNOW, TO GET COMFORTABLE." NURSE ASSITED PT WITH TURNING ONTO LEFT SIDE AND PLACING PILLOW BEHIND HIM. ALSO ADJUSTED PLACED THERMOSTAT ON 75, WAS SET ON 85. WILL CONT. TO MONITOR. BED ALARM ON.
[2016-08-02 04:00] VITALS: BP 151/75
[2016-08-02 08:17] VITALS: BP 153/61
--- NOTE | 2016-08-02 09:01 | NUR ---
PT IS ALERT. ASSESSMENT DONE PER FLOWSHEET. NO OTHER NEEDS
[2016-08-02 11:50] VITALS: BP 159/73
--- NOTE | 2016-08-02 12:22 | NUR ---
PT IS ALERT. NO SS OF DISTRESS WILL CONTINUE TO MONITOR.
[2016-08-02 16:11] VITALS: BP 170/80
--- NOTE | 2016-08-02 17:22 | NUR ---
Patient Name: HARVEY MARIE Admission Status: ER Accout number: [id number] Admission Date: 07-27-2016 : 1930 Admission Diagnosis:PNEUMONIA, UNSPECIFIED ORGANISM Attending: DELILAH Current LOS: 6 Anticipated DC Date: 08-03-2016 Planned Disposition: Home with Home Health Primary Insurance: [employer] CHOICE PPO MCR ADVANT Discharge Planning Comments: ЕЛЕНА VILLANUEVA ATTEMPTED TO ASSESS PT FOR DISCHARGE NEEDS IN ROOM. PT WAS VERY DIFFICULT TO WAKE UP. PT INFORMED CM HE WAS GOING HOME WITH HIS IMELDA AND TO SPEAK TO HER. ЕЛЕНА VILLANUEVA CALLED AND LEFT MESSAGE FOR [facility] AVILES, , REQUESTING RETURN CALL. SH[facility] CALLED [facility], , WHO REPORTED THAT PT WAS DISCHARGED FROM REHAB ON 07-25-16 AT FAMILY REQUEST THEY DID NOT WANT TO CONTINUE TO PAY COPAY FOR REHAB SERVICES. SHY RECEIVED TELEPHONE CALL FROM [facility], ; YAMIL REPORTED RECEIVING REFERRAL BUT PT WAS NOT ADMITTED AND [facility] NEEDS NEW HOME HEALTH ORDERS AT HOSPITAL DISCHARGE. CM RECEIVED CALL FROM [facility] WHO REPORTS THAT SHE DOES NOT THINK PT WILL NEED [facility] REHAB AND THAT AFTER PT GOT OUT OF [facility], PT WENT BACK TO HIS APARTMENT AT [facility]. SINCE THIS HAS HAPPENED, MARCO HAS MADE PLANS TO MOVE PT IN WITH HER SHE HAS A TWO BEDROOM HOME THAT SHE JUST OBTAINED. [facility] SET UP HOME HEALTH WITH AN UNKNOWN COMPANY THAT COULD NOT SEE PT HE DOES NOT HAVE A PRIMARY DOCTOR. MARCO HAD AN APPOINTMENT WITH A DOCTOR BUT PT ENDED UP IN THE HOSPITAL AND NO DOCTOR WILL SIGN HOME HEALTH ORDERS UNTIL THEY SEE THE PATIENT. PT HAS A CANE, WALKER AND HOME OXYGEN FROM A PROVIDER IN [place]. MARCO IS IN [place] AND WILL DRIVE ALL NIGHT TO GET BACK TO [place] TO MEET WITH PT TOMORROW TO MAKE DISCHARGE ARRANGEMENTS FOR PT TO COME TO HER HOME. PT'S MARCO SEGURA, PLANS TO TAKE PT TO HER HOME IN [place] AND WILL CARE FOR PT AFTER DISCHARGE. SHE WOULD LIKE HOME HEALTH ORDERED. MAR[facility] TO MEET WITH CM 08-03-16 TO MAKE DISCHARGE ARRANGEMENTS. Mushroom Grower: Aram Perez
--- NOTE | 2016-08-02 19:40 | NUR ---
RESUMED CARE OF PT, LYING IN BED RESPIRAITONS EVEN AND UNLABORED ON ROOM AIR. HUITRON TO GRAVITY. 83 SR ON TELEMETRY. NO NEEDS NOTED AT THIS TIME. CALL LIGHT IN REACH. WILL CONTINUE TO MONITOR. SEE NURSE ASSESSMENT.
[2016-08-03] VITALS: BP 137/60
--- NOTE | 2016-08-03 02:19 | NUR ---
LYING IN BED, CALL LIGHT IN REACH. WILL CONTINUE WITH PLAN OF CARE. 79 SR WITH PVCS
[2016-08-03 04:00] VITALS: BP 158/62
[2016-08-03 08:04] VITALS: BP 160/70
--- NOTE | 2016-08-03 09:31 | NUR ---
TELEMETRY SR. RESP UL ON 02 4L NC. IV PATENT. ELANA INTACT. WILL CONT. PLAN OF CARE.
--- NOTE | 2016-08-03 10:46 | NUR ---
HUITRON CATH DCD. 600CC OP AND 10CC BULB. WILL MONITOR VOID.
--- NOTE | 2016-08-03 11:30 | NUR ---
UP AMBULATING HALLWAY WITH PT ASSIST.
[2016-08-03 13:01] VITALS: BP 130/57
--- NOTE | 2016-08-03 13:05 | NUR ---
Nutrition Follow Up: Chart reviewed. Pt is eating 79% meal avg on a diabetic [facility] soft diet. I<O. Noted 9# wt gain since admit. +BM 07/31/16. Labs noted - Glucose elevated. Meds noted including NS @ 75 ml/hr, Lantus, Humalog. Pt with good po intake at this time. Rec continue current diet. RD following.
--- NOTE | 2016-08-03 16:17 | NUR ---
HAS VOIDED 200 CC URINE OP.
[2016-08-03 16:32] VITALS: BP 153/73
--- NOTE | 2016-08-03 17:54 | NUR ---
Patient Name: HARVEY MARIE Encounter No: [id number] : 1930 Primary Insurance: [employer] CHOICE PPO MCR ADVANT Anticipated DC Date: 08-06-2016 Planned Disposition: Home with Home Health External Planned Provider: [facility] DCP follow-up note: CM MET WITH MARCO AVILES, PT'S NIECE AND POWER OF AR MANAGER. MARCO REPORTS THAT PT WILL BE MOVING IN WITH HER ON SATURDAY, SHE IS CLOSING ON A [address] AT [address] [place] [address], [address], [place], [place]. MARCO IS APPLYING FOR PT BENEFITS FROM THE [employer] AND IS STILL IN THE APPLICATION PROCESS. PT STILL HAS NO PRIMARY DOCTOR UNTIL [facility] CAN KEEP PT AT HOME LONG ENOUGH TO GO TO AN OUPATIENT APPOINTMENT WITH A PRIMARY CARE DOCTOR. [facility]CO WOULD LIKE [facility] AT DISCHARGE AND PLANS FOR PT TO DISCHARGE HOME TO HER NEW HOME ON SATURDAY. MAR[facility] HAS NO PLANS FOR PT'S CARE OVER THE WEEKEND OTHER THAN TO CHECK ON PT AT HOME EVERY FEW HOURS THROUGH THE DAY HERSELF. CM EXPLAINED THAT PT NEEDS 24 HOUR SUPERVISION. [facility] WILL NOT CONSIDER SHELTER FOR PT AND REPORTS THAT THEY CANNOT AFFORD THE $164 PER DAY COPAY FOR SHELTER FACILITY PLACEMENT. PT'S NIECE PLANS TO TAKE PT HOME ON SATURDAY TO HER HOME AT [address] [place] [address] IN [place] AND WOULD LIKE HOME HEALTH WITH [facility]. MARCO REPORTS SHE WILL BE PT'S CAREGIVER AND UNDERSTANDS PT NEEDS 24 HOUR ASSISTANCE. CM WILL REQUIRE NEW HOME HEALTH ORDER TO ARRANGE HOME HEALTH AT DISCHARGE. Aram Perez, CASE MANAGEMENT
--- NOTE | 2016-08-03 19:00 | NUR ---
RECEIVED REPORT AND ASSUMED PT CARE FROM DAY SHIFT NURSE @ THIS TIME.
[2016-08-03 21:18] VITALS: BP 155/62
[2016-08-04 04:25] VITALS: BP 127/60
[2016-08-04 07:00] VITALS: BP 121/64
--- NOTE | 2016-08-04 07:40 | NUR ---
RESTING QUIETLY UPDRAFT IN PROGRESS DENIES ANY NEEDS OR DISCOMFORT NAD NOTED
--- NOTE | 2016-08-04 11:54 | NUR ---
FSBS 229 HUMALOG 4 UNITS GIVEN SQ ABDOMEN
[2016-08-04 12:00] VITALS: BP 129/57
--- NOTE | 2016-08-04 13:13 | NUR ---
CM spoke to patient's niece Inga, per her request regarding HHS. Encouraged niece to obtain a PCP, she states she is considering Dr Silvana GALICIA, and will be setting up a new appointment next week after discharge. Maddy Kelly RN, CM
[2016-08-04 16:00] VITALS: BP 164/59
--- NOTE | 2016-08-04 17:04 | NUR ---
FSBS 176 HUMALOG 2 UNITS GIVEN SQ ABD
--- NOTE | 2016-08-04 19:15 | NUR ---
INITIAL ROUNDS MADE. PT SITTING UP IN BED RESTING WELL WITH EYES CLOSED, AWAKENED EASILY WHEN NAME CALLED. NO NEEDS OR C/O VOICED AT THIS TIME. CALL LIGHT IN REACH. WILL CONT TO MONITOR.
[2016-08-04 20:47] VITALS: BP 163/76
--- NOTE | 2016-08-04 23:25 | NUR ---
METAL SOLDERER AT BEDSIDE FOR VS. NEEDS ADDRESSED, CALL LIGHT IN REACH. WILL CONT TO MONITOR.
[2016-08-05 00:24] VITALS: BP 177/82
[2016-08-05 04:39] VITALS: BP 156/69
--- NOTE | 2016-08-05 05:15 | NUR ---
NO CHANGES IN ASSESSMENT. CALL LIGHT IN REACH. DENIES NEEDS. CONT TO MONITOR.
--- NOTE | 2016-08-05 07:30 | NUR ---
RECEIVED PT IN BED EYES CLOSED RESP UNLABORED O2 ON 4LPM NC NS PATENT PER PUMP TO RFA AT 75CC/HR WITH DIFFICULTY SITE FREE OF REDNESS OR EDEMA
--- NOTE | 2016-08-05 11:47 | NUR ---
FSBS 162 HUMALOG 3 UNITS GIVEN SQ RT ARM
[2016-08-05 13:01] VITALS: BP 144/71
--- NOTE | 2016-08-05 16:20 | NUR ---
FSBS 132
[2016-08-05 16:39] VITALS: BP 189/83
--- NOTE | 2016-08-05 19:37 | NUR ---
RESUMED CARE OF PT, LYING IN BED RESPIRATIONS EVEN AND UNLABORED ON 4LPM VIA NC. 76 SR ON TELEMETRY. RIGHT FOREARM INFUSING NS @ 75. NO NEEDS VOICED AT THIS TIME. CALL LIGHT IN REACH. WILL CONTINUE TO MONITOR. SEE NURSE ASSESSMENT.
[2016-08-05 20:00] VITALS: BP 154/66
[2016-08-06] VITALS: BP 179/83
[2016-08-06 05:43] LABS: BASOPHILS 0.3 % (0.0-2.0); EOSINOPHILS 3.6 % (0-7); HEMATOCRIT 37.7 % (42.0-54.0); HEMOGLOBIN 11.8 g/dL (13.5-17.5); IMMATURE GRANULOCYTES 0.4 % (0-5); LYMPHOCYTES 23.2 % (15-50); MCHC 31.3 g/dL (31.0-37.0); MCV 89.3 fL (80.0-100.0); MEAN PLATELET VOLUME 9.9 fL (7.4-10.4); MONOCYTES 7.8 % (2-11); NEUTROPHILS 64.7 % (40-80); PLATELET COUNT 266 10x3/uL (130-400); RBC 4.22 10x6/uL (4.20-6.10); RDW 14.2 % (11.5-14.5); WBC 10.3 10x3/uL (4.8-10.8)
[2016-08-06 05:58] LABS: ANION GAP 12.6 mmol/L (8-16); CALCIUM 8.9 mg/dL (8.5-10.1); CARBON DIOXIDE 28.1 mmol/L (21.0-32.0); CREATININE - SERUM 1.1 mg/dL (0.6-1.3); POTASSIUM - SERUM 3.7 mmol/L (3.5-5.1)
[2016-08-06 08:14] VITALS: BP 176/82
--- NOTE | 2016-08-06 09:39 | NUR ---
TELEMETRY SR. RESP UL ON 02 10L OXIMIZER. AMBULATES HALLWAY WITH PT ASSIST. WILL CONT. PLAN OF CARE.
[2016-08-06 11:36] VITALS: BP 145/57
--- NOTE | 2016-08-06 11:47 | NUR ---
02 SAT 95% ON 02 5L 0XIMIZER. WILL CONT. TO MONITOR.
--- NOTE | 2016-08-06 13:21 | NUR ---
UP AMBULATING WITH PT ASSIST.
[2016-08-06 15:32] VITALS: BP 121/51
--- NOTE | 2016-08-06 19:15 | NUR ---
INITIAL ROUNDS MADE. PT SITTING UP IN BED WATCHING TV. DENIES NEEDS OR C/O AT THIS TIME. CALL LIGHT IN REACH. WILL CONT TO MONITOR.
[2016-08-06 20:00] VITALS: BP 140/70
[2016-08-07] VITALS: BP 151/55
--- NOTE | 2016-08-07 00:54 | NUR ---
DONOR RELATIONS OFFICER AT BEDSIDE, NEEDS ADDRESSED AT THIS TIME. CALL LIGHT IN REACH. WILL CONT TO MONITOR.
[2016-08-07 04:00] VITALS: BP 145/61
[2016-08-07 05:02] LABS: BASOPHILS 0.6 % (0.0-2.0); EOSINOPHILS 4.1 % (0-7); HEMATOCRIT 33.6 % (42.0-54.0); HEMOGLOBIN 10.2 g/dL (13.5-17.5); IMMATURE GRANULOCYTES 0.3 % (0-5); LYMPHOCYTES 24.7 % (15-50); MCH 27.2 pg (26.0-34.0); MCHC 30.4 g/dL (31.0-37.0); MCV 89.6 fL (80.0-100.0); MEAN PLATELET VOLUME 9.9 fL (7.4-10.4); NEUTROPHILS 61.3 % (40-80); PLATELET COUNT 245 10x3/uL (130-400); RBC 3.75 10x6/uL (4.20-6.10); RDW 14.3 % (11.5-14.5)
[2016-08-07 05:34] LABS: CALC OSMOLALITY 284 mosm/kg (275-300); CALCIUM 8.6 mg/dL (8.5-10.1); CARBON DIOXIDE 29.2 mmol/L (21.0-32.0); CHLORIDE - SERUM 107 mmol/L (98-107); GLUCOSE 125 mg/dL (74-106); POTASSIUM - SERUM 3.6 mmol/L (3.5-5.1); SODIUM 142 mmol/L (136-145); UREA NITROGEN 14 mg/dL (7-18); eGFR NON AFRICAN AMERICAN 75 mL/min (90-120)
[2016-08-07 07:58] VITALS: BP 180/76
--- NOTE | 2016-08-07 09:40 | NUR ---
TELEMETRY SR. IV PATENT. RESP UL ON OXIMIZER. CALL LIGHT IN REACH. BED ALARM ON. WILL CONT. PLAN OF CARE.
[2016-08-07 11:41] VITALS: BP 174/73
--- NOTE | 2016-08-07 13:30 | NUR ---
AMBULATES HALLWAY WITH PT ASSIST.
[2016-08-07 14:47] VITALS: BP 154/66
--- NOTE | 2016-08-07 16:52 | NUR ---
Patient Name: HARVEY MARIE Encounter No: [id number] : 1930 Primary Insurance: [employer] CHOICE PPO MCR ADVANT Anticipated DC Date: 08-06-2016 Planned Disposition: Home with Home Health External [facility] Provider[facility] DCP follow-up note: CM RECEIVED CALL FROM MARCO AVILES, WHO REPORTED HAVING 2 BEDROOM HOME NOW FOR PT TO MOVE IN WITH HER. MARCO REPORTS BEING READY TO RECEIVE PT AT HOME FOR DISCHARGE, SHE WILL LITIGATION ASSISTANT PT AT DISCHARGE. PT'S NIECE/POA PLANS TO TAKE PT HOME ON SATURDAY TO HER HOME [place] [address] [place] [address] IN [place] AND WOULD [facility]. MARCO REPORTS SHE WILL BE PT'S CAREGIVER AND UNDERSTANDS PT NEEDS 24 HOUR ASSISTANCE. CM WILL REQUIRE NEW HOME HEALTH ORDER TO ARRANGE HOME HEALTH AT DISCHARGE. Aram Perez, CASE MANAGEMENT
--- NOTE | 2016-08-07 19:15 | NUR ---
INITIAL ROUNDS MADE. PT LYING IN BED RESTING WELL WITH EYES CLOSED, AWAKENED EASILY WHEN NAME CALLED. DENIES NEEDS OR C/O AT THIS TIME. WILL CONT TO MONITOR.
[2016-08-07 20:00] VITALS: BP 153/69
[2016-08-08] VITALS: BP 134/51
[2016-08-08 04:00] VITALS: BP 162/83
[2016-08-08 04:40] LABS: BASOPHILS 0.3 % (0.0-2.0); EOSINOPHILS 3.8 % (0-7); HEMATOCRIT 34.2 % (42.0-54.0); HEMOGLOBIN 10.6 g/dL (13.5-17.5); IMMATURE GRANULOCYTES 0.2 % (0-5); LYMPHOCYTES 22.4 % (15-50); MCH 27.5 pg (26.0-34.0); MCV 88.6 fL (80.0-100.0); MEAN PLATELET VOLUME 10.1 fL (7.4-10.4); NEUTROPHILS 64.3 % (40-80); PLATELET COUNT 232 10x3/uL (130-400); RBC 3.86 10x6/uL (4.20-6.10); RDW 14.3 % (11.5-14.5); WBC 8.9 10x3/uL (4.8-10.8)
[2016-08-08 05:33] LABS: CALC OSMOLALITY 280 mosm/kg (275-300); CALCIUM 8.6 mg/dL (8.5-10.1); CARBON DIOXIDE 28.7 mmol/L (21.0-32.0); CHLORIDE - SERUM 104 mmol/L (98-107); GLUCOSE 108 mg/dL (74-106); POTASSIUM - SERUM 3.5 mmol/L (3.5-5.1); PRO BNP 2556 pg/mL (0-450); SODIUM 140 mmol/L (136-145); UREA NITROGEN 14 mg/dL (7-18); eGFR NON AFRICAN AMERICAN 75 mL/min (90-120)
[2016-08-08 07:57] VITALS: BP 175/76
--- NOTE | 2016-08-08 09:09 | NUR ---
RESP UL ON 02 5L OXIMIZER. TELEMETRY SR. REPOSITIONED IN BED FOR COMFORT. WILL CONT. PLAN OF CARE.
[2016-08-08 11:27] VITALS: BP 132/63
--- NOTE | 2016-08-08 13:38 | NUR ---
AMBULATES WITH PT ASSIST.
[2016-08-08 15:35] VITALS: BP 180/74
--- NOTE | 2016-08-08 19:32 | NUR ---
RESUMED CARE OF PT, LYING IN BED WITH EYES CLOSED RESPIRATIONS EVEN AND UNLABORED ON 5LPM VIA OXYMIZER. RIGHT WRIST SALINE LOCKED. 87 SR ON TELEMETRY. CALL LIGHT IN REACH. WILL CONTINUE TO MONITOR. SEE NURSE ASSESSMENT.
[2016-08-08 20:24] VITALS: BP 139/64
[2016-08-09 00:14] VITALS: BP 127/93
--- NOTE | 2016-08-09 00:36 | NUR ---
ACCOUNTS PAYABLES CLERK AT BEDSIDE TO OBTAIN VITALS, CALL LIGHT IN REACH. WILL CONTINUE WITH PLAN OF CARE.
--- NOTE | 2016-08-09 03:10 | NUR ---
LYING IN BED WITH EYES CLOSED, CALL LIGHT IN REACH. BED ALARM ON.
[2016-08-09 04:44] VITALS: BP 142/66
[2016-08-09 05:35] LABS: BASOPHILS 0.5 % (0.0-2.0); EOSINOPHILS 4.1 % (0-7); HEMATOCRIT 34.2 % (42.0-54.0); HEMOGLOBIN 10.4 g/dL (13.5-17.5); IMMATURE GRANULOCYTES 0.2 % (0-5); LYMPHOCYTES 26.2 % (15-50); MCHC 30.4 g/dL (31.0-37.0); MCV 88.8 fL (80.0-100.0); MEAN PLATELET VOLUME 10.3 fL (7.4-10.4); MONOCYTES 8.2 % (2-11); NEUTROPHILS 60.8 % (40-80); PLATELET COUNT 255 10x3/uL (130-400); RBC 3.85 10x6/uL (4.20-6.10); RDW 14.4 % (11.5-14.5); WBC 8.9 10x3/uL (4.8-10.8)
[2016-08-09 05:58] LABS: ANION GAP 10.9 mmol/L (8-16); CALCIUM 8.8 mg/dL (8.5-10.1); CARBON DIOXIDE 30.1 mmol/L (21.0-32.0); CREATININE - SERUM 1.1 mg/dL (0.6-1.3)
--- NOTE | 2016-08-09 06:35 | NUR ---
NO CHANGES FROM PREVIOUS ASSESSMENT, CALL LIGHT IN REACH. WILL CONTINUE TO MONITOR.
--- NOTE | 2016-08-09 07:30 | NUR ---
RECEIVED PT IN BED EYES CLOSED RESP UNLABORED O2 ON 5 LPM PER OXIMIZER NAD NOTED WILL CONTINUE TO MONITOR
[2016-08-09 08:26] VITALS: BP 169/79
[2016-08-09 11:56] VITALS: BP 167/66
--- NOTE | 2016-08-09 12:04 | NUR ---
FSBS 164 HUMALOG 2 UNITS GIVEN SQ TO LT ARM
[2016-08-09 15:21] VITALS: BP 170/67
--- NOTE | 2016-08-09 16:45 | NUR ---
FSBS 156 HUMALOG 2 UNITS GIVEN SQ LT ARM
--- NOTE | 2016-08-09 19:27 | NUR ---
RESUMED CARE OF PT, LYING IN BED RESPIRATIONS EVEN AND UNLABORED ON 5LPM VIA OXYMIZER. 85 SR ON TELEMETRY. BED ALARM ON. NO NEEDS NOTED AT THIS TIME. PLEASANTLY CONFUSED, CALL LIGHT IN REACH. WILL CONTINUE TO MONITOR. SEE NURSE ASSESSMENT.
[2016-08-09 21:33] VITALS: BP 105/48
[2016-08-10 01:06] VITALS: BP 144/62
--- NOTE | 2016-08-10 05:16 | NUR ---
RETAIL PHARMACY MANAGER AT BEDSIDE TO OBTAIN VITALS, CALL LIGHT IN REACH. WILL CONTINUE WITH PLAN OF CARE.
[2016-08-10 05:24] VITALS: BP 158/72
[2016-08-10 05:40] LABS: BASOPHILS 0.5 % (0.0-2.0); EOSINOPHILS 3.5 % (0-7); HEMATOCRIT 34.7 % (42.0-54.0); HEMOGLOBIN 10.7 g/dL (13.5-17.5); IMMATURE GRANULOCYTES 0.2 % (0-5); LYMPHOCYTES 26.1 % (15-50); MCH 27.3 pg (26.0-34.0); MCHC 30.8 g/dL (31.0-37.0); MCV 88.5 fL (80.0-100.0); MEAN PLATELET VOLUME 10.2 fL (7.4-10.4); MONOCYTES 9.4 % (2-11); NEUTROPHILS 60.3 % (40-80); PLATELET COUNT 267 10x3/uL (130-400); RBC 3.92 10x6/uL (4.20-6.10); RDW 14.3 % (11.5-14.5); WBC 9.8 10x3/uL (4.8-10.8)
[2016-08-10 05:50] LABS: ANION GAP 8.2 mmol/L (8-16); CARBON DIOXIDE 32.3 mmol/L (21.0-32.0); CREATININE - SERUM 1.1 mg/dL (0.6-1.3); POTASSIUM - SERUM 3.5 mmol/L (3.5-5.1)
[2016-08-10 08:31] VITALS: BP 158/83
--- NOTE | 2016-08-10 12:11 | NUR ---
FSBS 239 HUMALOG 4 UNITS GIVEN SQ ABDOMEN
[2016-08-10 12:47] VITALS: BP 112/59
--- NOTE | 2016-08-10 17:12 | NUR ---
FSBS 154 HUMALOG 2 UNITS GIVEN SQ RT ARM
--- NOTE | 2016-08-10 17:13 | NUR ---
FSBS 154 HUMALOG 2 UNITS GIVEN SQ RT ARM
[2016-08-10 18:07] VITALS: BP 115/62
[2016-08-10 20:21] VITALS: BP 171/80
[2016-08-11 00:31] VITALS: BP 172/81
[2016-08-11 08:08] VITALS: BP 122/53
--- NOTE | 2016-08-11 10:11 | NUR ---
RESTS IN BED. RESP UL ON 02 5L NC. TELEMETRY SR. BED ALARM ON. WILL CONT. PLAN OF CARE.
[2016-08-11 11:57] VITALS: BP 119/45
--- NOTE | 2016-08-11 13:24 | NUR ---
UP TO AMBULATE WITH PT ASSIST.
[2016-08-11 16:07] VITALS: BP 104/44
[2016-08-11 21:16] VITALS: BP 109/56
[2016-08-12 04:30] VITALS: BP 110/64
[2016-08-12 07:54] VITALS: BP 152/66
--- NOTE | 2016-08-12 08:59 | NUR ---
REPOSITIONED IN BED FOR COMFORT. RESP UL ON 02 4L NC. CALL LIGHT IN REACH. WILL MONITOR NEEDS.
[2016-08-12 12:22] VITALS: BP 115/50
[2016-08-12 15:45] VITALS: BP 113/45
--- NOTE | 2016-08-12 19:15 | NUR ---
INITIAL ROUNDS MADE. PT SITTING UP IN BED WATCHING TV. DENIES NEEDS OR C/O AT THIS TIME. CALL LIGHT IN REACH. WILL CONT TO MONITOR.
[2016-08-12 20:00] VITALS: BP 156/57
[2016-08-13] VITALS: BP 147/71
--- NOTE | 2016-08-13 03:52 | NUR ---
TECHNOLOGY ADVISOR AT BEDSIDE FOR VS. NEEDS ADDRESSED. CALL LIGHT IN REACH. WILL CONT TO MONITOR.
[2016-08-13 04:00] VITALS: BP 128/53
[2016-08-13 06:48] LABS: BASOPHILS 0.5 % (0.0-2.0); EOSINOPHILS 4.1 % (0-7); HEMATOCRIT 36.7 % (42.0-54.0); HEMOGLOBIN 11.4 g/dL (13.5-17.5); IMMATURE GRANULOCYTES 0.3 % (0-5); LYMPHOCYTES 20.3 % (15-50); MCH 27.5 pg (26.0-34.0); MCHC 31.1 g/dL (31.0-37.0); MCV 88.6 fL (80.0-100.0); MEAN PLATELET VOLUME 10.1 fL (7.4-10.4); MONOCYTES 9.5 % (2-11); NEUTROPHILS 65.3 % (40-80); PLATELET COUNT 269 10x3/uL (130-400); RBC 4.14 10x6/uL (4.20-6.10); RDW 14.5 % (11.5-14.5); WBC 9.9 10x3/uL (4.8-10.8)
[2016-08-13 07:06] LABS: ANION GAP 11.2 mmol/L (8-16); CALCIUM 9.2 mg/dL (8.5-10.1); CARBON DIOXIDE 30.8 mmol/L (21.0-32.0); CREATININE - SERUM 1.1 mg/dL (0.6-1.3)
--- NOTE | 2016-08-13 07:30 | NUR ---
RECEIVED PT IN BED EYES CLOSED RESP UNLABORED NAD NOTED
[2016-08-13 08:50] VITALS: BP 129/61
--- NOTE | 2016-08-13 12:08 | NUR ---
FSBS 239 HUMALOG 4 UNITS GIVEN SQ
[2016-08-13 12:33] VITALS: BP 135/48
[2016-08-13] MEDS ORDERED: LASIX20 MG PO (14:16)
--- NOTE | 2016-08-13 15:14 | NUR ---
OXYGEN SATURATION 77 ON ROOM AIR AT REST OXYGEN REAPPLIED PER NASAL CANNULA AT 4LPM OXYGEN SATURATION BACK UP TO 93%
[2016-08-13 16:15] VITALS: BP 183/72
--- NOTE | 2016-08-13 16:41 | NUR ---
FSBS 158
--- NOTE | 2016-08-13 18:30 | NUR ---
REVIEWED DISCHARGE INSTRUCTIONS WITH PT AND IMELDA BOTH STATE UNDERSTANDING COPY GIVEN TO SHERIF WENT TO HOOK PT UP TO PORTABLE O2 TANK WAS EMPTY IMELDA HAD TO GO HOME AND GET A NEW TANK
--- NOTE | 2016-08-13 19:30 | NUR ---
NEICE HERE WITH PORTABLE O2 TANK PT CONNECTED AT 4 LPM NC PT DISCHARGED IN STABLE CONDITION WITH ALL PERSONAL BELONGINGS LEFT UNIT VIA W/C
== END 2016-08-13 19:30 | disposition home health service (06) | DRG 193 ==
LOC: D.ER 00:03 → D.M2 01:48
PROVIDERS: Emergency Medicine; Family Medicine; Internal Medicine Pulmonary Disease; ADMIT Family Medicine
PROC: 0T9B70Z Drainage of Bladder with Drainage Device, Via Natural or Artificial Opening (ICD-10-PCS; principal; 2016-07-29)
DX: J18.9 Pneumonia, unspecified organism (principal); R53.2 Functional quadriplegia; N39.0 Urinary tract infection, site not specified; N17.9 Acute kidney failure, unspecified; D62 Acute posthemorrhagic anemia; B95.2 Enterococcus as the cause of diseases classified elsewhere; E11.65 Type 2 diabetes mellitus with hyperglycemia; Z79.4 Long term (current) use of insulin; R41.0 Disorientation, unspecified; K59.00 Constipation, unspecified; K57.90 Diverticulosis of intestine, part unspecified, without perforation or abscess without bleeding; K64.9 Unspecified hemorrhoids; I10 Essential (primary) hypertension; I08.3 Combined rheumatic disorders of mitral, aortic and tricuspid valves; I27.2 Other secondary pulmonary hypertension; N40.0 Benign prostatic hyperplasia without lower urinary tract symptoms